=== PATIENT | male | born 1955 | race Caucasian/White ===

== ENCOUNTER 2016-10-16 16:34 | Emergency (ER) | payer OTHER ==
[~2016-10-16] VITALS: Ht 180.3 cm; Wt 81.8 kg
[~2016-10-16 16:34] MED LIST: CHLORASEPTIC 1177 M1 MM; CIPRO 250MG TA250 MG PEG; DILANTIN; DILANTIN 100MG100 MG PO; DILANTIN KAPSEA30 MG PO; GLUCOPHAGE850 MG/TAB PO; HEPARIN 50500 U/5 ML IV; MAGIC MOUTH PO; MAGIC MOUTHWASH1 M2 PO; NORCO 325 MG-51 TAB PO; NORMAL SALINE I10 ML IV; PHENOBARBITAL 330 MG PO; PROQUIN XR500 MG PO; RIOMET500 MG/5 M PEG
[2016-10-16 16:35] VITALS: BP 148/84; TEMP 97.4
[2016-10-16] MEDS ORDERED: DILANTIN 100MG100 MG PO (16:41)
[2016-10-16] MEDS ORDERED: DILANTIN KAPSEA30 MG PO (16:41)
[2016-10-16] MEDS ORDERED: PHENOBARBITAL32.4 MG PO (16:42)
[2016-10-16] MEDS ORDERED: SALAGEN 5MG TAB5 MG PO (16:43)
[2016-10-16] MEDS ORDERED: NORCO 325 MG-51 TAB PO (17:16)
[2016-10-16 17:46] VITALS: PULSE 76
== END 2016-10-16 17:47 | disposition home or self-care (01) ==
LOC: COL.ER 16:34
DX: S30.0XXA Contusion of lower back and pelvis, initial encounter (principal); S20.222A Contusion of left back wall of thorax, initial encounter; S20.221A Contusion of right back wall of thorax, initial encounter; S40.011A Contusion of right shoulder, initial encounter; S40.021A Contusion of right upper arm, initial encounter; S39.012A Strain of muscle, fascia and tendon of lower back, initial encounter; V23.4XXA Motorcycle driver injured in collision with car, pick-up truck or van in traffic accident, initial encounter; Y92.414 Local residential or business street as the place of occurrence of the external cause; G40.909 Epilepsy, unspecified, not intractable, without status epilepticus

== ENCOUNTER → 2016-11-27 | Outpatient (CLI) | payer OTHER ==
[~2016-11-27] MED LIST changes: +PHENOBARBITAL32.4 MG PO; +SALAGEN 5MG TAB5 MG PO
== END ==
LOC: COL.RAD 08:15
DX: T14.90 Injury, unspecified (principal); G89.11 Acute pain due to trauma; M25.561 Pain in right knee; M79.601 Pain in right arm; M25.511 Pain in right shoulder; V89.2XXD Person injured in unspecified motor-vehicle accident, traffic, subsequent encounter
CPT/HCPCS: A9503

== ENCOUNTER → 2016-12-02 | Outpatient (CLI) | payer OTHER | LOC: COL.RAD 14:43 | DX: M47.23 Other spondylosis with radiculopathy, cervicothoracic region (principal); R20.0 Anesthesia of skin ==

== ENCOUNTER → 2017-12-24 | Outpatient (CLI) | payer OTHER | LOC: COL.RAD 16:46 | DX: Z09 Encounter for follow-up examination after completed treatment for conditions other than malignant neoplasm (principal); Z87.39 Personal history of other diseases of the musculoskeletal system and connective tissue; Z98.1 Arthrodesis status; Z96.7 Presence of other bone and tendon implants ==

== ENCOUNTER 2019-04-27 11:20 | Day surgery (SDC) | payer OTHER ==
[~2019-04-27] VITALS: Ht 180.3 cm; Wt 73.1 kg
[2019-04-27] MEDS ORDERED: PRILOSEC 20MG20 MG PO (11:45)
[2019-04-27 11:50] VITALS: BP 132/67; PULSE 58; TEMP 98.7
[2019-04-27 12:14] LABS: ALBUMIN 3.9 gm/dL (3.5-5.0); CALCIUM 9.1 mg/dL (8.4-10.2); CREATININE, serum 0.81 (0.66-1.25); POTASSIUM 4.1 mmol/L (3.4-5.0)
[2019-04-27] MEDS ORDERED: NORCO 325 MG-51 TAB PO (14:35)
[2019-04-27 15:03] VITALS: TEMP 98.5
[2019-04-27 15:05] VITALS: BP 153/72; PULSE 66
--- NOTE | 2019-04-27 15:05 | NUR ---
Patient returns to room 8 per cart from PACU accompanied by Jazlyn PEÑA and is awake and alert. Temp 97.7 and room air sats 98%. Port a catheter noted on the right anterior chest and bandaids x2. Port insertion site soft without drainage or redness. Gauze dressing around the PEG tube insertion site dry. IV fluids continue to infuse and site is free of redness. Spouse in room. Siderails up x2 and call light in reach.
[2019-04-27 15:20] VITALS: BP 127/67; PULSE 63
--- NOTE | 2019-04-27 15:20 | NUR ---
Room air sats 97%. Resting and denies pain or nausea.
[2019-04-27 15:35] VITALS: BP 132/67; PULSE 57
--- NOTE | 2019-04-27 15:35 | NUR ---
Assisted up to the bathroom and voids and returns to room. Gait steay. Denies pain or nausea. Port a catheter insertion site soft and PEG tube guaze dressing dry.
--- NOTE | 2019-04-27 15:45 | NUR ---
IV discontinued and given PEG tube feeding instructions. Patient and spouse both verbalize understanding of these. Provided feeding supplies. Dietican and social work job titles talked with the patient. All questions were answered.
--- NOTE | 2019-04-27 15:55 | NUR ---
Dismissal instructions signed. Patient and spouse again demostrate and verbalize understanding of home cares and follow up as needed.
--- NOTE | 2019-04-27 16:05 | NUR ---
Patient dismissed to home driven by spouse and taken to the patient entrance per wheelchair and assisted into vehicle with instructions in hand by Brunilda PEÑA.
--- NOTE | 2019-04-27 16:34 | NUR ---
ASSOCIATE DIRECTOR OF DEVELOPMENT student responded to [facility] for a peg tube placement. ASSOCIATE DIRECTOR OF DEVELOPMENT student met with the patient and his , Basil. ASSOCIATE DIRECTOR OF DEVELOPMENT student presented the DME choice form and patient and chose [facility]. ASSOCIATE DIRECTOR OF DEVELOPMENT student faxed the order. The patient and his could not pickling drum operator the supplies this day. [facility] reports they can deliver 04/28/19. Patient and his were agreeable. ASSOCIATE DIRECTOR OF DEVELOPMENT student collaborated the above information with the dietitian.
== END 2019-04-27 16:05 | disposition home or self-care (01) ==
LOC: SDCO 11:20
PROVIDERS: Surgery
DX: C10.2 Malignant neoplasm of lateral wall of oropharynx (principal); R13.12 Dysphagia, oropharyngeal phase; Z79.899 Other long term (current) drug therapy; R56.9 Unspecified convulsions; Z90.49 Acquired absence of other specified parts of digestive tract; Z93.0 Tracheostomy status; Z92.3 Personal history of irradiation; G89.29 Other chronic pain; M19.90 Unspecified osteoarthritis, unspecified site; G47.33 Obstructive sleep apnea (adult) (pediatric); Z87.891 Personal history of nicotine dependence
CPT/HCPCS: C1788; J1644; J2250; J2704; J3010; J7120

== ENCOUNTER 2019-05-03 00:30 | Emergency (ER) | payer OTHER ==
[~2019-05-03] VITALS: Ht 180.3 cm; Wt 72.7 kg
[~2019-05-03 00:30] MED LIST changes: +PRILOSEC 20MG20 MG PO
[2019-05-03 00:36] VITALS: TEMP 97.6
[2019-05-03 01:03] LABS: BASO % 0.5 % (0.0-2.0); EOS # 0.5 (0.0-0.7); EOS % 8.9 % (0-4.0); GRAN # 3.7 (1.4-6.5); GRAN % 62.1 % (42.2-75.2); HEMATOCRIT 38.1 % (42.0-52.0); HEMOGLOBIN 12.9 g/dl (13.5-18.0); LYMPH # 0.8 (1.2-3.4); LYMPH % 13.3 % (20.0-51.0); MEAN CELL VOLUME 92 fl (80.0-100.0); MEAN CORPUSCULAR HEMOGLOBIN 31 pg (27.0-31.0); MEAN CORPUSCULAR HGB CONC 34 g/dl (33.0-37.0); MONO # 0.9 (0.1-0.6); PLATELET COUNT 298 K/mm3 (130-400); RED BLOOD COUNT 4.16 M/mm3 (4.20-5.60); REDCELL DISTRIBUTION WIDTH-CV 12.6 % (11.5-14.5)
[2019-05-03 01:04] LABS: INR 0.9 (0.8-3.0); PROTHROMBIN TIME 10.5 SECONDS (9.7-12.8)
[2019-05-03 01:07] LABS: PARTIAL THROMBOPLASTIN TIME 29.4 SECONDS (26.0-37.0)
[2019-05-03 01:09] LABS: ALANINE AMINOTRANSFERASE 35 U/L (21-72); ALBUMIN 4.4 gm/dL (3.5-5.0); ALKALINE PHOSPHATASE 151 U/L (50-136); ANION GAP 10 mmol/L (7-16); AST,SGOT 27 U/L (15-37); BILIRUBIN,TOTAL 0.2 mg/dL (0.0-1.0); BLOOD UREA NITROGEN 19 mg/dL (9-20); CALCIUM 9.3 mg/dL (8.4-10.2); CARBON DIOXIDE 33 mmol/L (22-30); CHLORIDE 98 mmol/L (98-107); CREATININE, serum 0.76 (0.66-1.25); GLUCOSE 66 mg/dL (74-106); LIPASE 235 U/L (23-300); MAGNESIUM 2.1 mg/dL (1.6-2.3); PHOSPHOROUS 3.4 mg/dL (2.5-4.5); POTASSIUM 5.1 mmol/L (3.4-5.0); SODIUM 140 mmol/L (137-145); TOTAL PROTEIN 8.2 gm/dL (6.4-8.2)
[2019-05-03 01:23] LABS: TROPONIN-I < 0.012 ng/mL (0.000-0.035)
[2019-05-03 01:56] LABS: COLLECTION METHOD CLEAN CATCH
[2019-05-03 02:01] LABS: MUCOUS Present /lpf; PH 7 (5-8); SQUAMOUS EPITHELIAL None Seen /hpf; URINE APPEARANCE Clear; URINE BACTERIA None Seen /hpf; URINE BILIRUBIN Negative (NEGATIVE); URINE BLOOD Negative (NEGATIVE); URINE COLOR Yellow; URINE GLUCOSE 1+ (NEGATIVE); URINE KETONE Negative (NEGATIVE); URINE LEUKOCYTE ESTERASE Negative (NEGATIVE); URINE NITRATE Negative (NEGATIVE); URINE PROTEIN(semi-quant) Negative (NEGATIVE); URINE RBC None Seen /hpf; URINE UROBILINOGEN Negative (NEGATIVE); URINE WBC None Seen /hpf
[2019-05-03 04:00] VITALS: BP 148/78
[2019-05-03 04:40] VITALS: PULSE 78
== END 2019-05-03 04:42 | disposition home or self-care (01) ==
LOC: COL.ER 00:30
PROVIDERS: Emergency Medicine
DX: R06.02 Shortness of breath (principal); R10.30 Lower abdominal pain, unspecified; C06.9 Malignant neoplasm of mouth, unspecified
CPT/HCPCS: J3010; J7030; Q9967

== ENCOUNTER 2019-05-19 12:00 | Emergency (ER) | payer OTHER ==
[~2019-05-19] VITALS: Ht 180.3 cm; Wt 72.7 kg
[2019-05-19 12:03] VITALS: BP 148/91; TEMP 98
[2019-05-19 13:53] LABS: BASO % 0.4 % (0.0-2.0); EOS # 0.3 (0.0-0.7); EOS % 3.3 % (0-4.0); GRAN # 6.2 (1.4-6.5); GRAN % 78.6 % (42.2-75.2); HEMATOCRIT 40.1 % (42.0-52.0); HEMOGLOBIN 13.6 g/dl (13.5-18.0); LYMPH # 0.5 (1.2-3.4); LYMPH % 6.3 % (20.0-51.0); MEAN CELL VOLUME 92 fl (80.0-100.0); MEAN CORPUSCULAR HEMOGLOBIN 31 pg (27.0-31.0); MEAN CORPUSCULAR HGB CONC 34 g/dl (33.0-37.0); MEAN PLATELET VOLUME 9.2 fl (7.4-10.4); MONO # 0.9 (0.1-0.6); MONO % 11.1 % (1.7-9.3); PLATELET COUNT 343 K/mm3 (130-400); RED BLOOD COUNT 4.37 M/mm3 (4.20-5.60); REDCELL DISTRIBUTION WIDTH-CV 13.2 % (11.5-14.5)
[2019-05-19 14:03] LABS: ALANINE AMINOTRANSFERASE 43 U/L (21-72); ALBUMIN 4.5 gm/dL (3.5-5.0); ALKALINE PHOSPHATASE 151 U/L (50-136); ANION GAP 8 mmol/L (7-16); AST,SGOT 27 U/L (15-37); BILIRUBIN,TOTAL 0.2 mg/dL (0.0-1.0); BLOOD UREA NITROGEN 22 mg/dL (9-20); CALCIUM 9.3 mg/dL (8.4-10.2); CARBON DIOXIDE 35 mmol/L (22-30); CHLORIDE 93 mmol/L (98-107); GLUCOSE 112 mg/dL (74-106); MAGNESIUM 2.2 mg/dL (1.6-2.3); POTASSIUM 4.8 mmol/L (3.4-5.0); SODIUM 136 mmol/L (137-145); TOTAL PROTEIN 8.4 gm/dL (6.4-8.2)
--- NOTE | 2019-05-19 14:07 | NUR ---
ALBA dowd responded to a social service liaison consult to the ED for the patient due to wanting advanced directives information. ALBA dowd met with patient and patient was interested in completing a DPOA-HC. ALBA dowd and ED staff witnessed. A copy was placed in the chart and the original and copies were provided to the patient. ALBA dowd collaborated the above information with the patient's nurse.
[2019-05-19 14:15] LABS: TROPONIN-I < 0.012 ng/mL (0.000-0.035)
[2019-05-19] MEDS ORDERED: PHENOBARBITAL32.4 MG PO (14:28)
[2019-05-19] MEDS ORDERED: NORCO 325 MG-101 TAB PO (14:30)
[2019-05-19] MEDS ORDERED: DILANTIN KAPSEA30 MG PO (15:35)
[2019-05-19] MEDS ORDERED: SALAGEN 5MG TAB5 MG PO (15:36)
[2019-05-19] MEDS ORDERED: SYNTHROID0.075 MG/T PO (15:36)
[2019-05-19] MEDS ORDERED: FLOMAX 0.40.4 MG/CAP PO (15:36)
[2019-05-19] MEDS ORDERED: LYRICA 50MG CAP50 MG PO (15:36)
[2019-05-19 17:01] VITALS: PULSE 78
== END 2019-05-19 17:01 | disposition home or self-care (01) ==
LOC: COL.ER 12:00
PROVIDERS: Emergency Medicine
DX: C32.9 Malignant neoplasm of larynx, unspecified (principal); R60.0 Localized edema; Z90.89 Acquired absence of other organs
CPT/HCPCS: J1100; J7030

== ENCOUNTER 2019-05-25 19:09 | Inpatient (IN) | payer OTHER ==
[~2019-05-25] VITALS: Ht 180.3 cm; Wt 78.6 kg
[2019-05-25] VITALS (19 sets, daily range): O2SAT 98–100
[~2019-05-25 19:09] MED LIST changes: +FLOMAX 0.40.4 MG/CAP PO; +LYRICA 50MG CAP50 MG PO; +NORCO 325 MG-101 TAB PO; +SYNTHROID0.075 MG/T PO
[2019-05-25 21:46] LABS: ALBUMIN 4.2 gm/dL (3.5-5.0); BILIRUBIN,TOTAL 0.4 mg/dL (0.0-1.0); CALCIUM 8.8 mg/dL (8.4-10.2); CREATININE, serum 0.63 (0.66-1.25); POTASSIUM 5.1 mmol/L (3.4-5.0); TOTAL PROTEIN 7.9 gm/dL (6.4-8.2)
[2019-05-25 22:40] LABS: BASO % 0.4 % (0.0-2.0); EOS # 0.2 (0.0-0.7); EOS % 2.6 % (0-4.0); GRAN # 7.1 (1.4-6.5); GRAN % 79.2 % (42.2-75.2); HEMATOCRIT 39.5 % (42.0-52.0); HEMOGLOBIN 13.4 g/dl (13.5-18.0); LYMPH # 0.5 (1.2-3.4); LYMPH % 5.9 % (20.0-51.0); MEAN CELL VOLUME 93 fl (80.0-100.0); MEAN CORPUSCULAR HEMOGLOBIN 32 pg (27.0-31.0); MEAN CORPUSCULAR HGB CONC 34 g/dl (33.0-37.0); MEAN PLATELET VOLUME 9.4 fl (7.4-10.4); MONO % 11.5 % (1.7-9.3); PLATELET COUNT 254 K/mm3 (130-400); RED BLOOD COUNT 4.25 M/mm3 (4.20-5.60); REDCELL DISTRIBUTION WIDTH-CV 13.5 % (11.5-14.5)
--- NOTE | 2019-05-25 23:10 | NUR ---
PT arrived to the unit via wheelchair accompanied by MARIANA Yip. PT stood and transferred himself to the bed with no issues in mobility. PT is present in the room and is helping answer questions since patient is having a hard time speaking up. Questions and concerns regarding evening medications addressed, oriented to room and unit policies such as visiting hours. Will continue to assess and monitor.
[2019-05-26] VITALS (422 sets, daily range): BP systolic 127–151; BP diastolic 72–91; PULSE 72–88; TEMP 97.1–98.9; O2SAT 80–100
[2019-05-26] MEDS ORDERED: FLUOROURACIL IV (06:17)
--- NOTE | 2019-05-26 06:50 | NUR ---
Dr. Apodaca at bedside.
--- NOTE | 2019-05-26 07:20 | NUR ---
Report given to MARIANA Steinberg.
--- NOTE | 2019-05-26 09:32 | NUR ---
I am advised by nurse Maryan PEÑA, that pt has an ambulatory chemotherapy infusion going at this time with 5FU. After speaking with the oncology office, he is reported to have also recieved Keytruda yesterday as well. I reminded Maryan and also spoke with Heather Cote RN about the need for chemotherapy precautions to be followed closely during the infusion and for 2 days following infusion completion with urine and 5 days with stool. I am also told that pt is going to the OR for a tracheostomy, so did also advised Elizabeth Yin RN, OR rug cleaning supervisor of need for chemotherapy precautions to be followed in the OR as well. All individuals expressed understanding of precautions and need to follow for protection of staff, pt, and environment.
--- NOTE | 2019-05-26 11:06 | NUR ---
Initial visit; Patient and family thanked Party Bus Driver for looking in on him though declined Spiritual Care.
--- NOTE | 2019-05-26 13:30 | NUR ---
To OR via bed acc by OR staff.
--- NOTE | 2019-05-26 16:22 | NUR ---
Petroleum Supply Specialist met with patient's , Basil (ph#[phone]) as patient had tracheostomy this afternoon and was not able to answer questions. Patient lives in [place] with his and son, Manny (ph#[phone]). Patient sees Dr. rUias for primary care and obtains medications from [facility] pharmacy with no difficulties. Patient does not use any DME and is independent with ADLS. Patient has Advance Directives located in EMR. SW to continue to follow to ensure safe discharge.
--- NOTE | 2019-05-26 16:23 | NUR ---
Coughing frequently, small amount of blood from around tracheostomy. Moderate amount of mucous from trach. informs staff with each episode. SPO2 remains 97% and above. Morphine given for pain and to promote relaxation
--- NOTE | 2019-05-26 16:26 | NUR ---
Returned from OR with 6 cuffed Shiley trach secured with sutures and held with trach ties-intact. Gauze with serosang drainage surrounds site. Coughing frequently, placed on cool mist O2 at 35% (8L) SPO2 99-100 suctioning mod amount of blood tinged secretions from external portion of trach.
--- NOTE | 2019-05-26 16:30 | NUR ---
Instructions CHENCHO hickey home acc by chauncey.
--- NOTE | 2019-05-26 18:45 | NUR ---
Update given to Dr Apodaca, RN requests pain medication, discusses pts frequent coughing requiring suctioning and dressing changes/reinforcment. Serosanguinous drainage to trach, sutures intact, no edema. See orders.
--- NOTE | 2019-05-26 20:00 | NUR ---
Patient awake and watching TV at this time. at the bedside. Patient is alert and oriented x4. Responds appropriately to questions by writting them down. Patient rates pain a 6/10 in the neck. Pain meds were provided and did help per patient. Assessment complete. Lungs are clear bilaterally in all arellano. HR and rhythm are regular with normal S1 and S2 heard. Bowel sounds active x4. Patient has a PEG tube. Surrounding tissue is clean, dry, and intact. Senior Software Architect are strong, peripheral pulses palpable. Patient has SCD's on. Patients skin surrounding the trach is reddened. There is serosanguinous drainage on the gauze dressing. Patient is having large amounts of bloody sputum. Have been suctioning around cannula frequently. Will be bringing in evening meds soon to give through PEG tube. No further needs at this time. Will continue to monitor closely. Call light within reach.
--- NOTE | 2019-05-26 21:00 | NUR ---
Patient given medications (oxycodone, tylenol, and robitussin) through PEG tube at this time. Patient also given free water to clear tubing. As soon as medication was to the stomach, patient began vomiting. RT Yfn called in to help with suctioning. Patient proceeded to have nausea for 10mins after. Let patient know that this nurse would try to only give IV pain meds for now until he is able to tolerate the PO meds. Patient confirms understanding and agrees with that plan.
--- NOTE | 2019-05-26 22:30 | NUR ---
Patient is requesting his BID dose of phenobarbital and phenytoin. Called and spoke with Dr. Apodaca and got his home medication and dosages reordered. Dr Apodaca had put in a consult from dietary, but no tube feedings were entered. Confirmed with patient and that patient takes Jevity 1.5cal. Will get ahold of house supervisior, Clif[place], to get some Jevity.
--- NOTE | 2019-05-26 22:50 | NUR ---
Patient is given half of a Jevity 1.5 glory carton followed by his epilepsy medications. After a few minutes patient begins vomiting again. Emesis is mostly consisting of water with the medications. Minimal tube feed present. Remained with patient for 10mins after emesis to ensure airway is kept clear. Provided suctioning as needed. Patient is better now. Will hold off for half an hour and see how he tolerates the rest of the tube feed.
--- NOTE | 2019-05-26 23:40 | NUR ---
Checked in with patient at this time and he has not had anymore emesis. Asked patient if he would like to finish off the rest of the Jevity, he denies want right now. Let him know we would try again later. No further needs. Will continue to monitor. Call light within reach.
[2019-05-27] VITALS (266 sets, daily range): BP systolic 132–158; BP diastolic 60–77; PULSE 68–81; TEMP 97.7–98.6; O2SAT 74–100
--- NOTE | 2019-05-27 01:00 | NUR ---
Patient agrees to finish the rest of his jevity. flushed peg with about 10mls of water, 130ml of jevity given, and flushed again with about 20mls. Patient tolerated well. Remained with patient for 5mins post feeding to ensure no vomitus. Patient does not report any nausea. Will continue to monitor. Call light within reach.
--- NOTE | 2019-05-27 05:10 | NUR ---
Assisted patient with Tube feeding at this time. Instilled half of a carton of Jevity 1.5 (4oz total) with 20ml of free water following. Stayed with patient for 5 mins after feeding to ensure no nausea or vomiting. Patient tolerated well and is now resting.
--- NOTE | 2019-05-27 06:35 | NUR ---
Assisted patient with morning pills. Crushed pills into fine powder and mixed with the other half of the [employer] carton. Patient's PEG tube was slower to drain with the medications in it, but did slowly with some manipulation of the tubing. Patient tolerated well. No signs of nausea and patient does not have sick feeling or urge to be sick. Stayed with patient for 5 mins after feeding. Will continue to monitor. Call light within reach. Will be back to room shortly with oncoming shift.
--- NOTE | 2019-05-27 07:20 | NUR ---
Bedside report given to MARIANA Melo
--- NOTE | 2019-05-27 11:22 | NUR ---
fabric worker foreman met with patient and spouse to set up for trach supplies and tube feedings at home. [facility] has previous orders to supply patient with Jevity 1.5 and has trach supplies. Spouse signed choice form for [facility] and worker gave a referral for trach supplies and faxed orders and clinical information. Worker discussed home health for continued trach teaching at home and patient and spouse feel that this is beneficial. Patient's son also lives with patient/spouse and will be helpful with trach care. Patient will be transferred to the medical floor today and is aware that respiratory will begin trach teaching this date.
[2019-05-27 12:37] LABS: ALBUMIN 3.7 gm/dL (3.5-5.0); BILIRUBIN,TOTAL 0.6 mg/dL (0.0-1.0); CALCIUM 8.4 mg/dL (8.4-10.2); CREATININE, serum 0.59 (0.66-1.25); PHOSPHOROUS 3.6 mg/dL (2.5-4.5)
[2019-05-27 12:44] LABS: PRE ALBUMIN 22.6 mg/dL (17.6-36.0)
--- NOTE | 2019-05-27 13:30 | NUR ---
Patient transferred to Medical room 317 via WC with all belongings and chart sent with. MARIANA Casas present and MAIDA Sosa at bedside. Care transferred at this time.
--- NOTE | 2019-05-27 15:45 | NUR ---
ANTOINE Killian provided Medicare.gov's list of home health agencies. The patient's choice is [facility]. Dinorah from [facility] reports they did receive the referral. ANTOINE awaiting response.
--- NOTE | 2019-05-27 16:41 | NUR ---
1400: PATIENT TRANSFERRED FROM ICU TO ROOM 317. ARRIVED VIA BED ACCOMPANIED BY RN. IN ATTENDANCE. UPON ARRIVAL PATIENT A/O X 4. NON VERBAL /T TRACH. COMMUNICATES VIA WRITING AND HAND GESTURES. TRACH AND OXYYGEN SET UP BY RT. ON 8L O2. LUNG SOUNDS CTA THROUGH OUT. SEE EMAR FOR MEDICATION GIVEN FOR REPORTS OF NECK AND THROAT PAIN. CONTINUOUS CHEMO PUMP IN USE INFUSING THROUGH ISABELLA PICC. CHEMO PRECAUTIONS IN PLACE. LR INFUSING @ 75ML/HR ORDERED. PATIENT AND ORIENTED TO ROOM. ALL QUESTIONS ANSWERED.
--- NOTE | 2019-05-27 20:30 | NUR ---
Initial shift assessment done- will give tube feeding at this time- getting 7 times a day- i can jevity 1.5cal,,, requesting pain meds also- oxycodone liquid given per PEG for pain- Up to bathroom voiding without problems, at bedside tonight- IV fluids of LR at 75cc/hr per purple port- has home chemo infusing per home pump to red port- Has Trach- requesting to be suctioned at this time- suctioned for clear thin secretions- drain gauze changed around trach- has trach mask for o2 at 8L-
[2019-05-28 00:43] VITALS: BP 142/67; PULSE 78; TEMP 98.6
[2019-05-28 05:06] VITALS: BP 137/61; PULSE 72; TEMP 98.4
--- NOTE | 2019-05-28 06:14 | NUR ---
Busy night- getting pain meds every 3-4 hours, Tube feedings every 3-4 hours- requesting to be suctioned every 1-2hours, drain gauze around trach changed 3-4 times for serous drainage- VSS- Up to bathroom with assist-voiding without problems
[2019-05-28 07:26] VITALS: BP 160/57; PULSE 74; TEMP 98.2
--- NOTE | 2019-05-28 08:33 | NUR ---
Patient sitting up in bed watching TV. A&Ox4, Denies pain and discomfort. No reported SOB VSS blow by 7L NC O2. Patient is coughing and small amount of blood tinged sputum out of trach. Suction PRN. PEG tube mid abdomen, CDI. Patient assisted with tube feed. Chemo precuations in place. No further needs expressed from patient. Call light within reach
--- NOTE | 2019-05-28 09:58 | NUR ---
Spoke with Dr Currie's office about when pump will need to be dc'd upon completion of infusion. They report it will be due to be removed at around 1130 and did send orders to dc pump and flush port.
[2019-05-28 13:10] VITALS: BP 159/76; PULSE 97; TEMP 98.5
--- NOTE | 2019-05-28 14:22 | NUR ---
I spoke with Dr Currie's office as pt has 117ml delivered from pump and total volume is 150--meaning at this time he would have 12 more [address] of infusion. Dr Currie gave order to dc pump now. Pt is to be at office on FridayMay 31 at 0800 for stat labs and then attachment of new pump. His current pump was bagged after chemotherapy bag and tubing was removed and given to his to take to office Friday. His PICC line Red clave was flushed with 20 ml of NS and the cap was changed while wearing chemo gown and gloves. Report to Brittanie Blunt RN. Son has been called and pt is ready to discharge soon.
--- NOTE | 2019-05-28 15:36 | NUR ---
Patient transferred by wheelchair by nursing staff to vehicle. PICC in [facility]. Personal belongings with patient and family. Discharge paperwork with family, patient verbalized an understanding of following doctors orders. No further needs expressed from patient.
== END 2019-05-28 15:38 | disposition home health service (06) | DRG 13 ==
LOC: COL.ER 19:09 → ICU 20:19 → MEDICAL 05-27 13:30
PROVIDERS: ADMIT Otolaryngology
PROC: 0B110F4 Bypass Trachea to Cutaneous with Tracheostomy Device, Open Approach (ICD-10-PCS; principal; 2019-05-26 13:00)
DX: C10.9 Malignant neoplasm of oropharynx, unspecified (principal); K21.9 Gastro-esophageal reflux disease without esophagitis; M19.90 Unspecified osteoarthritis, unspecified site; G89.29 Other chronic pain; M54.9 Dorsalgia, unspecified; N40.0 Benign prostatic hyperplasia without lower urinary tract symptoms; Z87.891 Personal history of nicotine dependence
CPT/HCPCS: J2270; J2405; J2704; J3010; J7120

== ENCOUNTER 2019-06-03 02:10 | Inpatient (IN) | payer OTHER ==
[~2019-06-03] VITALS: Ht 180.3 cm; Wt 81.9 kg
[~2019-06-03 02:10] MED LIST changes: +DILANTIN O100 MG/4 M; +FLUOROURACIL IV
[2019-06-03 02:59] LABS: BASO % 0.2 % (0.0-2.0); EOS # 0.1 (0.0-0.7); EOS % 0.5 % (0-4.0); GRAN # 14.6 (1.4-6.5); GRAN % 88.9 % (42.2-75.2); HEMATOCRIT 33.1 % (42.0-52.0); HEMOGLOBIN 11.8 g/dl (13.5-18.0); LYMPH # 0.5 (1.2-3.4); LYMPH % 2.9 % (20.0-51.0); MEAN CELL VOLUME 89 fl (80.0-100.0); MEAN CORPUSCULAR HEMOGLOBIN 32 pg (27.0-31.0); MEAN CORPUSCULAR HGB CONC 36 g/dl (33.0-37.0); MEAN PLATELET VOLUME 9.4 fl (7.4-10.4); MONO # 1.2 (0.1-0.6); PLATELET COUNT 319 K/mm3 (130-400); RED BLOOD COUNT 3.74 M/mm3 (4.20-5.60); REDCELL DISTRIBUTION WIDTH-CV 12.7 % (11.5-14.5)
[2019-06-03 03:14] LABS: ALBUMIN 3.7 gm/dL (3.5-5.0); BILIRUBIN,TOTAL 0.4 mg/dL (0.0-1.0); CALCIUM 8.3 mg/dL (8.4-10.2); CREATININE, serum 0.72 (0.66-1.25); POTASSIUM 4.2 mmol/L (3.4-5.0); TOTAL PROTEIN 7.4 gm/dL (6.4-8.2)
[2019-06-03] MEDS ORDERED: LEVASOLN PEG (04:04)
[2019-06-03 05:37] VITALS: BP 111/66; PULSE 86; TEMP 99.8
--- NOTE | 2019-06-03 05:46 | NUR ---
Pt arrived to unit from ER for trach care and increased secretions. Patient is here today with in room. She answers most questions. He communicates via cell phone. Patient is alert and oriented with VSS. Patient has trach that is new on. Reddned around trach. Needs frequent suctioning. Also has peg tube to upper abdomen. SCDs on. Denies needs at this time. CAll light within reach, will continue to monitor
--- NOTE | 2019-06-03 06:05 | NUR ---
Pt has PICC to RHIANNA, CD&I.
--- NOTE | 2019-06-03 08:20 | NUR ---
Patient in bed resting. Alert and oriented x 3. Patient up to use urinal. Denies pain at this time. Trac present with reddened skin around trac site. Patient having productive cough with yellow sputum present. G tube noted. Denies further needs at this time.
[2019-06-03 08:57] VITALS: BP 122/58; PULSE 73; TEMP 99.6
--- NOTE | 2019-06-03 09:50 | NUR ---
Contacted Respiratory therapy, patient having large amount of sputum present. Would like suctioned.
[2019-06-03 12:55] VITALS: BP 146/72; PULSE 94; TEMP 99.1
--- NOTE | 2019-06-03 15:41 | NUR ---
Matrix Worker met with patient and patient's , Basil (ph#[phone]) to discuss discharge planning. Patient unable to speak due to trach and answered intake questions. Patient lives at home with and son, Manny (ph#[phone]). Patient sees Dr. Cristiano Urias for primary care and obtains medications from [facility]. Patient's , Basil is DPOA-HC and copy located in EMR. Patient receives Home Health Services from [facility] and Basil states she has had some minor concerns with them. Basil reports one of the home health workers was not compliant with her request to not wear shoes in the home. ANTOINE provided Basil with education on expressing those concerns. Basil states at this time, they plan to continue with [facility]. ANTOINE to continue to follow.
[2019-06-03 16:12] VITALS: BP 134/63; PULSE 71; TEMP 99.3
--- NOTE | 2019-06-03 18:35 | NUR ---
Patient has done well throughout the day. Denies pain at this time. Trach care provided. Continues to have large amount of sputum from trach. Suction provided as needed. Fluids continue to infuse per orders. Denies further needs at this time. WIll report off to assembler final.
[2019-06-03 21:00] VITALS: BP 138/81; PULSE 87; TEMP 97.8
[2019-06-03 23:32] VITALS: BP 145/67; PULSE 76; TEMP 98.2
[2019-06-04 04:38] VITALS: BP 153/80; PULSE 95; TEMP 98.5
--- NOTE | 2019-06-04 06:59 | NUR ---
Patient did not rest well throughout the night. Noted to be up coughing frequently. Noted to be able to cough up secretions and use yaunker to suction secretions. No deep suctioning needed this shift. Discussion had with patient about tube feeding contents and how patient thinks it may be a lactose issue that is causing the increased secretions. Patient also told this nurse that his is "making me have 7 feedings a day". Education provided on following orders for frequency and the consequences of over feeding. Day shift will follow up with dietitician and physician regarding these things. Skin around trach site noted to be red and irritated. Requested that day shift ask about something to put on the skin to protect it. Reported to MARIANA García.
[2019-06-04 07:14] LABS: BASO % 0.3 % (0.0-2.0); EOS # 0.1 (0.0-0.7); EOS % 1.1 % (0-4.0); GRAN # 7.9 (1.4-6.5); GRAN % 84.5 % (42.2-75.2); LYMPH # 0.5 (1.2-3.4); LYMPH % 4.8 % (20.0-51.0); MEAN CELL VOLUME 93 fl (80.0-100.0); MEAN CORPUSCULAR HEMOGLOBIN 32 pg (27.0-31.0); MEAN CORPUSCULAR HGB CONC 34 g/dl (33.0-37.0); MEAN PLATELET VOLUME 9.6 fl (7.4-10.4); MONO # 0.8 (0.1-0.6); MONO % 8.9 % (1.7-9.3); PLATELET COUNT 284 K/mm3 (130-400); RED BLOOD COUNT 3.17 M/mm3 (4.20-5.60); REDCELL DISTRIBUTION WIDTH-CV 12.9 % (11.5-14.5)
[2019-06-04 07:20] LABS: ALBUMIN 2.8 gm/dL (3.5-5.0); BILIRUBIN,TOTAL 0.6 mg/dL (0.0-1.0); CREATININE, serum 0.63 (0.66-1.25); POTASSIUM 3.5 mmol/L (3.4-5.0); TOTAL PROTEIN 5.8 gm/dL (6.4-8.2)
[2019-06-04 07:43] LABS: HEMATOCRIT 29.5 % (42.0-52.0)
[2019-06-04 07:58] VITALS: BP 129/58; PULSE 77; TEMP 98.9
--- NOTE | 2019-06-04 08:00 | NUR ---
Patient in bed resting. Alert and oriented x 3. Shift assessment complete. Tracheostomy in place, redness noted around trach site. Gtube clamped. SCDs to BLE. Denies further needs at this time.
--- NOTE | 2019-06-04 09:38 | NUR ---
SW faxed updates to Crystal at [facility].
--- NOTE | 2019-06-04 09:45 | NUR ---
Patient called out to nurses station, states that he is having neck pain, K pad provided this AM but patient states it did not help. Medications given per orders.
[2019-06-04 12:00] VITALS: BP 131/54; PULSE 73; TEMP 98.8
--- NOTE | 2019-06-04 14:52 | NUR ---
The patient's tube feeding formula was changed from Jevity 1.5 to Two Rolando HN (2Cal/ml). SW [facility] and to [facility] . legal services manager will continue to follow.
--- NOTE | 2019-06-04 15:37 | NUR ---
JUDE reports that if the patient discharges over the weekend the SW should contact the senior electronics technician to ensure the patient has a supply of his new formula. Lynette the Dietitian reports they can provide formula, if needed.
[2019-06-04 16:55] VITALS: BP 98/77; PULSE 77; TEMP 99.7
--- NOTE | 2019-06-04 18:42 | NUR ---
Patient has done well throughout the day, complains of neck pain, k pad provided. Medications given per orders, Tolerating Gtube feedings without difficulties, Minimal residual noted before next feeding. Trach suctioning provided as needed. Denies further needs at this time. Will report off to retail shift manager.
[2019-06-04 19:34] VITALS: BP 134/56; PULSE 77; TEMP 98.9
--- NOTE | 2019-06-04 20:19 | NUR ---
Sitting up in bed with family in room. Patient writes out that he is suppose to have chemo on Friday. Explained that we would relay this information to the provider. Denies pain. Patient uses suction to clear thick pale yellow secretions from tracheal tube. Lungs clear, most sounds are in throat area. Peg tube patent. Flushed with 15mL water, return of 30mL with some gastric contents noted. Patient and son watching procedure. Tube feeding performed at this time. Patient participates in tube feeding. Flushed with approx 15mL water when feeding completed.
--- NOTE | 2019-06-04 21:04 | NUR ---
Administered pain medication as prescribed per patient request due to pain in neck.
--- NOTE | 2019-06-04 21:21 | NUR ---
Patient requests deep suctioning down trach due to excess secretions. Using sterile technique, performed suctioning with 8 guatemalan catheter. Patient able to cough out moderate amount of thick light yellow sputum. Patient tolerates with little difficulty. Family leaves for evening. Patient denies further needs at this time.
[2019-06-04 23:44] VITALS: BP 134/55; PULSE 73; TEMP 98.7
--- NOTE | 2019-06-05 00:18 | NUR ---
Lying in bed with eyes open. HOB elevated 75 degrees. Patient explains that he is having pain in head and neck and requests pain medication at this time. Administered pain medication as prescribed. Patient denies further needs.
[2019-06-05 03:43] VITALS: BP 137/58; PULSE 73; TEMP 98.6
--- NOTE | 2019-06-05 03:45 | NUR ---
Sitting up in bed with eyes open. Still having soreness in neck and head. Trach with oxygen at 8L per the trach mask. Patient using suction to trach as needed. Having some bloody yellow mucus through the trach. Patient denies any needs at this time.
[2019-06-05 07:27] VITALS: BP 129/69; PULSE 73; TEMP 98.8
[2019-06-05 07:58] LABS: BASO % 0.4 % (0.0-2.0); EOS # 0.2 (0.0-0.7); EOS % 2.3 % (0-4.0); GRAN # 7.4 (1.4-6.5); GRAN % 86.6 % (42.2-75.2); HEMOGLOBIN 10.1 g/dl (13.5-18.0); LYMPH # 0.4 (1.2-3.4); LYMPH % 4.2 % (20.0-51.0); MEAN CELL VOLUME 93 fl (80.0-100.0); MEAN CORPUSCULAR HEMOGLOBIN 32 pg (27.0-31.0); MEAN CORPUSCULAR HGB CONC 35 g/dl (33.0-37.0); MEAN PLATELET VOLUME 9.6 fl (7.4-10.4); MONO # 0.5 (0.1-0.6); MONO % 6.1 % (1.7-9.3); PLATELET COUNT 286 K/mm3 (130-400); RED BLOOD COUNT 3.15 M/mm3 (4.20-5.60)
[2019-06-05 08:16] LABS: CREATININE, serum 0.64 (0.66-1.25); POTASSIUM 4.1 mmol/L (3.4-5.0)
[2019-06-05 08:22] LABS: HEMATOCRIT 29.2 % (42.0-52.0)
[2019-06-05 11:43] VITALS: BP 143/63; PULSE 80; TEMP 98.4
[2019-06-05 16:09] VITALS: BP 137/61; PULSE 80; TEMP 99
[2019-06-05 20:37] VITALS: BP 124/88; PULSE 71; TEMP 99.4
--- NOTE | 2019-06-05 21:00 | NUR ---
PT RESTING IN BED W/ HOB ELEVATED/ COMMUNICATES BY WRITING OR TEXTING ON PHONE, TRACH HAS SMALL AMT A THICK PALE YELLOW SPTUM ON DRAIN GAUZE. CHANGED AT THIS TIME. HEATED HUMIDIFIED OXYGEN AT 8L PER TRACH MASK. PT USES YAUNKERS TO SUCTION PRN AROUND TRACH. TEMP 99.4 ORAL. ENC VERY FREQ C&DB. RT NOTIFIED OF SPUTUM SAMPLE NEEDED PER ORDER. ASSISTED PT TO BSC. HAD LOOSE LIQ TANNISH STOOL WITH VOID. NOTED STAGE 2 PRESSURE WOUND TO COCCYX. SEE ASSESSMENT. ENC PT TO OFF LOAD WEIGHT FREQ. REFUESED SCD'S AT THIS TIME. AND SON HERE EARLIER.VERY SUPPORTIVE. CALL LIGHT IN REACH.
--- NOTE | 2019-06-05 21:45 | NUR ---
SPUTUM SAMPLE COLLECTED AT THIS TIME VIA TRACH WITH 12FR SUCTION CATHETER. PT TOLERATES THIS WELL WITH MILD DISCOMFORT. 1-2ML NORMAL SALINE USED TO LOOSEN SECRETIONS TO SX. O2 SAT INCREASED 4% WITH AFTER CLEARING TRACH. ENCOUAGED PT TO HAVE SX CATH AT BEDSIDE FOR SUCTION NEEDED; PT DECLINES AND WOULD LIKE TO ONLY USE YANKAUER. SPOKE WITH PT ABOUT HOME CARE AND SUPPLIES AVAILABLE TO HIM. SOUNDS IF PT HAS ALL APPROPIATE SUPPLIES AT HOME. RE-EDUCATED PT ON HME AND HUIDITY USE IN THE HOME ENVIRONMENT.
[2019-06-05 23:51] VITALS: BP 129/61; PULSE 78; TEMP 99.7
--- NOTE | 2019-06-06 01:40 | NUR ---
PT C/O THROAT SORE AFTER COUGHING REAL HARD TO CLEAR THROAT OF SECRETIONS. SEE MAR FOR NORCO GIVEN. SL THICK PALE YELLOW SECRETIONS FROM TRACH NOTED. NOTIFIED RT TRACH NEEDS TO BE DONE. AREA AROUND TRACH SL RED AND IRRITATED. RECHECKED TEMP 99.4 ORALLY. DOWN FROM 99.7. PT NOT GETTING MUCH SLEEP TONIGHT. FATIGUED. HAD X2 MORE LOOSE LIQ BROWN STOOLS. MEPILEX DRSG TO COCCYX INTACT.
--- NOTE | 2019-06-06 02:18 | NUR ---
SLEEPING AT THIS TIME. NO RESP DISTRESS.
[2019-06-06 04:12] VITALS: BP 144/63; PULSE 69; TEMP 98.1
--- NOTE | 2019-06-06 04:20 | NUR ---
PT C/O GERD- BURNING. NOTIFIED DAYDAY VALENTIN. NEW ORDER OBTAINED FOR PROTONIX IV.
--- NOTE | 2019-06-06 04:47 | NUR ---
PT HAD A VERY RESTLESS NIGHT WITH SORE THROAT FROM COUGHING TO CLEAR SECRETIONS FROM TRACH, EXCORIATION OF SURROUNDING AREA OF TRACH. MAY NEED WOUND CONSULT FOR TRACH SITE AND COOCYX WOUND.
[2019-06-06 09:05] VITALS: BP 128/58; PULSE 64; TEMP 98.5
[2019-06-06 11:26] VITALS: PULSE 57; TEMP 98.4
[2019-06-06 17:15] VITALS: BP 128/62; PULSE 78; TEMP 98.4
--- NOTE | 2019-06-06 18:00 | NUR ---
Patient has been having some issues with the skin around the trach. Have been changing the gauze around the trach to help the area dry but it is still constantly wet from secretions and moisture around the the trach. He has been getting norco as often as it is due, every 4 hours. He is having pain around the trach and to the back of his neck. His was here and they are very worried about him getting to his chemo appointment tomorrow. He has been tolerating his tube feedings well. Attempted to get him to do them but he is not will to do it. He holds the tube and the syringe but will not pour the feeding or flush it. No other changes at this time. Call light within reach. Dr Mercado did speak with ENT about the trach sking breakdown and he said to keep it dry and will see the patient in the morning.
--- NOTE | 2019-06-06 20:00 | NUR ---
PT FRUSTRATED WITH EXCORIATION AROUND TRACH. CHANGED TRACH DRSG. RT WILL BE HERE TO DO TRACH CARE. O2 8L HEATED HUMIDIFIED. HOB ELEVATED. SEE MAR FOR PAIN MED GIVEN. RT POSTERIOR NECK MUSCLES ACHE. HERE AND MASSAGED AREA. PT SEEMS ALITTLE FORGETFUL. PT WILL ASK THE SAME QUESTIONS OR STATEMENT MORE THAN ONCE IN A SHORT AMT OF TIME. TOLERATED TUBEFFEDING PER PEG WELL. MEPILEX DRSG TO COCCYX WOUND STTAGE 2. CALL LIGHT IN REACH. PTS C/O USED CALL LIGHT BUT NO ANSWER AND NO ONE AT THE DESK. WROTE NURSES PHONE EXTENTION ON INFORMATION BOARD ON WALL TO USE IF NEEDED. PT REF SCD'S.
--- NOTE | 2019-06-06 20:30 | NUR ---
RT HERE. CLEANING TRACH AND CHANGING DRSG. PLACED GAUZE UNDER TRACH PLAACED MORE GAUZE TO IRRITATED SKIN BELOW TRACH THEN PLACED TEGADERM TO ATTEMPT TO KEP AREA DRY.
[2019-06-06 21:00] VITALS: BP 127/75; PULSE 71; TEMP 98.4
--- NOTE | 2019-06-07 00:08 | NUR ---
PT DOZING UPON ENTERING THE RROM. NO RESP DISTRESS. DRSGS TO TRACH AREA CLEAN AT THIS TIME. GAUZE & TEGADERM INTACT KEEPING SKIN DRY. PT NATE TUBEFEEDING WELL. GAVE NORCO FOR CONTINUED RT POSTERIOR NECK ACHE. PT SUCTIONS TRACH W/ YAUNKERS PRN.
[2019-06-07 00:32] VITALS: BP 138/54; PULSE 68; TEMP 98.7
--- NOTE | 2019-06-07 04:11 | NUR ---
RT HERE TO CHANGE TRACH DRSG AND CLEAN SITE. RT SIDE UNDER TRACH GAURD IS AN OPEN WOUND WITH SMALL AMT OF BLEEDING. TISSUE IS RAW. VERY PAINFUL FOR PT. NECK TIES CHANGED AT THIS TIME. YELLOW SPUTUM OOZING FROM AROUND STOMA AND PT EXPECTORATED LARGE AMT OF PALE YELLOW SPUTUM VIA YAUNKERS. EARLIER RT STAFF REPORTED THEY SUCTIONED TRACH WITH A BLOODY MUCOUS PLUG RETURN. SEE MAR FOR NORCO GIVEN.
[2019-06-07 04:47] VITALS: BP 135/62; PULSE 64; TEMP 98.7
--- NOTE | 2019-06-07 07:24 | NUR ---
Report from Molly PEÑA.
[2019-06-07 08:48] VITALS: BP 141/59; PULSE 73; TEMP 98.9
--- NOTE | 2019-06-07 09:13 | NUR ---
ANTOINE contacted Yesi from [facility]. Yesi reports they visited the patient on 05/29 then on 06/01 for trach care after his last discharge on, 05/28. The patient was readmitted on 06/03. Yesi reports they can visit the patient once a day, if needed. The patient's nurse reports trach care is scheduled two times a day but trach care is done five times a day here at the hosptial. ANTOINE attempted to contact, Gracia the patient's , to discuss with her if she would be agreeable to [facility] visit once a day for trach care, left message. protective services case worker will continue to follow.
--- NOTE | 2019-06-07 09:34 | NUR ---
ANTOINE faxed progress note and nursing notes to Yesi at [facility]. .
--- NOTE | 2019-06-07 09:40 | NUR ---
PICC intact left upper arm. With sterile technique left upper arm PICC dressing change done with insertion site cleansed with ChloraPrep 1, chlorhexidine impregnated disc applied, skin prep, StatLock, and Tegaderm applied. No signs or symptoms of IV complications noted. No concerns voiced. If patient is discharged today primary care nurse is to change. Patient Will Return to Express Unit Next Friday for Cares. Patient and Voiced Understanding of Instructions.
--- NOTE | 2019-06-07 09:54 | NUR ---
PT ASSISTED WITH TUBE FEEDING THIS AM. AM MEDS GIVEN ORDRED. PT TOLERATING WELL. RT IN TO PROVIDED TRACH CARES THIS AM.
--- NOTE | 2019-06-07 10:45 | NUR ---
The patient and his , Basil were interested in changing home health agencies. ANTOINE presented Medicare.gov's list of agencies. They chose [facility]. ANTOINE faxed referral. ANTOINE to contact [facility] to inform them of the patient's choice.
--- NOTE | 2019-06-07 12:30 | NUR ---
PT'S WAS IN ROOM DURING TRACH CARE. SHE HAD QUESTIONS ABOUT SUCTION CATHETER AND CLEANING THE AREA WELL INNER CANNULA. ALL QUESTIONS WERE ANSWERED AND IF A DEMONSTRATION WAS NEEDED IT WAS PROVIDED AT THIS TIME. INSTRUCTED AND PT IF THEY HAD ANY OTHER QUESTIONS OR CONCERNS TO PLEASE LET US KNOW AND WE WOULD FURTHER INSTRUCT.
[2019-06-07 13:01] VITALS: BP 148/64; PULSE 69; TEMP 99
--- NOTE | 2019-06-07 15:16 | NUR ---
David from [facility] reports they can accept the patient for services. David inquired about the patient's IV antibiotic Cefepime that is administered twice a day, which includes a 0100 administration. ANTOINE informed the patient's nurse about possibly administering once a day or orally. food services coordinator will continue to follow.
[2019-06-07 16:16] VITALS: BP 135/61; PULSE 96; TEMP 98.2
[2019-06-07] MEDS ORDERED: OMNICEF 300MG300 MG PO (17:52)
[2019-06-07] MEDS ORDERED: TRANSDERM-0.5 MG/21 TD (17:53)
--- NOTE | 2019-06-07 18:58 | NUR ---
REPORT TO BRENDAN PEÑA.
--- NOTE | 2019-06-08 09:37 | NUR ---
The patient discharged, 06/07 with [facility] after 1700. ANTOINE faxed orders to David at [facility]. There are no additional needs at this time.
== END 2019-06-07 19:00 | disposition home or self-care (01) | DRG 206 ==
LOC: COL.ER 02:10 → SURG 03:39
PROVIDERS: Emergency Medicine; Physician Assistant; ADMIT Student in an Organized Health Care Education/Training Program
DX: J95.03 Malfunction of tracheostomy stoma (principal); E46 Unspecified protein-calorie malnutrition; Y83.8 Other surgical procedures as the cause of abnormal reaction of the patient, or of later complication, without mention of misadventure at the time of the procedure; C10.9 Malignant neoplasm of oropharynx, unspecified; G40.909 Epilepsy, unspecified, not intractable, without status epilepticus; Z90.49 Acquired absence of other specified parts of digestive tract; Z93.1 Gastrostomy status; Z87.01 Personal history of pneumonia (recurrent); Z92.21 Personal history of antineoplastic chemotherapy; Z79.891 Long term (current) use of opiate analgesic; Z87.891 Personal history of nicotine dependence
CPT/HCPCS: OP; 99231-AI; 99232-AI; 99239; A4216; C9113; G0378; J0692; J1650; J2060; J7030

== ENCOUNTER 2019-06-15 10:30 | Outpatient (RCR) | payer OTHER ==
[2019-05-25 10:16] VITALS: BP 152/63; PULSE 82; TEMP 97.9
--- NOTE | 2019-06-01 09:20 | NUR ---
Here for cares. with sterile technique left upper arm PICC dressing change done with insertion site cleansed with chloraprep x 1, chlorhexidine impregnate disk applied, skin prep, stat lock, and tegaderm applied. no signs or symptoms of IV complications noted. no concerns voiced. to return next week for cares. voiced understanding of instructions.
[2019-06-01 09:46] VITALS: BP 152/66; PULSE 96; TEMP 98.9
[~2019-06-15] VITALS: Ht 180.3 cm; Wt 75.4 kg
[~2019-06-15 10:30] MED LIST changes: +LEVASOLN PEG; +NORCO 325 MG-101 TAB PEG; -NORCO 325 MG-101 TAB PO; +OMNICEF 300MG300 MG PO; +PHENOBARBITAL32.4 MG PEG; +PRILOSEC 20MG20 MG PEG; -PRILOSEC 20MG20 MG PO; +SYNTHROID0.075 MG/T PEG; -SYNTHROID0.075 MG/T PO; +TRANSDERM-0.5 MG/21 TD
== END 2019-06-15 10:32 | disposition home or self-care (01) ==
LOC: EUO 10:30
DX: Z45.2 Encounter for adjustment and management of vascular access device (principal); C01 Malignant neoplasm of base of tongue
CPT/HCPCS: C1751; C1892

== ENCOUNTER → 2019-07-22 | Outpatient (CLI) | payer OTHER ==
[~2019-07-22] MED LIST changes: -NORCO 325 MG-101 TAB PEG; +NORCOELIX PO
== END ==
LOC: COL.RAD 12:54
DX: C01 Malignant neoplasm of base of tongue (principal); Z95.9 Presence of cardiac and vascular implant and graft, unspecified
CPT/HCPCS: Q9967

== ENCOUNTER 2019-09-06 13:00 | Outpatient (RCR) | payer OTHER ==
--- NOTE | 2019-06-15 10:45 | NUR ---
Here for cares. with sterile technique left upper arm PICC dressing change done with insertion site cleansed with chloraprep x 1, chlorhexidine impregnated disk applied, skin prep, stat lock, and tegaderm applied. no signs or symptoms of IV complications noted. no concerns voiced. patient to return next week for cares Friday at 0900 due to cont chemotherapy. unable to change one cap due to chemotherapy being infused. arrangements made for cap change at oncology office. voiced understanding of instructions.
[2019-06-15 11:00] VITALS: BP 117/47; PULSE 61; TEMP 98.4
--- NOTE | 2019-06-15 11:31 | NUR ---
Pt had continuous chemo infusion into purple port of double lumen picc today. I did not interrupt this infusion to change cap of purple port. I did change cap of red port, good blood return was noted, and red port was flushed with 3 saline flushes. I called cancer center and spoke with Surekha PEÑA who stated they could change cap of purple port on Friday when that chemo infusion was discontinued. Pt's sent home with 2 caps for this purpose. Pt's verbalized understanding of this plan for cap change in cancer clinic on friday.
--- NOTE | 2019-06-21 08:50 | NUR ---
here for cares. With sterile technique left upper arm PICC dressing change done with insertion site cleansed with ChloraPrep 1, chlorhexidine impregnated disc applied, skin prep, StatLock, and Tegaderm applied. No signs or symptoms of IV complications noted. No concerns voiced. Patient to return next week for cares. Patient voiced understanding of instructions.
[2019-06-21 09:27] VITALS: BP 118/64; PULSE 69; TEMP 98.6
[2019-06-28 09:13] VITALS: BP 151/63; PULSE 71; TEMP 98.4
[2019-07-05 15:30] VITALS: BP 113/89; PULSE 61; TEMP 98
[2019-07-12 09:53] VITALS: BP 135/58; PULSE 59; TEMP 98
--- NOTE | 2019-07-12 10:10 | NUR ---
here for cares. With sterile technique left upper arm PICC dressing change done with insertion site cleansed with ChloraPrep 1 chlorhexidine impregnated disc applied, skin prep, StatLock, and Tegaderm applied. No signs or symptoms of IV complications noted. No concerns voiced. Arm wrapped with Ayo to protect catheter. Patient to return next week for cares. Patient voiced understanding of instructions.
[2019-07-19 11:25] VITALS: BP 127/63; PULSE 79; TEMP 98.6
--- NOTE | 2019-07-19 11:45 | NUR ---
Here for cares. With sterile technique left upper arm PICC dressing change done with insertion site cleansed with ChloraPrep 1, chlorhexidine impregnated disc applied, StatLock, skin prep, and Tegaderm applied. Primary care nurse informed me that unable to obtain blood return from PICC line. Flushed both ports flushed with 20 mL normal saline without difficulty with no blood return noted. Chest x-ray done. Catheter tip location noted in the lower SVC/CVA junction. Chest x-ray report faxed to oncology Center. The plan is to obtain order for calf flow and instill cath flow into PICC next visit.
[2019-07-26 14:00] VITALS: BP 135/60; PULSE 83; TEMP 98.1
--- NOTE | 2019-07-26 14:00 | NUR ---
here for cares. Express unit nurse has perform dressing change. Left upper arm PICC intact. Unable to obtain blood return. Primary care nurse to instill cath flow.
--- NOTE | 2019-07-26 14:40 | NUR ---
blood return to purple port, but not to red port. Cath flow given as ordred through red port, waited 30 min, no blood aspirated, will wait 90min. concerned about humidify air for and trach, but thought they could wait for aspiration time. Pt suctions trach self that he brings in. 1515 port was flushed and blood aspirated well in both ports by Jazlyn PEÑA. Pt will return Friday am before chemo to get dressing change and cap change
--- NOTE | 2019-08-02 10:45 | NUR ---
Here for cares. PICC intact left upper arm with sterile dressing change done with insertion site cleansed with chloraprep x 1, chlorhexidine impregnated disk applied, skin prep, stat lock, and tegaderm applied. no signs or symptoms of IV complications noted. no concerns voiced. to return next week for cares. voiced understanding of instructions.
[2019-08-02 10:50] VITALS: BP 102/58; PULSE 72; TEMP 98.5
--- NOTE | 2019-08-09 10:30 | NUR ---
Here for cares. with sterile technique left upper arm PICC dressing change done with insertion site cleansed with chloraprep x 1, chlorhexidine impregnated disk applied, skin prep, stat lock, and tegaderm applied. no signs or symptoms of IV complications noted. no concerns voiced. re-wrapped with joanne to protect catheter. to return next week for cares. voiced understanding of instructions.
[2019-08-09 10:56] VITALS: BP 142/74; PULSE 86; TEMP 98
[2019-08-16 11:03] VITALS: BP 141/81; PULSE 90; TEMP 97.9
[2019-08-23 11:12] VITALS: BP 123/70; PULSE 90; TEMP 97.9
[2019-08-30 11:30] VITALS: BP 119/74; PULSE 82; TEMP 97.6
[~2019-09-06] VITALS: Ht 180.3 cm; Wt 77.5 kg
[2019-09-06 14:22] VITALS: BP 134/74; PULSE 94; TEMP 97.6
[2019-09-10] MEDS ORDERED: DILANTIN KAPSEA30 MG PO (12:44)
--- NOTE | 2019-09-13 08:54 | NUR ---
Pt will not cmoe for scheduled apt today.Pt is inpt.
== END 2019-09-13 08:55 | disposition home or self-care (01) ==
LOC: EUO 13:00
DX: Z45.2 Encounter for adjustment and management of vascular access device (principal); Z92.21 Personal history of antineoplastic chemotherapy
CPT/HCPCS: J2997

== ENCOUNTER 2019-10-14 12:49 | Outpatient (CLI) | payer MEDICARE, OTHER ==
[~2019-10-14 12:49] MED LIST changes: +GLUCOPHAGE1000 MG PO; +LEVOXYL0.1 MG PO
--- NOTE | 2019-10-14 13:15 | NUR ---
Here for PICC evaluation. Left upper arm PICC intact. with sterile technique left upper arm PICC dressing change done with insertion site cleansed with chloraprep x 1, chlorhexidine impregnated disk applied, skin prep, stat lock, and tegaderm applied. no signs or symptoms of IV complications noted. no other concerns voiced. caps changed and lab drawn by AMRIT PEÑA. both ports flushed with normal saline with good blood return noted. to return to home health for cares. voiced understanding of instructions.
[2019-10-14 13:27] VITALS: BP 120/76; PULSE 63; TEMP 98.5
--- NOTE | 2019-10-14 13:33 | NUR ---
blood return obtained from both ports of PICC,lab obtained,caps changed.PANCHITO Miranda here to do dressing change.Pt discharged via wheelchair with .
[2019-10-14 14:00] LABS: MEAN CELL VOLUME 103 fl (80.0-100.0); MEAN CORPUSCULAR HEMOGLOBIN 35 pg (27.0-31.0); MEAN CORPUSCULAR HGB CONC 34 g/dl (33.0-37.0); MEAN PLATELET VOLUME 10.5 fl (7.4-10.4); PLATELET COUNT 196 K/mm3 (130-400); RED BLOOD COUNT 3.12 M/mm3 (4.20-5.60); REDCELL DISTRIBUTION WIDTH-CV 20.1 % (11.5-14.5)
[2019-10-14 14:08] LABS: ALBUMIN 3.9 gm/dL (3.5-5.0); BILIRUBIN,TOTAL 0.2 mg/dL (0.0-1.0); CALCIUM 8.8 mg/dL (8.4-10.2); CREATININE, serum 0.79 (0.66-1.25); MAGNESIUM 1.8 mg/dL (1.6-2.3); POTASSIUM 5.3 mmol/L (3.4-5.0); TOTAL PROTEIN 7.9 gm/dL (6.4-8.2)
[2019-10-14 14:13] LABS: BAND 7 % (0-10); EOSINOPHIL 5 % (0-4); LYMPHOCYTE 7 % (20.0-51.0); NEUTROPHILS 77 % (42.0-75.2)
[2019-10-14 14:16] LABS: PLATELET ESTIMATE NORMAL (NORMAL)
[2019-10-14 14:17] LABS: ANISOCYTOSIS 1+
[2019-10-14 14:22] LABS: HEMATOCRIT 32.1 % (42.0-52.0)
== END 2019-10-14 16:00 ==
LOC: EUO 12:49
PROVIDERS: Internal Medicine Medical Oncology
DX: C01 Malignant neoplasm of base of tongue (principal); C10.2 Malignant neoplasm of lateral wall of oropharynx; C77.0 Secondary and unspecified malignant neoplasm of lymph nodes of head, face and neck

== ENCOUNTER → 2019-11-26 | Outpatient (CLI) | payer MEDICARE, OTHER | LOC: COL.RAD 14:38 | DX: C01 Malignant neoplasm of base of tongue (principal); Z98.1 Arthrodesis status; Z95.9 Presence of cardiac and vascular implant and graft, unspecified; Z90.49 Acquired absence of other specified parts of digestive tract; R91.8 Other nonspecific abnormal finding of lung field | CPT/HCPCS: Q9967 ==

== ENCOUNTER 2019-12-02 13:00 | Outpatient (RCR) | payer MEDICARE, OTHER ==
[2019-12-02] VITALS (11 sets, daily range): BP systolic 122–160; BP diastolic 80–93; PULSE 74–94; TEMP 97.7–98.7
--- NOTE | 2019-12-02 14:00 | NUR ---
Here for blood transfusion. with sterile technique left upper arm PICC dressing change done with insertion site cleansed with chloraprep x 1, chlorhexidine impregnated disk applied, skin prep, stat lock, and tegaderm applied. no signs or symptoms of IV complications noted. no concerns voiced. to continue with cares by home health agency.
== END 2019-12-02 18:20 | disposition home or self-care (01) ==
LOC: EUO 13:00
DX: C01 Malignant neoplasm of base of tongue (principal); C10.2 Malignant neoplasm of lateral wall of oropharynx; C77.0 Secondary and unspecified malignant neoplasm of lymph nodes of head, face and neck
CPT/HCPCS: J7050; P9040

== ENCOUNTER → 2020-01-12 | Outpatient (CLI) | payer MEDICARE, OTHER | LOC: COL.RAD 14:18 | DX: C01 Malignant neoplasm of base of tongue (principal); J32.9 Chronic sinusitis, unspecified; Z95.9 Presence of cardiac and vascular implant and graft, unspecified; Z98.890 Other specified postprocedural states | CPT/HCPCS: Q9967 ==

== ENCOUNTER 2020-04-20 15:09 | Outpatient (CLI) | payer MEDICARE, OTHER ==
--- NOTE | 2020-04-20 15:15 | NUR ---
Pt arrived via wheelchair for PICC evaluation.Per Home health nurse they were having difficulty flushing PICC.PICC line flushed by both Trinity Agarwal and Trinity Hobson.Blood return obtained.Labs obtained.Caps changed.Multiple flushes in both lumens.This nurse spoke with PANCHITO Miranda.No further action needed.[facility]Pt assisted to car where was waiting.
--- NOTE | 2020-04-20 15:36 | NUR ---
Spoke with Mike at [facility].Lab core slip sent with pt.No signature on slip.Per lab they cannot accept this as an order.This nurse called Trinity Irby at office and requested lab order (CBC,CMP,LDH) Order received for CBC and other labs crossed out.Can only obtaine CBC as ordered.
[2020-04-20 15:55] LABS: MEAN CELL VOLUME 114 fl (80.0-100.0); MEAN CORPUSCULAR HGB CONC 33 g/dl (33.0-37.0); MEAN PLATELET VOLUME 10.9 fl (7.4-10.4); PLATELET COUNT 323 K/mm3 (130-400); RED BLOOD COUNT 2.58 M/mm3 (4.20-5.60); REDCELL DISTRIBUTION WIDTH-CV 13.2 % (11.5-14.5)
[2020-04-20 15:57] LABS: HEMATOCRIT 29.4 % (42.0-52.0); HEMOGLOBIN 9.6 g/dl (13.5-18.0); MEAN CORPUSCULAR HEMOGLOBIN 37 pg (27.0-31.0)
[2020-04-20 16:12] VITALS: BP 133/73; PULSE 115; TEMP 98.6
[2020-04-20 16:51] LABS: BAND 2 % (0-10); EOSINOPHIL 3 % (0-4); LYMPHOCYTE 5 % (20.0-51.0); NEUTROPHILS 86 % (42.0-75.2)
[2020-04-20 16:53] LABS: HYPOCHROMIA 1+; STOMATOCYTE 1+; TOXIC GRANULATION PRESENT
== END 2020-04-20 16:20 | disposition home or self-care (01) ==
LOC: EUO 15:09
PROVIDERS: Internal Medicine Medical Oncology
DX: C10.2 Malignant neoplasm of lateral wall of oropharynx (principal); C77.0 Secondary and unspecified malignant neoplasm of lymph nodes of head, face and neck; C01 Malignant neoplasm of base of tongue

== ENCOUNTER 2020-05-05 12:48 | Outpatient (CLI) | payer MEDICARE, OTHER ==
[2019-05-26 15:56] VITALS: TEMP 96
--- NOTE | 2020-05-05 13:30 | NUR ---
Here for a PICC evaluation. PICC intact left upper arm with dressing dated 05/02/20. Yara PEÑA flushed catheter and able to obtain a blood return after a position change. Reported "hard to flush." Chest x ray done and reviewed. PICC tip location in lower SVC. RN will instil cath yocasta. Patient's informed of plan.
--- NOTE | 2020-05-05 15:03 | NUR ---
GOOD BLOOD RETURN FROM BOTH PORTS, AND BOTH PORTS FLUSHED EASILY AFTER CATH MARTHA.
[2020-05-05 16:34] VITALS: BP 133/94; PULSE 116; TEMP 98.9
[2020-05-06] MEDS ORDERED: LEVOXYL0.1 MG PO (17:20)
== END 2020-05-05 16:41 | disposition home or self-care (01) ==
LOC: EUO 12:48
DX: C61 Malignant neoplasm of prostate (principal); C10.2 Malignant neoplasm of lateral wall of oropharynx; C77.0 Secondary and unspecified malignant neoplasm of lymph nodes of head, face and neck
CPT/HCPCS: J2997

== ENCOUNTER 2020-05-06 11:02 | Inpatient (IN) | payer MEDICARE, OTHER ==
[~2020-05-06] VITALS: Ht 170.2 cm; Wt 85.3 kg
[2020-05-06] VITALS (166 sets, daily range): BP systolic 134; BP diastolic 58; PULSE 103; O2SAT 59–100
[2020-05-06 11:48] LABS: BASO # 0.1 (0.0-0.2); BASO % 0.3 % (0.0-2.0); EOS # 0.4 (0.0-0.7); EOS % 1.9 % (0-4.0); GRAN # 17.2 (1.4-6.5); GRAN % 86.2 % (42.2-75.2); HEMOGLOBIN 10.2 g/dl (13.5-18.0); LYMPH # 0.9 (1.2-3.4); LYMPH % 4.5 % (20.0-51.0); MEAN CELL VOLUME 114 fl (80.0-100.0); MEAN CORPUSCULAR HEMOGLOBIN 37 pg (27.0-31.0); MEAN CORPUSCULAR HGB CONC 33 g/dl (33.0-37.0); MEAN PLATELET VOLUME 11.5 fl (7.4-10.4); MONO # 1.2 (0.1-0.6); MONO % 6.2 % (1.7-9.3); PLATELET COUNT 389 K/mm3 (130-400); RED BLOOD COUNT 2.73 M/mm3 (4.20-5.60); REDCELL DISTRIBUTION WIDTH-CV 13.8 % (11.5-14.5)
[2020-05-06 11:49] LABS: INR 1.1 (0.8-3.0); PROTHROMBIN TIME 12.2 SECONDS (9.7-12.8)
[2020-05-06 11:50] LABS: HEMATOCRIT 31.2 % (42.0-52.0)
[2020-05-06 12:00] LABS: ALANINE AMINOTRANSFERASE 51 U/L (4-49); ALBUMIN 4.1 gm/dL (3.5-5.0); ALKALINE PHOSPHATASE 158 U/L (50-136); ANION GAP 19 mmol/L (7-16); AST,SGOT 55 U/L (15-37); BILIRUBIN,TOTAL 0.4 mg/dL (0.0-1.0); C-REACTIVE PROTEIN 8.1 mg/dL (0.0-0.9); CALCIUM 9.2 mg/dL (8.4-10.2); CARBON DIOXIDE 20 mmol/L (22-30); CHLORIDE 101 mmol/L (98-107); CREATININE, serum 3.05 (0.66-1.25); POTASSIUM 4.6 mmol/L (3.4-5.0); SODIUM 139 mmol/L (137-145); TOTAL PROTEIN 7.6 gm/dL (6.4-8.2)
[2020-05-06 12:20] LABS: BLOOD UREA NITROGEN 128 mg/dL (9-20); GLUCOSE 403 mg/dL (74-106); TROPONIN-I < 0.012 ng/mL (0.000-0.035)
[2020-05-06 14:36] LABS: COLLECTION METHOD CLEAN CATCH
[2020-05-06 14:59] LABS: PH 5 (5-8); SQUAMOUS EPITHELIAL 0-2 /hpf; URINE APPEARANCE Hazy; URINE BACTERIA None Seen /hpf; URINE BILIRUBIN Negative (NEGATIVE); URINE BLOOD Negative (NEGATIVE); URINE COLOR Yellow; URINE GLUCOSE 1+ (NEGATIVE); URINE KETONE Negative (NEGATIVE); URINE LEUKOCYTE ESTERASE Trace (NEGATIVE); URINE NITRATE Negative (NEGATIVE); URINE PROTEIN(semi-quant) Negative (NEGATIVE); URINE RBC None Seen /hpf; URINE UROBILINOGEN Negative (NEGATIVE)
[2020-05-06] MEDS ORDERED: LEVOXYL0.1 MG PO (17:20)
--- NOTE | 2020-05-06 18:53 | NUR ---
Pt received from OR at 1825 per bed. Pt has trach in place and being bagged. RT at bedside and placed pt on vent. Pt has left upper arm PICC in place, no blood return noted. IV fluids and epidural infusing. Cox to DD and peg tube in place but is currently clamped. Dr Perez was called and notified of arrival and asked [facility] for further vent orders at this time, will continue to follow.
--- NOTE | 2020-05-06 19:00 | NUR ---
Received report from MARIANA Flanagan.
--- NOTE | 2020-05-06 19:30 | NUR ---
This RN notified by RT Carmina, that due to patient's pre-existing uncuffed 6.0 trach tube, patient could not be adequately mechanically ventilated without exchanging the trach tube to one with a cuff. Dr. Perez notified, who stated trach cuff would need to be exchanged, but to contact ENT to exchange the tube. Carmina TALAVERA, then contacted ENT specialist, Dr. Apodaca, who ordered that patient not be ventilated, and instead be placed on trach collar. Carmina TALAVERA and Yfn TALAVERA, at the patient's bedside at this time. Will continue to monitor closely.
--- NOTE | 2020-05-06 22:10 | NUR ---
Per Dr. Samuels's request, contacted anesthesia regarding patient's pain control. Patient is currently receiving epidural at 8mL/hr. Patient was not ventilated and therefore, was not sedated. Patient is alert and oriented and grimacing in pain. When asked if in severe pain, patient nods his head. OUTREACH ANALYST, Jennifer Camejo, stated epidural could be increased to 12mL/hr, and that additional pain medication could be ordered if needed by Dr. Samuels.
[2020-05-06 22:33] LABS: ARTERIAL BLD GAS O2 SATURATION 98.7 % (92-100); ARTERIAL BLD GAS TCO2 CT 18.5; ARTERIAL BLOOD GAS BASE EXCESS -6.9 (-2-2); ARTERIAL BLOOD GAS HCO3 17.5 meq/L (22-26); ARTERIAL BLOOD GAS PCO2 30.9 mmHg (35-45); ARTERIAL BLOOD GAS PO2 119.7 mmHg (80-100); ARTERIAL BLOOD GAS pH 7.37 (7.35-7.45)
[2020-05-07] VITALS (399 sets, daily range): BP systolic 100–161; BP diastolic 56–88; PULSE 95–110; TEMP 98.5–100.1; O2SAT 60–100
--- NOTE | 2020-05-07 00:37 | NUR ---
Updated Dr. Samuels on patient's condition. Patient's oxygen saturation is 100% on 40% FiO2 and 10L via trach collar, so settings are reduced to 33% and 8L. ABG obtained by RT Yfn, appropriate to these settings. To DC vent, sedation, and restraint orders. Notified Dr. Samuels that ordered cathflow was not administered. Patient's left upper arm PICC line is easily flushing and exhibits positional blood return, therefore, this RN felt cathflow was not needed at this time. Several sets of blood cultures had been previously ordered, with one set obtained by this RN. According to Dr. Samuels, no need to draw further cultures at this time. Also notified Dr. Samuels of anesthesia order to increase epidural to 12mL/hr with breakthrough orders to be determined by Dr. Samuels herself. Received orders for morphine 2mg IV every 3 hours PRN for breakthrough pain. Will continue to monitor.
--- NOTE | 2020-05-07 03:35 | NUR ---
Notified Dr. Samuels of patient's softening blood pressures since administration of PRN morphine. Received orders to initiate NS at 100mLs/hr. Also notified of BG of 151 at 0330 from 343 at approximately 2300. Received orders for hypoglycemic protocol and to change accuchecks from q 1 hour to q 4 hours. Will continue to monitor.
[2020-05-07 05:58] LABS: BASO % 0.3 % (0.0-2.0); EOS # 0.1 (0.0-0.7); EOS % 0.6 % (0-4.0); GRAN # 11.9 (1.4-6.5); GRAN % 88.3 % (42.2-75.2); LYMPH # 0.6 (1.2-3.4); LYMPH % 4.3 % (20.0-51.0); MEAN CELL VOLUME 114 fl (80.0-100.0); MEAN CORPUSCULAR HGB CONC 33 g/dl (33.0-37.0); MEAN PLATELET VOLUME 11.4 fl (7.4-10.4); MONO # 0.8 (0.1-0.6); MONO % 5.9 % (1.7-9.3); PLATELET COUNT 292 K/mm3 (130-400); RED BLOOD COUNT 2.22 M/mm3 (4.20-5.60); REDCELL DISTRIBUTION WIDTH-CV 13.9 % (11.5-14.5)
[2020-05-07 06:02] LABS: HEMATOCRIT 25.2 % (42.0-52.0); HEMOGLOBIN 8.2 g/dl (13.5-18.0); MEAN CORPUSCULAR HEMOGLOBIN 37 pg (27.0-31.0)
[2020-05-07 06:13] LABS: BILIRUBIN,TOTAL 0.4 mg/dL (0.0-1.0); CALCIUM 7.7 mg/dL (8.4-10.2); CREATININE, serum 2.88 (0.66-1.25); MAGNESIUM 2.7 mg/dL (1.6-2.3); PHOSPHOROUS 4.7 mg/dL (2.5-4.5); POTASSIUM 4.8 mmol/L (3.4-5.0); TOTAL PROTEIN 5.9 gm/dL (6.4-8.2)
--- NOTE | 2020-05-07 07:00 | NUR ---
REPORT RECEIVED FROM SREE PEÑA. PT ON TC OT 33%. PT HAS NS RUNNING AND EPIDURAL TO SPINE.
--- NOTE | 2020-05-07 07:45 | NUR ---
Report given to MARIANA Avina.
--- NOTE | 2020-05-07 14:45 | NUR ---
MAY HOLD MUCOMYST FOR TODAY PER INESSA DE LA ROSA
--- NOTE | 2020-05-07 17:00 | NUR ---
PT'S EPIDURAL EMPTY. ANESTHESIA CALLED AND CAME AND REPLACED.
--- NOTE | 2020-05-07 21:30 | NUR ---
Assisted with catheter care and repsoitioning in bed. Patient grimacing and "squirming" all over the bed and guarding with minimal positional changes. PRN morphine administered for breakthrough pain.
--- NOTE | 2020-05-07 22:05 | NUR ---
While performing a skin assessment and checking patient's epidural site this nurse noticed that a small amount of clear to light yellow drainage had leaked out from around epidural dressing. Anesthesia notified and reported that is common and usually due to weeping from edema around the site. Stated that the area could be reinforced with further dressings if needed. Will continue to monitor.
[2020-05-08] VITALS (192 sets, daily range): BP systolic 103–141; BP diastolic 57–71; PULSE 15–111; TEMP 98.2–99.5; O2SAT 75–100
[2020-05-08 05:17] LABS: BASO % 0.3 % (0.0-2.0); EOS # 0.4 (0.0-0.7); EOS % 3.9 % (0-4.0); GRAN # 7.7 (1.4-6.5); GRAN % 82.6 % (42.2-75.2); LYMPH # 0.6 (1.2-3.4); LYMPH % 6.1 % (20.0-51.0); MEAN CELL VOLUME 115 fl (80.0-100.0); MEAN CORPUSCULAR HGB CONC 32 g/dl (33.0-37.0); MEAN PLATELET VOLUME 11.3 fl (7.4-10.4); MONO # 0.6 (0.1-0.6); MONO % 6.7 % (1.7-9.3); PLATELET COUNT 244 K/mm3 (130-400); RED BLOOD COUNT 1.97 M/mm3 (4.20-5.60); REDCELL DISTRIBUTION WIDTH-CV 13.8 % (11.5-14.5)
[2020-05-08 05:21] LABS: HEMATOCRIT 22.7 % (42.0-52.0); HEMOGLOBIN 7.3 g/dl (13.5-18.0); MEAN CORPUSCULAR HEMOGLOBIN 37 pg (27.0-31.0)
[2020-05-08 05:28] LABS: ALBUMIN 2.6 gm/dL (3.5-5.0); BILIRUBIN,TOTAL 0.3 mg/dL (0.0-1.0); CALCIUM 7.4 mg/dL (8.4-10.2); CREATININE, serum 1.86 (0.66-1.25); MAGNESIUM 2.2 mg/dL (1.6-2.3); PHOSPHOROUS 3.6 mg/dL (2.5-4.5); POTASSIUM 4.5 mmol/L (3.4-5.0); TOTAL PROTEIN 5.3 gm/dL (6.4-8.2)
[2020-05-08 05:34] LABS: PRE ALBUMIN 15.9 mg/dL (17.6-36.0)
--- NOTE | 2020-05-08 07:30 | NUR ---
REPORT RECEIVED FROM MARIANA ANGELO
--- NOTE | 2020-05-08 08:45 | NUR ---
Admitted with left upper arm PICC. PICC intact left upper arm with sterile dressing change done with insertion site cleansed with chloraprep x 1, chlorhexidine impregnated disk applied, skin prep, stat lock, and tegderm applied. caps changed. both ports flushed with 10ml normal saline with good blood return noted. no signs or symptoms of IV complications noted. no concerns voiced. re-wrapped with joanne to protect catheter.
--- NOTE | 2020-05-08 12:47 | NUR ---
patient taken up to room 343. josey nunes aware of arrival. felicity davis helps settles patient. update given to via phone.
--- NOTE | 2020-05-08 13:00 | NUR ---
Patient arrived to floor from ICU via bed. Patient is sleepy but rouses with some effort. While awake patient responds to some questions and grimices, answers yes when asked if he is having pain, administered PRN pain medication per order. IVF and antibiotic running per order. Epidural in place. Midline incision has some bloody drainage that is dried, otherwise well approximated and no indications of infection. Tube feeding at 35 ml per hour. Cox in place. Call light within reach, bed alarm on.
--- NOTE | 2020-05-08 23:04 | NUR ---
Mr. Mau Salas paged. Patient requests additional analgesic. Per Mr. Salas, may administer one [place]
[2020-05-09 04:00] VITALS: BP 150/55; PULSE 102; TEMP 98.2
[2020-05-09 06:06] LABS: CALCIUM 8.6 mg/dL (8.4-10.2); CREATININE, serum 1.63 (0.66-1.25); PHOSPHOROUS 4.3 mg/dL (2.5-4.5); POTASSIUM 5.1 mmol/L (3.4-5.0)
[2020-05-09 07:11] VITALS: BP 143/83; PULSE 104; TEMP 98.2
[2020-05-09 11:03] VITALS: BP 148/80; PULSE 107; TEMP 98
--- NOTE | 2020-05-09 11:32 | NUR ---
The patient has a oropharyngeal cancer s/p trach and PEG. SW contacted the patient's , Basil (ph#[phone]), to discuss discharge plan. The patient lives in [place] with Basil and their son, Manny (ph#[phone]). Basil reports that the patient needs assistance with ADLs and has a walker and oxygen from [facility]. She states that she helps the patient bathe and his trach care. She states that he is not receiving any home health services. The patient's PCP is Dr. Cristiano Urias and he receives his medications from [facility]. Basil reports no difficulties obtaining his meds. The patient's DPOA-HC is in EMR and it designates Basil and his son, Manny. PT/OT are recommending post-acute rehab upon discharge. ANTOINE discussed this with Basil. Basil reports that she would like for the patient to come home and for her to take care of him, but would be agreeable to post-acute rehab. Basil was agreeable for ANTOINE to send referrals to [facility], [facility], and [facility]. ANTOINE consulted Jenny at [facility]. ANTOINE contacted and faxed a referral to the other two facilities. Awaiting screens.
--- NOTE | 2020-05-09 13:08 | NUR ---
Desi, at [facility], reports that they would not be able to accept the patient, due to medical complexity.
--- NOTE | 2020-05-09 14:36 | NUR ---
Patient resting in bed, appears calm and comfortable since epidural adjusted this morning. Patient still grimices when awake, but is resting more. Humidified oxygen at 8L via trach cuff. New bottle of tube feeding hung upon recipt from dietary, new tubing and fresh water hung with it, nutrition supplement administered. Midline well approximated, power intact.
[2020-05-09 16:19] VITALS: BP 154/65; PULSE 110; TEMP 97.2
--- NOTE | 2020-05-09 18:31 | NUR ---
Patient resting in bed at this time, sleeping, but rouses easily. While awake patient grimices and is restless, but is able to follow simple instructions. Epidural in place, was refilled by anesthesia, patient has PECA button. PEG tube to kangaroo pump at 54 ml per hour, free water flush at 125 ml per 4 hours per nutrition recommendation. Residual has never been above 15 ml. Bed alarm on.
[2020-05-09 19:22] VITALS: BP 157/84; PULSE 109; TEMP 98.3
--- NOTE | 2020-05-09 21:14 | NUR ---
Bedside shift report received. pt lying in bed. squirming a lot. epidural flowing and probe placed in hand. no speech. able to follow instructions to turn for assessment. some facial grimancing. trace with thick yellow mucus, suction at bedside. trach humidifier present. stevenson intact and draining. PEG tube to epigastric regiuon noted with TF @ 54mls/hr. 19 intact power to abd. meds given to gravity in PEG without issues. held for a few mins for dilantin. lungs clear posteriorly. occasional cough noted. remains NPO. will cont to monitor
--- NOTE | 2020-05-09 21:28 | NUR ---
RT called for deep suction as pt with increased secretions. epidural insertion site dressing present. moderate saturation to under dressing.
--- NOTE | 2020-05-09 23:53 | NUR ---
PT ROUNDED ON. appears visibly in distress. coughed up moderate thick yellow secrections onto gauze. cleaned up. no secretion overload at this time. pt nodded yes when asked if he was squrming due to pain. pt unable to pinpoint where pain is. anesthesia called to assess epidural insertion site. they will be up shortly.
[2020-05-10] VITALS (7 sets, daily range): BP systolic 106–155; BP diastolic 45–83; PULSE 94–107; TEMP 98.3–98.9
--- NOTE | 2020-05-10 00:28 | NUR ---
ANESTHESIA CAME TO ASSESS EPIDURAL SITE AND FOUND IT TO BE DISLODGED. DR Tamar KISER CALLED IN REGARDS TO REINSERTING EPIDURAL AND HE SAID YES. UPON DRESSING REMOVAL, 2 SMALL BLEEDING SITES NOTED TO MIS UPPER BACK AND BANDAID APPLIED. AREA SURROUNDING EPI INCISION SITE APPEARS ALTERED. OPTIFOAM APPLIED FOR PROTECTION AND DR KISER CALLED AGAIN. ORDER RECEIVED FOR STAGE 1 OPHTHALMIC TECH PUMP. MACHINE II CUTTER IN ROOM AND WILL ORDER. PT CONTINUES TO GRIMANCE
--- NOTE | 2020-05-10 00:34 | NUR ---
Anesthesist left with epidural canister
--- NOTE | 2020-05-10 02:03 | NUR ---
Pt more relaxed with occasional grimancing on ORTHOTIC FITTER. push button within reach. TF bag and bottle changed. bed alarm on. pt repositioned but moves self around in bed. hell proteftors put on but pt removed
--- NOTE | 2020-05-10 04:24 | NUR ---
PT HAD ABDOMINAL SURGERY AND HAD AN EPIDURAL IN PLACE. ON 05/09 RN FOUND THAT THE EPIDURAL HAD COME OUT. ANETHESIA SAID THAT HIS EPIDURAL SITE IS IN BAD SHAPE. THEREFORE A NEW EPIDURAL WAS NOT PUT IN. PT WAS PLACED ON A MULLING MACHINE OPERATOR PUMP WITH AN ETCO2. HOWEVER THE PATIENT HAS A TRACH AND WE DO NOT HAVE THE CORRECT SUPPLIES TO MANAGE A TRACH AND MONITOR CO2. RN PLACED NASAL CANNUAL WITH ETCO2 BUBBLE IN FRONT OF THE TRACH. HOWEVER IT OFTEN BECOMES OCCLUDED WITH PATIENTS SECRETIONS AND READS INCORRECTLY PT IS ALSO ON HEATED AEROSOL TO THIN SECRETIONS.
[2020-05-10 06:28] LABS: BASO % 0.3 % (0.0-2.0); EOS # 0.5 (0.0-0.7); EOS % 6.2 % (0-4.0); GRAN # 5.7 (1.4-6.5); GRAN % 77.7 % (42.2-75.2); LYMPH # 0.6 (1.2-3.4); LYMPH % 8.5 % (20.0-51.0); MEAN CELL VOLUME 116 fl (80.0-100.0); MEAN CORPUSCULAR HGB CONC 31 g/dl (33.0-37.0); MEAN PLATELET VOLUME 10.7 fl (7.4-10.4); MONO # 0.5 (0.1-0.6); MONO % 6.7 % (1.7-9.3); PLATELET COUNT 251 K/mm3 (130-400); RED BLOOD COUNT 2.01 M/mm3 (4.20-5.60)
[2020-05-10 06:36] LABS: CALCIUM 8.2 mg/dL (8.4-10.2); CREATININE, serum 1.34 (0.66-1.25); POTASSIUM 4.3 mmol/L (3.4-5.0)
[2020-05-10 07:09] LABS: HEMATOCRIT 23.4 % (42.0-52.0); HEMOGLOBIN 7.3 g/dl (13.5-18.0); MEAN CORPUSCULAR HEMOGLOBIN 36 pg (27.0-31.0)
--- NOTE | 2020-05-10 07:35 | NUR ---
end of shift note: pt's pain moderately controlled with DATA ENTRY OPERATOR pump. slept for <1 hour several times and requested to sit up on side of bed x3 this shift. Co2 monitor placed underneath trach for accurate RR reading. pt with frequent secretions thus canula changed x2 this shift. CO2 reading inaccurate due to trach humidifier with oxygen thus pt routinely checked nasally. ranged from 16 to 25 max value. RR 12 to 19 from both monitor and visual count. stevenson intact and draining. PEG TF continuous with flush. pt sleeping during hand off. report given to dayshift nurse. PICC site intact. no BM this shift.
--- NOTE | 2020-05-10 07:40 | NUR ---
Sitting up in bed with eyes open. Patient does not talk when asked questions. Does raise hands and follows directions. Has trach with oxygen at 9L/TTP. Right upper lobe coarse, left upper lobe clear, lower lones diminished bilaterally. Peg tube insertion site without redness/swelling/drainage. Peg tube continuous feeding infusing with out difficulty. Mid abd incision with power intact, no redness/swelling/discharge. Cox to dependent drainage draining clear yellow urine. Buttocks reddened. SCD's on. Morphine CAMERA ENGINEER accessible for patient to use. Patient shakes head when asked if he needed anything further.
--- NOTE | 2020-05-10 11:54 | NUR ---
prayed for patient while standing outside his door.
--- NOTE | 2020-05-10 16:25 | NUR ---
ANTOINE faxed updates to Usman at [facility].
[2020-05-10 17:30] LABS: HEMATOCRIT 23.6 % (42.0-52.0); HEMOGLOBIN 7.4 g/dl (13.5-18.0)
--- NOTE | 2020-05-10 17:35 | NUR ---
Lying in bed with eyes closed. Respirations even and unlabored. Oxygen at 9L/TTP. No signs or symptoms of discomfort noted at this time. PROGRAM CONTROL ANALYST button accessible to the patient.
--- NOTE | 2020-05-10 21:00 | NUR ---
PT RESTING IN BED WITH HOB ELEVATED PER ORDER. NPO. SEE SHIFT ASSESSMENT FOR FURTHER INFO.
--- NOTE | 2020-05-10 23:58 | NUR ---
PT ANXIOUS. HOB ELEVATED. NONVERBAL. FRESH ICE/WATER FOR MOUTH SWABS. TRACH WITH O2 PER HEATED HUMIDIFIED O2 33% AT 9L. TRACH WITH OCCASIOANL LIGHT CREAMY THIN SECRETIONS POST RT TX. PT PUSHING BUTTON FOR RADIOLOGY PRACTITIONER ASSISTANT MS. UNABLE TO PROVIDE PAIN LEVEL- LIFT ONE HAND. PEG TUBE SITE WITH LIGHT SEROUS DRAINAGE SMALL AMT. AREA CLEANED PLACED [id number] GAUZE. CALL LIGHT SECURED TO BLANKET ON PTS ABD AND RADIOLOGY PRACTITIONER ASSISTANT BUTTON SECURED TO GOWN WITH SAFETY PIN. PT KEPT LOSING THEM. SEE SHIFT ASSESSMENT-COMPLETED.
--- NOTE | 2020-05-11 02:21 | NUR ---
PT RESTING AT THIS TIME. NO RESP DISTRESS. ALL FLUIDS INFUSING ORDERED W. DIFFICULTY. F/C DRAINING WELL.
[2020-05-11 03:00] VITALS: BP 148/77; PULSE 101; TEMP 98.9
--- NOTE | 2020-05-11 04:30 | NUR ---
ASSISTED PT TO SITTING ON SIDE OF BED. PT VERY WEAK. USING HEEL GOUGER NEEDED. BACK SWEATY DRSG'S LOOSENED. CHANGED MEPILEX ON LOWER MID BACK- APPROX 2.5CM CIRCULAR REDDISH ABRASION LIKE WOUND. NO DRG. NEW BANDAID TO OLD EPIDURAL SITE. PT ABLE TO WASH FACE WITH WET CLOTH. ASSISTED PT WITH SET UP TO BRUSH HIS OWN TEETH. USE YAUNKER TO SPIT. PUT LOTION ON HIS BACK. NOTED OLD SPINAL SURG & HARDWARE PROTRUDING UNDER SKIN OF SCAR TO CERVICAL AREA. ASSISTED PT BACK TO LAYING DOWN. BED ALARM SET. CALL LIGHT IN PLACE. HEEL GOUGER BUTTON PINNED TO CHEST.
[2020-05-11 06:04] LABS: BASO % 0.5 % (0.0-2.0); EOS # 0.5 (0.0-0.7); EOS % 7.7 % (0-4.0); GRAN # 4.3 (1.4-6.5); GRAN % 74.7 % (42.2-75.2); LYMPH # 0.6 (1.2-3.4); LYMPH % 9.5 % (20.0-51.0); MEAN CELL VOLUME 116 fl (80.0-100.0); MEAN CORPUSCULAR HGB CONC 31 g/dl (33.0-37.0); MEAN PLATELET VOLUME 10.5 fl (7.4-10.4); MONO # 0.4 (0.1-0.6); MONO % 7.1 % (1.7-9.3); PLATELET COUNT 275 K/mm3 (130-400)
[2020-05-11 06:12] LABS: CALCIUM 8.7 mg/dL (8.4-10.2); CREATININE, serum 1.38 (0.66-1.25); POTASSIUM 4.7 mmol/L (3.4-5.0)
[2020-05-11 06:24] LABS: HEMATOCRIT 24.4 % (42.0-52.0); HEMOGLOBIN 7.5 g/dl (13.5-18.0); MEAN CORPUSCULAR HEMOGLOBIN 36 pg (27.0-31.0)
--- NOTE | 2020-05-11 07:19 | NUR ---
no secretions via trach this am, sp02 98% via TC. NO DISTRESS. 8LPM AT 33% FIO2 VIA trach collar.
[2020-05-11 08:24] VITALS: BP 117/57; PULSE 93; TEMP 98.5
--- NOTE | 2020-05-11 08:30 | NUR ---
PATIENT TUBE FEED PLACED ON HOLD PRIOR TO AM MEDICATION ADMINISTRATION. PATIENT SHAKES HIS HEAD NO WHEN ASKED IF HE WAS IN PAIN.
--- NOTE | 2020-05-11 09:00 | NUR ---
PATIENT CALLED OUT. PATIENT SUCTIONED AT THIS TIME. MAINFRAME SYSTEMS PROGRAMMER BUTTON PRESSED BY NURSE PER PATIENT REQUEST.
--- NOTE | 2020-05-11 10:05 | NUR ---
Usman, at [facility], reports that they are unable to accept the patient due to his medical complexities.
--- NOTE | 2020-05-11 11:20 | NUR ---
PATIENT HOLDING HIS ABDOMEN IN PAIN. FACIAL GRIMACING NOTED. PATIENT SHOOK HEAD YES WHEN ASKED IF HE WANTED THE TYPING OFFICE WORKER BUTTON PUSHED. PATIENT REPOSITIONED IN BED. THICK MUCOUS AROUND TRACH SITE NOTED. PATIENT SUCTIONED PER REQUEST. PATIENT TOLERATED WELL. AREA AROUND TRACH CLEANED. PATIENT DENIED ANY OTHER NEEDS AT THIS TIME.
--- NOTE | 2020-05-11 11:58 | NUR ---
ANTOINE staffed with the hospitalist. The hospitalist states the patient will probably be here for a couple more days. A big concern is pain control and they will try and get his meds down to PO. ANTOINE contacted and updated Jenny at [facility]. Jenny reports that she will send out this information to her team again and let ANTOINE know.
[2020-05-11 12:55] VITALS: BP 145/72; PULSE 98; TEMP 98.8
--- NOTE | 2020-05-11 15:46 | NUR ---
ANTOINE contacted and updated the patient's , Basil. Basil asked for an update from the hospitalist/PA. ANTOINE informed the patient's PA. ANTOINE received a phone call from Gunjan at [facility]. Gunjan reports that the patient has home health services through them.
[2020-05-11 16:34] VITALS: BP 140/65; PULSE 95; TEMP 98.2
--- NOTE | 2020-05-11 16:37 | NUR ---
Jenny, at [facility], reports that they would not be able to accept the patient at this time, due to his increased oxygen needs. She states that they can reconsider him when his oxygen flow is lower. SW faxed a referral to [facility]. Awaiting screen.
--- NOTE | 2020-05-11 19:26 | NUR ---
BEDSIDE REPORT GIVEN TO MARIANA SOTOMAYOR. PATIENTS TRACH SUCTIONED NEEDED DURING SHIFT. EMERGENCY REGISTRAR CHANGED PRIOR TO SHIFT CHANGE. NEW TUBE FEEDING HUNG. PATIENT RESTING IN BED. CALL LIGHT AND EMERGENCY REGISTRAR BUTTONS IN REACH. PATIENT DENIES ANY OTHER NEEDS AT THIS TIME.
[2020-05-11 19:46] VITALS: BP 147/73; PULSE 89; TEMP 98
--- NOTE | 2020-05-11 20:30 | NUR ---
Pt. sitting up in bed at this time. Pt. is A&OX3, assessment complete. PICC to lt. upper arm patent, IV fluids infusing per orders. PEG tube to rt. upper abd. Continuous tube feeding running per orders at this time. Midline abd. incision well approximated, power intact. Trach suction provided at this time per pt. request. Able to remove yellow thick secretions. Pt. tolerated well. Pt. pushed AUTOMATIC FABRIC CUTTER button at this time for pain. Pt. denies further needs. Call light within reach.
[2020-05-11 23:31] VITALS: BP 122/67; PULSE 93; TEMP 98.9
[2020-05-12 03:57] VITALS: BP 137/80; PULSE 102; TEMP 98.3
[2020-05-12 07:25] VITALS: BP 112/58; PULSE 91; TEMP 98.5
--- NOTE | 2020-05-12 07:31 | NUR ---
Sitting up in bed watching TV. Alert and oriented x4. Minimal pain at this time, has EDGE BANDING MACHINE OFFBEARER if needs to use. Oxygen at 7L/TTP. Denies shortness of air, occasional cough. Lung sounds CTA in all arellano. Mid abd incision with power all intact, no redness/discharge/swelling noted. Peg tube with continuous feeding at 54mL/hr. Cox to dependent drainage draining clear yellow urine. Skin abrasions on back with bandaids and Mepilex CDI. Patient denies needs or concerns.
--- NOTE | 2020-05-12 08:39 | NUR ---
PATIENT IS ON 33% FIO2 FOR HUMIDIFICATION ONLY, WHICH EQUIVALENT TO 3-4 LPM NASAL NC.
[2020-05-12 09:27] LABS: BASO % 0.7 % (0.0-2.0); EOS # 0.4 (0.0-0.7); EOS % 7.4 % (0-4.0); GRAN # 4.3 (1.4-6.5); GRAN % 74.3 % (42.2-75.2); LYMPH # 0.6 (1.2-3.4); LYMPH % 9.4 % (20.0-51.0); MEAN CELL VOLUME 115 fl (80.0-100.0); MEAN CORPUSCULAR HGB CONC 31 g/dl (33.0-37.0); MEAN PLATELET VOLUME 10.1 fl (7.4-10.4); MONO # 0.5 (0.1-0.6); MONO % 7.7 % (1.7-9.3); PLATELET COUNT 252 K/mm3 (130-400); RED BLOOD COUNT 2.08 M/mm3 (4.20-5.60); REDCELL DISTRIBUTION WIDTH-CV 13.1 % (11.5-14.5)
[2020-05-12 09:28] LABS: HEMOGLOBIN 7.5 g/dl (13.5-18.0); MEAN CORPUSCULAR HEMOGLOBIN 36 pg (27.0-31.0)
[2020-05-12 09:32] LABS: CALCIUM 8.8 mg/dL (8.4-10.2); CREATININE, serum 1.36 (0.66-1.25); POTASSIUM 4.4 mmol/L (3.4-5.0)
--- NOTE | 2020-05-12 09:55 | NUR ---
Morphine MEDICAL CHARGE ENTRY SPECIALIST discontinued as prescribed. Patient instructed to let staff know if he is having pain as we have pain medication we can administer in his peg tube. Patient shakes head in agreeance. KIRILL Tenorio, performs bed bath and cath care. Tip of penis noted to be a little red and irriated. Patient denies pain. Dr. Brumfield updated and in to see patient.
--- NOTE | 2020-05-12 10:44 | NUR ---
Sitting up in bed with eyes open. Patient requests to have adapter piece placed back on trach so that he can talk and he does not want to take it off. Reapplied piece. Attempt to contact the patient per his request, message left for her to call back. Discussed with the patient process for removing stevenson and dc'd stevenson at this time as ordered. Removed 8ml from balloon, pulled catheter, all intact. Patient tolerates without difficulty. Applied creams to tip of penis as prescribed. IV fluids dc'd as ordered. Patient denies additional needs at this time.
--- NOTE | 2020-05-12 11:25 | NUR ---
ANTOINE updated the hospitalist about [facility]. The hospitalist reports that the patient does not require the 8 liters of oxygen, the oxygen is what humidifys and hydrates the patient's trach. The patient is being taken off fluids today and switched to oral meds. ANTOINE updated Day at [facility]. Day reports that she will update her team. ANTOINE contacted and updated Aries at [facility]. Aries reports that he will continue to follow the patient over the weekend, but that he would be a good fit for SNF or SB.
[2020-05-12 11:47] VITALS: BP 118/73; PULSE 96; TEMP 97.3
--- NOTE | 2020-05-12 14:00 | NUR ---
ANTOINE consulted [facility] Director, Thi. Thi reports that they cannot accept admissions at this time, but can re-evaluate the patient on Friday. ANTOINE contacted and updated the patient's , Basil.
--- NOTE | 2020-05-12 15:00 | NUR ---
Patient requests to sit up in chair. Patient assisted around bed with assist of two and use of walker to recliner. Patient gait slow and steady. Tube feeding supplies changed and new tubing and 2cal feeding intiated at 54ml/hr as previous. Patient denies additional needs or concerns at this time.
[2020-05-12 16:55] VITALS: BP 143/73; PULSE 98; TEMP 97.5
--- NOTE | 2020-05-12 17:04 | NUR ---
Patient sitting up in bed watching TV. Denies pain. RT in room to clean trach per patient request. Patient denies additional needs at this time.
--- NOTE | 2020-05-12 19:05 | NUR ---
MAIDA Bui, went to patient room and patient was up at side of bed with walker trying to walk around bed. Patient was educated that he needs to use call light and ask for help when he needs out of bed. Patient assisted to BSC. Voids and has BM. Assisted from BSC to chair. Patient then decides he wants to go to bed. Assisted into comfortable position in bed. SCDs applied. Patient again instructed on use of call light and bed alarm turned on. Patient denies additional needs.
[2020-05-12 19:21] VITALS: BP 134/73; PULSE 99; TEMP 97.7
--- NOTE | 2020-05-12 19:33 | NUR ---
RECEIVED CHANGE OF SHIFT REPORT FROM DAY SHIFT NURSE.
[2020-05-12 23:56] VITALS: BP 144/71; PULSE 65; TEMP 97.6
[2020-05-13 04:13] VITALS: BP 131/73; PULSE 91; TEMP 98.3
[2020-05-13 06:31] LABS: BASO % 0.5 % (0.0-2.0); EOS # 0.5 (0.0-0.7); GRAN # 4.5 (1.4-6.5); GRAN % 72.7 % (42.2-75.2); LYMPH # 0.7 (1.2-3.4); LYMPH % 10.4 % (20.0-51.0); MEAN CELL VOLUME 115 fl (80.0-100.0); MEAN CORPUSCULAR HGB CONC 32 g/dl (33.0-37.0); MEAN PLATELET VOLUME 10.1 fl (7.4-10.4); MONO # 0.5 (0.1-0.6); MONO % 7.8 % (1.7-9.3); PLATELET COUNT 263 K/mm3 (130-400); RED BLOOD COUNT 2.06 M/mm3 (4.20-5.60)
[2020-05-13 06:40] LABS: HEMATOCRIT 23.7 % (42.0-52.0); HEMOGLOBIN 7.5 g/dl (13.5-18.0); MEAN CORPUSCULAR HEMOGLOBIN 36 pg (27.0-31.0)
[2020-05-13 06:46] LABS: ALBUMIN 2.9 gm/dL (3.5-5.0); BILIRUBIN,TOTAL 0.3 mg/dL (0.0-1.0); CALCIUM 8.8 mg/dL (8.4-10.2); CREATININE, serum 1.35 (0.66-1.25); POTASSIUM 4.3 mmol/L (3.4-5.0); TOTAL PROTEIN 6.5 gm/dL (6.4-8.2)
--- NOTE | 2020-05-13 07:51 | NUR ---
CHANGE OF SHIFT REPORT GIVE TN TO DAY SHIFT NURSEMACIE.
[2020-05-13 07:52] VITALS: BP 140/103; BP 190/154; PULSE 95; TEMP 98
[2020-05-13 11:26] VITALS: BP 142/94; PULSE 96; TEMP 98
[2020-05-13 15:38] VITALS: BP 130/73; PULSE 93; TEMP 97.6
[2020-05-13 19:06] VITALS: BP 131/68; PULSE 94; TEMP 98
--- NOTE | 2020-05-13 19:18 | NUR ---
PATIENT DENIED PAIN THROUGHOUT MY SHIFT. SEE SHIFT ASSESSMENT. TUBE FEEDS AND MEDICATIONS GIVEN PER ORDERS. BEDSIDE REPORT GIVEN TO MARIANA GU.
--- NOTE | 2020-05-13 19:23 | NUR ---
RECEIVED CHANGE OF SHIFT REPORT FROM DAY SHIFT NURSE.
[2020-05-14 00:07] VITALS: BP 135/87; PULSE 97; TEMP 98
--- NOTE | 2020-05-14 04:21 | NUR ---
PATIENT REPORTED FEELING COLD, GIVEN WARM BLANKET
[2020-05-14 04:36] VITALS: BP 149/75; PULSE 99; TEMP 97.3
[2020-05-14 07:06] VITALS: BP 151/58; PULSE 91; TEMP 97.4
--- NOTE | 2020-05-14 07:18 | NUR ---
CHANGE OF SHIFT REPORT GIVEN TO DAY SHIFT NURSEMACIE.
[2020-05-14 08:15] LABS: MEAN CELL VOLUME 114 fl (80.0-100.0); MEAN CORPUSCULAR HGB CONC 31 g/dl (33.0-37.0); MEAN PLATELET VOLUME 10.8 fl (7.4-10.4); PLATELET COUNT 289 K/mm3 (130-400); RED BLOOD COUNT 2.05 M/mm3 (4.20-5.60); REDCELL DISTRIBUTION WIDTH-CV 12.9 % (11.5-14.5)
[2020-05-14 08:25] LABS: CALCIUM 8.9 mg/dL (8.4-10.2); CREATININE, serum 1.37 (0.66-1.25); POTASSIUM 3.8 mmol/L (3.4-5.0)
[2020-05-14 08:33] LABS: HEMATOCRIT 23.4 % (42.0-52.0); HEMOGLOBIN 7.3 g/dl (13.5-18.0); MEAN CORPUSCULAR HEMOGLOBIN 36 pg (27.0-31.0)
[2020-05-14 11:43] VITALS: BP 138/86; PULSE 92; TEMP 98.1
[2020-05-14 16:45] VITALS: BP 152/75; PULSE 94; TEMP 97.8
--- NOTE | 2020-05-14 19:06 | NUR ---
RECEIVED CHANGE OF SHIFT REPORT FROM DAY SHIFT NURSE.
[2020-05-14 19:32] VITALS: BP 153/68; PULSE 95; TEMP 97.6
--- NOTE | 2020-05-14 19:45 | NUR ---
PATIENT UP WITH GAIT BELT FOR BSC TRANSFER FOR OUT OF BED ACTIVITY PRN, VOID/PASSES LOOSE BM PER BSC. OBSERVED GAIT SLIGHTLY UNSTEADY, MIN TO MOD ASST FROM STAFF WITH TRANSFERS. DENIES CHEST PAIN, OBSERVED COUGHING WITH PATIENT PERFORMING INDEPENDENT ORAL CARE (SWISHING/SPIT ICE WATER) PER PATIENT REQUEST. PATIENT DENIES PROBLEMS WITH ICE WATER AND PREFERS TO CONTINUE USING ICE WATER FOR INDEPENDENT ORAL CARE. PATIENT YAUNKER SUCTIONS SELF PRN AND STAFF PARTIAL ASSIST WITH YAUNKER SUCTION OF EXPECTORATED TRACH SECRETIONS. DENIES NEED FOR DEEP RT SUCTIONING AT THIS TIME.
[2020-05-15 00:56] VITALS: BP 145/68; PULSE 89; TEMP 98.5
[2020-05-15 03:32] VITALS: BP 154/88; PULSE 97; TEMP 97.5
--- NOTE | 2020-05-15 06:52 | NUR ---
patient has few secretions, suggest DC Mucomist. stephen schneider.
[2020-05-15 07:13] LABS: ALBUMIN 3.1 gm/dL (3.5-5.0); BILIRUBIN,TOTAL 0.3 mg/dL (0.0-1.0); CALCIUM 8.9 mg/dL (8.4-10.2); CREATININE, serum 1.22 (0.66-1.25); POTASSIUM 3.9 mmol/L (3.4-5.0); TOTAL PROTEIN 6.7 gm/dL (6.4-8.2)
--- NOTE | 2020-05-15 07:15 | NUR ---
CHANGE OF SHIFT REPORT GIVEN TO DAY SHIFT NURSEPARAMJIT.
[2020-05-15 07:20] LABS: PRE ALBUMIN 20.2 mg/dL (17.6-36.0)
[2020-05-15 08:00] VITALS: BP 150/73; PULSE 87; TEMP 97.8
[2020-05-15] MEDS ORDERED: SENEXON-S 50-81 EACH PO (08:09)
[2020-05-15] MEDS ORDERED: LEVEMIR100 U/ML SQ (08:10)
[2020-05-15] MEDS ORDERED: IPRATROPIUM BROM3 M1 IH (08:12)
[2020-05-15] MEDS ORDERED: ALBUTEROL1.25 MG/3 IH (08:12)
[2020-05-15] MEDS ORDERED: NOVLOG SQ (08:17)
--- NOTE | 2020-05-15 08:26 | NUR ---
Lying in bed watching TV. Alert and oriented x4. Denies pain. Mid abd incision with power intact, no redness/swelling/discharge. Peg tube with continuous feeding at 54mL/hr, site without redness/swelling/discharge. Patient has bandaids and mepilex to back where epidural and tape was and when tape was remvoed it peeled back some of patient's skin. Patient has swelling in hands, says this is due to chemo. Patient says that he is hoping to go to [facility] [place] swing bed today. Explain that we will need to see what the provider says and that [facility] [place] has open bed. Denies additional needs.
--- NOTE | 2020-05-15 08:28 | NUR ---
PATIENT WITH TRACH IN PLACE, ON ROOM SPO2 IS 93%. CONTINUES TO BE ON HEATED HUMIDITY AT 33% OXYGEN. NATE LOZANO
[2020-05-15] MEDS ORDERED: MUCOMYST 20200 MG/M1 IH (08:49)
[2020-05-15] MEDS ORDERED: AUGMENTIN 400100 ML PEG (08:50)
--- NOTE | 2020-05-15 11:47 | NUR ---
During rounds senior account clerk stood outside patients room and prayed for them.
[2020-05-15 11:54] VITALS: BP 148/68; PULSE 86; TEMP 97.3
--- NOTE | 2020-05-15 14:23 | NUR ---
Report called to MARIANA Recio, at [place].
[2020-05-15 14:37] VITALS: BP 148/68; PULSE 86; TEMP 97.3
--- NOTE | 2020-05-15 14:39 | NUR ---
Scraper Operator collaborated with Jenny at [facility] who advised they can accept patient today. Accepting Physician is Elli Reyes (ph#[phone]) and ANTOINE provided contact information to Hospitalist. ANTOINE provided report # ([phone]) to RN, Vera. ANTOINE collaborated with patient's , Basil who is in agreement with discharge to [facility], however wants her to return home as soon as he can. Basil will sweet pickled fruit maker patient at 1430 and will bring a tank of oxygen for patient transport. Basil advised she has also packed a bag with patient's trach supplies. ANTOINE faxed discharge orders to Jenny at [facility]. ANTOINE met with patient to provide update on discharge today. ANTOINE contacted rogelio Chris [facility] to notify him of patient discharge. No additional needs at this time.
--- NOTE | 2020-05-15 15:20 | NUR ---
Patient here to hop picker patient. Patient assisted out to POV with all personal belongings, supplies, and kangaroo pump.
== END 2020-05-15 15:20 | disposition swing bed (61) | DRG 853 ==
LOC: COL.ER 11:02 → ICU 14:35 → SURG 05-08 12:48
PROVIDERS: Emergency Medicine; Physician Assistant; Student in an Organized Health Care Education/Training Program; Surgery; ADMIT Hospitalist
PROC: 0D9L0ZZ Drainage of Transverse Colon, Open Approach (ICD-10-PCS; principal; 2020-05-06 15:45)
DX: A41.9 Sepsis, unspecified organism (principal); J69.0 Pneumonitis due to inhalation of food and vomit; J18.9 Pneumonia, unspecified organism; K55.9 Vascular disorder of intestine, unspecified; N17.9 Acute kidney failure, unspecified; E87.2 Acidosis; E87.1 Hypo-osmolality and hyponatremia; G40.909 Epilepsy, unspecified, not intractable, without status epilepticus; R65.20 Severe sepsis without septic shock; Z20.828 Contact with and (suspected) exposure to other viral communicable diseases; K21.9 Gastro-esophageal reflux disease without esophagitis; E03.9 Hypothyroidism, unspecified; N20.0 Calculus of kidney; C10.9 Malignant neoplasm of oropharynx, unspecified; E11.65 Type 2 diabetes mellitus with hyperglycemia; D53.9 Nutritional anemia, unspecified; Z90.49 Acquired absence of other specified parts of digestive tract; Z79.84 Long term (current) use of oral hypoglycemic drugs; Z93.0 Tracheostomy status; Z87.891 Personal history of nicotine dependence; Z93.1 Gastrostomy status
CPT/HCPCS: 99223-AI; 99231-AI; 99232-AI; 99233-AI; 99239; C9113; J1815; J2270; J2370; J2405; J2543; J2704; J3010; J3370; J7030; J7040; J7050

== ENCOUNTER 2020-06-04 09:09 | Emergency (ER) | payer MEDICARE, OTHER ==
[~2020-06-04] VITALS: Ht 170.2 cm; Wt 81.8 kg
[~2020-06-04 09:09] MED LIST changes: +ALBUTEROL1.25 MG/3 IH; +AUGMENTIN 400100 ML PEG; +IPRATROPIUM BROM3 M1 IH; +LEVEMIR100 U/ML SQ; +MUCOMYST 20200 MG/M1 IH; +NOVLOG SQ; +SENEXON-S 50-81 EACH PO
[2020-06-04 09:18] VITALS: TEMP 98.5
[2020-06-04 10:18] LABS: BASO # 0.1 (0.0-0.2); BASO % 0.6 % (0.0-2.0); EOS # 0.4 (0.0-0.7); EOS % 3.4 % (0-4.0); GRAN # 9.5 (1.4-6.5); GRAN % 80.3 % (42.2-75.2); LYMPH # 0.7 (1.2-3.4); MEAN CELL VOLUME 107 fl (80.0-100.0); MEAN CORPUSCULAR HGB CONC 33 g/dl (33.0-37.0); MEAN PLATELET VOLUME 10.2 fl (7.4-10.4); MONO # 1.1 (0.1-0.6); MONO % 8.9 % (1.7-9.3); PLATELET COUNT 311 K/mm3 (130-400); RED BLOOD COUNT 2.79 M/mm3 (4.20-5.60); REDCELL DISTRIBUTION WIDTH-CV 12.9 % (11.5-14.5)
[2020-06-04 10:32] LABS: BILIRUBIN,TOTAL 0.3 mg/dL (0.0-1.0); CALCIUM 9.3 mg/dL (8.4-10.2); CREATININE, serum 1.21 (0.66-1.25); HEMATOCRIT 29.8 % (42.0-52.0); HEMOGLOBIN 9.7 g/dl (13.5-18.0); MEAN CORPUSCULAR HEMOGLOBIN 35 pg (27.0-31.0); POTASSIUM 4.6 mmol/L (3.4-5.0); TOTAL PROTEIN 7.4 gm/dL (6.4-8.2)
[2020-06-04] MEDS ORDERED: PREDNISONE10 MG PO (12:18)
[2020-06-04 12:33] VITALS: BP 143/98; PULSE 108
[2020-06-06] MEDS ORDERED: MONODOX100 PO (16:34)
== END 2020-06-04 12:35 | disposition home or self-care (01) ==
LOC: COL.ER 09:09
PROVIDERS: Family Medicine
DX: J95.03 Malfunction of tracheostomy stoma (principal); Z85.21 Personal history of malignant neoplasm of larynx; Z85.818 Personal history of malignant neoplasm of other sites of lip, oral cavity, and pharynx; Z90.49 Acquired absence of other specified parts of digestive tract; Z87.891 Personal history of nicotine dependence; Z79.4 Long term (current) use of insulin
CPT/HCPCS: J1100; Q9967

== ENCOUNTER 2020-06-16 14:05 | Outpatient (RCR) | payer MEDICARE, OTHER ==
[~2020-06-16] VITALS: Ht 170.2 cm; Wt 83.6 kg
[~2020-06-16 14:05] MED LIST changes: +BACTRIM DS 8001 TAB PO; +MONODOX100 PO; +PREDNISONE10 MG PO
[2020-06-16 15:30] LABS: MEAN CELL VOLUME 106 fl (80.0-100.0); MEAN CORPUSCULAR HGB CONC 33 g/dl (33.0-37.0); MEAN PLATELET VOLUME 9.3 fl (7.4-10.4); PLATELET COUNT 280 K/mm3 (130-400); RED BLOOD COUNT 2.81 M/mm3 (4.20-5.60); REDCELL DISTRIBUTION WIDTH-CV 13.1 % (11.5-14.5)
[2020-06-16 15:41] LABS: ALBUMIN 3.8 gm/dL (3.5-5.0); BILIRUBIN,TOTAL 0.2 mg/dL (0.0-1.0); CALCIUM 8.8 mg/dL (8.4-10.2); CREATININE, serum 1.48 (0.66-1.25); POTASSIUM 5.4 mmol/L (3.4-5.0); TOTAL PROTEIN 7.1 gm/dL (6.4-8.2)
[2020-06-16 15:52] LABS: HEMATOCRIT 29.9 % (42.0-52.0); HEMOGLOBIN 9.8 g/dl (13.5-18.0); MEAN CORPUSCULAR HEMOGLOBIN 35 pg (27.0-31.0)
[2020-06-16 16:33] LABS: EOSINOPHIL 10 % (0-4); LYMPHOCYTE 10 % (20.0-51.0); NEUTROPHILS 70 % (42.0-75.2)
[2020-06-16 16:35] LABS: HYPOCHROMIA 1+; PLATELET ESTIMATE NORMAL (NORMAL)
[2020-06-16 20:51] VITALS: BP 96/63; PULSE 75; TEMP 98.3
== END 2020-06-16 20:55 | disposition home or self-care (01) ==
LOC: EUO 14:05
PROVIDERS: Internal Medicine Medical Oncology
DX: C01 Malignant neoplasm of base of tongue (principal); C10.2 Malignant neoplasm of lateral wall of oropharynx; C77.0 Secondary and unspecified malignant neoplasm of lymph nodes of head, face and neck
CPT/HCPCS: J2997

== ENCOUNTER 2020-06-19 14:03 | Emergency (ER) | payer MEDICARE, OTHER ==
[~2020-06-19] VITALS: Ht 180.3 cm; Wt 83.6 kg
[2020-06-19 14:14] VITALS: TEMP 98.8
[2020-06-19 15:32] LABS: BASO % 0.5 % (0.0-2.0); EOS # 0.4 (0.0-0.7); GRAN # 4.5 (1.4-6.5); GRAN % 73.6 % (42.2-75.2); LYMPH # 0.6 (1.2-3.4); LYMPH % 9.7 % (20.0-51.0); MEAN CELL VOLUME 104 fl (80.0-100.0); MEAN CORPUSCULAR HGB CONC 33 g/dl (33.0-37.0); MEAN PLATELET VOLUME 9.5 fl (7.4-10.4); MONO # 0.6 (0.1-0.6); MONO % 8.9 % (1.7-9.3); PLATELET COUNT 243 K/mm3 (130-400); RED BLOOD COUNT 2.76 M/mm3 (4.20-5.60); REDCELL DISTRIBUTION WIDTH-CV 12.8 % (11.5-14.5)
[2020-06-19 15:38] LABS: HEMATOCRIT 28.8 % (42.0-52.0); HEMOGLOBIN 9.5 g/dl (13.5-18.0); MEAN CORPUSCULAR HEMOGLOBIN 34 pg (27.0-31.0)
[2020-06-19 15:41] LABS: PROTHROMBIN TIME 11.2 SECONDS (9.7-12.8)
[2020-06-19 15:43] LABS: PARTIAL THROMBOPLASTIN TIME 26.8 SECONDS (26.0-37.0)
[2020-06-19 15:46] LABS: ALBUMIN 3.7 gm/dL (3.5-5.0); BILIRUBIN,TOTAL 0.2 mg/dL (0.0-1.0); C-REACTIVE PROTEIN 4.8 mg/dL (0.0-0.9); CALCIUM 9.1 mg/dL (8.4-10.2); CREATININE, serum 1.38 (0.66-1.25); POTASSIUM 5.3 mmol/L (3.4-5.0); TOTAL PROTEIN 7.1 gm/dL (6.4-8.2)
[2020-06-19] MEDS ORDERED: CIPRO 500M500 MG/5 M PO (17:25)
[2020-06-19 18:11] VITALS: BP 129/69; PULSE 87
== END 2020-06-19 18:13 | disposition home or self-care (01) ==
LOC: COL.ER 14:03
PROVIDERS: Emergency Medicine
DX: R04.2 Hemoptysis (principal); I10 Essential (primary) hypertension; K21.9 Gastro-esophageal reflux disease without esophagitis; Z85.818 Personal history of malignant neoplasm of other sites of lip, oral cavity, and pharynx; Z79.4 Long term (current) use of insulin; Z79.52 Long term (current) use of systemic steroids
CPT/HCPCS: J7030

== ENCOUNTER 2020-06-22 12:16 | Observation (INO) | payer MEDICARE, OTHER ==
[2020-06-22] VITALS (10 sets, daily range): BP systolic 100–161; BP diastolic 55–85; PULSE 71–98; TEMP 97.8–99.1
[~2020-06-22] VITALS: Ht 180.3 cm; Wt 83.1 kg
[~2020-06-22 12:16] MED LIST changes: +CIPRO 500M500 MG/5 M PO
--- NOTE | 2020-06-22 18:00 | NUR ---
Patient arrived to floor around 171. He is alert. He is having thick, bloody secretions and can not clear them very well. Attempted to suction his trach but could not get much out due how thick it is. RT came to see patient and is going to get him on a humidifier to help with secretions. Denies nausea. Stated having pain to neck, Morphine given. No other changes at this time. We placed an air mattress to bed. Patient is resting comfortably at this time. No other changes at this time. Call light within reach.
[2020-06-22 19:25] LABS: BASO % 0.5 % (0.0-2.0); EOS # 0.1 (0.0-0.7); EOS % 1.1 % (0-4.0); GRAN # 5.7 (1.4-6.5); GRAN % 88.4 % (42.2-75.2); LYMPH # 0.4 (1.2-3.4); LYMPH % 5.8 % (20.0-51.0); MEAN CELL VOLUME 104 fl (80.0-100.0); MEAN CORPUSCULAR HGB CONC 33 g/dl (33.0-37.0); MEAN PLATELET VOLUME 9.7 fl (7.4-10.4); MONO # 0.2 (0.1-0.6); MONO % 3.7 % (1.7-9.3); PLATELET COUNT 250 K/mm3 (130-400); REDCELL DISTRIBUTION WIDTH-CV 12.7 % (11.5-14.5)
[2020-06-22 19:28] LABS: HEMOGLOBIN 9.3 g/dl (13.5-18.0); MEAN CORPUSCULAR HEMOGLOBIN 34 pg (27.0-31.0)
--- NOTE | 2020-06-22 19:45 | NUR ---
Pain medication given. Peg tube flushes well with no issues. No residual. Patient seems to be resting comfortably at this time. No other changes at this time. caustic cresylate shift superintendent RN will be resuming care at this time.
--- NOTE | 2020-06-22 20:42 | NUR ---
Resting in bed. Assessment complete. Lungs clear. Heart sounds normal. bowels active x4. Pusles present throughout. No edema noted. PICC to left upper flushed with blood return. Patient has trach in place with reddish drainage present. RT to assess. PEG in place-no drainage. No residual at time of medication adminstration. Reports pain has decreased in intensity. /10. Denies other needs at this time. Call light in reach. Attempted to contact patient for admission assessment, medication review, and to discuss patient PEG tube feedings/schedule. No answer. Left voicemail requesting to call back. Will complete admission information upon return phone call.
--- NOTE | 2020-06-22 21:45 | NUR ---
Patient coughing with bright red blood coming from around and inside trach. Respiratory contacted suctioning done. Contacted Dr. Apodaca for orders. Dr. Apodaca will come see patient.
--- NOTE | 2020-06-22 22:46 | NUR ---
Patient taken to ED for evaluation with Dr. Apodaca. Patient going to OR. Consent signed. Left voicemail to update .
--- NOTE | 2020-06-22 22:47 | NUR ---
PEG tube feedings are 4.5 cans of two glory-HN over 13 to 14 hours from 1900 to 0930 [facility] Informed Dr. Apodaca no orders for future feedings. To be addressed.
[2020-06-23] VITALS (9 sets, daily range): BP systolic 107–141; BP diastolic 52–82; PULSE 70–90; TEMP 97.3–98.5
--- NOTE | 2020-06-23 00:35 | NUR ---
Returned from OR. Trach site has reddish drainage present.
--- NOTE | 2020-06-23 01:06 | NUR ---
Given PRN morphine for 7/10 neck pain. Denies other needs. Call light in reach.
--- NOTE | 2020-06-23 01:51 | NUR ---
Patient reported continued pain and nausea. Given PRN zofran and norco. Clarified with Dr. Apodaca another dose of zofran okay-recently given in OR at 2330. Okay to give to patient. Trach site continues to bleed. Gauze changed twice. Dr. Apodaca aware. Patient airway no compromised at this time. Will closely monitor.
--- NOTE | 2020-06-23 06:23 | NUR ---
Patient was returned to OR last evening for increased bloody drainage from inside and around trach. Patient had moderate drainage throughout night after surgery. [place] and morphine given for pain. x1 dose of zofran required. Resting in bed this AM.
--- NOTE | 2020-06-23 07:12 | NUR ---
Report given to MARIANA Kohler
--- NOTE | 2020-06-23 10:30 | NUR ---
Initial visit; Patient thanked Heel Attacher for looking in on him and offering God's blessings.
--- NOTE | 2020-06-23 11:54 | NUR ---
ANTOINE attended clinical rounds. Palliative Care Nurse, Hanny, was also present. The hospitalist discussed the patient's code status. The patient wants to be a full code and states that he wants to continue fighting and treatment. The patient's oncologist, Dr. Fajardo, plans to come up to the hospital to visit with the patient and discuss his prognosis. Hanny contacted the patient's son, Manny (ph#[phone]) and him and the patient's and considering coming up here to be present for the meeting with Dr. Fajardo. The patient lives in [place] with his , Basil (ph#[phone]), and son, Manny. His PCP is Dr. Cristiano Urias and his DPOA-HC is in EMR and it designates Basil and Manny. He receives home health services from [facility] for his trach care. ANTOINE contacted and updated David at [facility]. David reports that they are good to resume services for the patient upon discharge. ANTOINE to fax updates to [facility] and will continue to follow.
--- NOTE | 2020-06-23 14:19 | NUR ---
I met with ipt this morning and talked about goals of care. He writes that he is still fighting and not ready to stop. He has spoken with Dr Fajardo today and is currently declining radiation therapy although may reconsider if bleeding should occur again. 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 Earlier attempts by other care providers have not been recieved well when hospice care has been discussed. Currently pt is not bleeding much with pink tinged sputum expelled through trach. They do have [facility] services in the home and his is his primary caregiver. I am told that Dr Apodaca plans to discharge him back home today. His is coming at 2pm I am told to review trach care. Pt remains a full code and is not open to hospice at this time.
--- NOTE | 2020-06-23 14:40 | NUR ---
spoke driss Magaña in cardiouplmonary and informed her patient was being discharged so if she needed to se him, she declined and stated she didn't think he would need to be seen
--- NOTE | 2020-06-23 15:55 | NUR ---
Patient has discharge orders. rounded this afternoon & he called patient and plan of care reviewed. Supplies gathered per for patient to take home since he has a new trach size & cuffed-obtained from the OR ([facility]). is already well educated on trach cares per and he discussed with her the change on the phone. had rounded earlier in the shift and Patient has no interest in radiation at this time. Patient has follow up appt set up for next week. Home med list with last dose taken reviewed with , discharge instructions discussed, it was rushed because patient was anxious to leave. He was wheeled out with all belongings & supplies Patient has had productive cough, using tissues to collect cputum and throw in trash. He has been Npo. Communication difficult at time, he is using paper & pen to assist with communication. He refuses tube feeding set up by Tami, reports he will start at 10pm. ( was made aware) Patient has voided using urinal, weak on his feet. Picc to Janet-flushes well he had Lr infusing per orders. Hanny Forte was also involved in cares today. Hospialist was consulted and assisted with med changes.
--- NOTE | 2020-06-23 16:10 | NUR ---
Dr. Fajardo came and visited the patient. The patient is still wanting to pursue aggressive treatment. Dr. Apodaca notified SW that the patient is going to need a smaller trach cuff and he wrote a script for this. The patient receives his trach supplies from [facility]. ANTOINE contacted and faxed the script to [facility]. Sánchez, at [facility], reports that they do not have any of the smaller trach cuffs the patient needs in stock, but that they can order them and them get to the patient when in. ANTOINE updated the patient's RN. The patient's RN provided him with one trach cuff of his size to return home with. ANTOINE contacted and updated the patient's , Basil. Basil is agreement with the plan to continue aggressive treatment and for the patient to return back home with her and [facility]. Basil reports that she will be fine with the two trach cuffs and that she just needs the second one, for when she cleans his other one. The patient discharged back home with him family today, 06/23, with home health services for penitentiary through [facility]. ANTOINE notified and faxed d/c orders to Juan at [facility]. No additional needs at this time.
== END 2020-06-23 16:00 | disposition home health service (06) ==
LOC: SDCO 12:16 → SURG 16:02
PROVIDERS: ADMIT Otolaryngology
DX: R04.2 Hemoptysis (principal); K21.9 Gastro-esophageal reflux disease without esophagitis; C14.0 Malignant neoplasm of pharynx, unspecified; G47.33 Obstructive sleep apnea (adult) (pediatric); G89.29 Other chronic pain; M19.90 Unspecified osteoarthritis, unspecified site; E11.9 Type 2 diabetes mellitus without complications; E03.9 Hypothyroidism, unspecified; D64.9 Anemia, unspecified; Z87.891 Personal history of nicotine dependence
CPT/HCPCS: 99222; A7521; G0378; J2270; J2405; J2704; J3010; J7120

== ENCOUNTER 2020-07-03 18:35 | Inpatient (IN) | payer MEDICARE, OTHER ==
[~2020-07-03] VITALS: Ht 180.3 cm; Wt 84.1 kg
[~2020-07-03 18:35] MED LIST changes: +DILANTIN 100MG100 MG PEG; -DILANTIN O100 MG/4 M
[2020-07-03 20:00] LABS: BASO % 0.4 % (0.0-2.0); EOS # 0.1 (0.0-0.7); EOS % 0.9 % (0-4.0); GRAN # 5.5 (1.4-6.5); HEMOGLOBIN 10.6 g/dl (13.5-18.0); LYMPH # 0.7 (1.2-3.4); LYMPH % 10.3 % (20.0-51.0); MEAN CELL VOLUME 103 fl (80.0-100.0); MEAN CORPUSCULAR HEMOGLOBIN 34 pg (27.0-31.0); MEAN CORPUSCULAR HGB CONC 33 g/dl (33.0-37.0); MEAN PLATELET VOLUME 9.3 fl (7.4-10.4); MONO # 0.4 (0.1-0.6); MONO % 6.1 % (1.7-9.3); PLATELET COUNT 314 K/mm3 (130-400); RED BLOOD COUNT 3.09 M/mm3 (4.20-5.60); REDCELL DISTRIBUTION WIDTH-CV 12.9 % (11.5-14.5)
[2020-07-03 20:04] LABS: HEMATOCRIT 31.7 % (42.0-52.0)
[2020-07-03 20:11] LABS: ALANINE AMINOTRANSFERASE 51 U/L (4-49); ALBUMIN 4.2 gm/dL (3.5-5.0); ALKALINE PHOSPHATASE 123 U/L (50-136); ANION GAP 15 mmol/L (7-16); AST,SGOT 33 U/L (15-37); BILIRUBIN,TOTAL 0.3 mg/dL (0.0-1.0); BLOOD UREA NITROGEN 51 mg/dL (9-20); CALCIUM 9.3 mg/dL (8.4-10.2); CARBON DIOXIDE 24 mmol/L (22-30); CHLORIDE 100 mmol/L (98-107); CREATININE, serum 1.39 (0.66-1.25); GLUCOSE 170 mg/dL (74-106); LIPASE 118 U/L (23-300); SODIUM 138 mmol/L (137-145); TOTAL PROTEIN 7.9 gm/dL (6.4-8.2)
[2020-07-03 20:35] LABS: TROPONIN-I < 0.012 ng/mL (0.000-0.035)
[2020-07-03 20:44] LABS: INR 1.2 (0.8-3.0); PROTHROMBIN TIME 13.2 SECONDS (9.7-12.8)
[2020-07-03 21:26] LABS: COLLECTION METHOD CLEAN CATCH
[2020-07-03 21:36] LABS: PH 5 (5-8); SQUAMOUS EPITHELIAL 0-2 /hpf; URINE APPEARANCE Clear; URINE BACTERIA None Seen /hpf; URINE BILIRUBIN Negative (NEGATIVE); URINE BLOOD Negative (NEGATIVE); URINE COLOR Yellow; URINE GLUCOSE 1+ (NEGATIVE); URINE KETONE Negative (NEGATIVE); URINE LEUKOCYTE ESTERASE Negative (NEGATIVE); URINE NITRATE Negative (NEGATIVE); URINE PROTEIN(semi-quant) 1+ (NEGATIVE); URINE RBC 0-2 /hpf; URINE UROBILINOGEN Negative (NEGATIVE)
--- NOTE | 2020-07-04 03:33 | NUR ---
Vancomycin Initial Dosing Pharmacy Note Ordering provider: Alessia Barth Indication/duration: Sepsis/Ileus Relevant comorbidities: DM, hx CA w/ trach & peg tube LABS: WBC = 6.7, SCr = 1.39 Recommendation: Will draw troughs and follow levels. Loading dose: 1.75 grams Maintenance dose: 1 gram every 12 hours Trough goal: 15-20 ug/mL
[2020-07-04 07:13] LABS: BASO % 0.6 % (0.0-2.0); EOS # 0.2 (0.0-0.7); EOS % 4.2 % (0-4.0); GRAN # 3.5 (1.4-6.5); GRAN % 73.3 % (42.2-75.2); LYMPH # 0.7 (1.2-3.4); LYMPH % 14.4 % (20.0-51.0); MEAN CELL VOLUME 104 fl (80.0-100.0); MEAN CORPUSCULAR HGB CONC 33 g/dl (33.0-37.0); MEAN PLATELET VOLUME 9.4 fl (7.4-10.4); MONO # 0.4 (0.1-0.6); MONO % 7.3 % (1.7-9.3); PLATELET COUNT 237 K/mm3 (130-400); RED BLOOD COUNT 2.82 M/mm3 (4.20-5.60)
[2020-07-04 07:18] LABS: HEMATOCRIT 29.2 % (42.0-52.0); HEMOGLOBIN 9.7 g/dl (13.5-18.0); MEAN CORPUSCULAR HEMOGLOBIN 34 pg (27.0-31.0)
[2020-07-04 07:22] LABS: ALBUMIN 3.5 gm/dL (3.5-5.0); BILIRUBIN,TOTAL 0.2 mg/dL (0.0-1.0); CALCIUM 8.3 mg/dL (8.4-10.2); CREATININE, serum 1.16 (0.66-1.25); MAGNESIUM 2.1 mg/dL (1.6-2.3); POTASSIUM 3.6 mmol/L (3.4-5.0); TOTAL PROTEIN 6.7 gm/dL (6.4-8.2)
[2020-07-04 16:14] VITALS: BP 113/58; PULSE 71; TEMP 98.7
[2020-07-04 17:02] VITALS: BP 119/70; PULSE 80; TEMP 98.6
--- NOTE | 2020-07-04 19:35 | NUR ---
Patient has done well since up from ER. Alert and able to answer yes or no questions. Suctioned trach x2, patient having thick yellow sputum. Mouth swabs provided to patient. Denies further needs at this time. Reported off to security shift supervisor.
[2020-07-04 19:57] VITALS: BP 111/61; PULSE 85; TEMP 97.8
--- NOTE | 2020-07-04 20:50 | NUR ---
Resting in bed. Assessment complete. Lungs diminished throughout. Heart sounds normal. Bowels active x4. Pulses present throughout. Bilateral lower extremity edema +1. PICC to left upper without complications. Patient has trach in place. Respiratory therapy provided trach care at this time. Peg tube- no residual at this time. Given colace. Patient reports not eating since last Friday. Will follow up with this. Denies pain. Denies needs at this time. Call light in reach.
--- NOTE | 2020-07-05 00:17 | NUR ---
Requested suctioning and trach care. Respiratory in room for trach care
[2020-07-05 00:26] VITALS: BP 124/67; PULSE 87; TEMP 98.7
--- NOTE | 2020-07-05 02:10 | NUR ---
Up to restroom and returned to bed. Suctioned. Denies other needs. Call light in reach.
[2020-07-05 03:25] VITALS: BP 130/65; PULSE 79; TEMP 97.6
--- NOTE | 2020-07-05 06:03 | NUR ---
Patient had x2 bowel movements during night. Required suctioning several times throughout night with thick yellow secretions. Otherwise uneventful night. Resting in bed this AM. Call light in reach.
--- NOTE | 2020-07-05 07:14 | NUR ---
Report given to MARIANA Barney
[2020-07-05 07:18] VITALS: BP 105/78; PULSE 80; TEMP 98.4
[2020-07-05 08:32] LABS: MEAN CELL VOLUME 107 fl (80.0-100.0); MEAN CORPUSCULAR HGB CONC 32 g/dl (33.0-37.0); MEAN PLATELET VOLUME 9.2 fl (7.4-10.4); PLATELET COUNT 168 K/mm3 (130-400); REDCELL DISTRIBUTION WIDTH-CV 13.2 % (11.5-14.5)
[2020-07-05 08:34] LABS: HEMATOCRIT 26.7 % (42.0-52.0); HEMOGLOBIN 8.5 g/dl (13.5-18.0); MEAN CORPUSCULAR HEMOGLOBIN 34 pg (27.0-31.0)
[2020-07-05 08:45] LABS: ALBUMIN 3.2 gm/dL (3.5-5.0); BILIRUBIN,TOTAL 0.2 mg/dL (0.0-1.0); CALCIUM 8.3 mg/dL (8.4-10.2); CREATININE, serum 1.32 (0.66-1.25); POTASSIUM 3.2 mmol/L (3.4-5.0); TOTAL PROTEIN 6.4 gm/dL (6.4-8.2)
--- NOTE | 2020-07-05 11:00 | NUR ---
Patient alert and oriented, answers questions appropriately. See assessment. Abdomen soft, non tender, non distended. Bowel sounds active x4 quads. +Flatus. +Bowel movement. No c/o at this time.
[2020-07-05 11:48] VITALS: BP 111/55; PULSE 90; TEMP 98.3
--- NOTE | 2020-07-05 12:33 | NUR ---
Chaplain ochoa for patient while standing outside the door.
[2020-07-05 16:00] VITALS: BP 126/67; PULSE 98; TEMP 98.5
[2020-07-05 20:03] VITALS: BP 129/59; PULSE 82; TEMP 98.3
--- NOTE | 2020-07-05 20:28 | NUR ---
Resting in bed. Assessment complete. Bases bilaterally diminished otherwise clear. Heart sounds normal. Bowels active x4. Pulses present throughout. BLE edema +1. PICC left upper infusing without complications. Denies pain. Denies needs at this time. Respiratory therapist in room for trach care. Call light in reach.
[2020-07-06] VITALS (7 sets, daily range): BP systolic 116–149; BP diastolic 58–70; PULSE 76–91; TEMP 98.2–99.6
--- NOTE | 2020-07-06 05:12 | NUR ---
Patient required suctioning throughout night. Up to restroom this AM. Denies other needs. Tolerated peg tube feedings. Call light in reach.
--- NOTE | 2020-07-06 05:28 | NUR ---
Patient reports ABD pain after returning from restroom. Did have BM. Refused norco. Requesting IV morphine. Provided to patient at this time. Will monitor.
[2020-07-06 06:41] LABS: BASO % 0.5 % (0.0-2.0); EOS # 0.3 (0.0-0.7); EOS % 7.7 % (0-4.0); GRAN # 2.7 (1.4-6.5); GRAN % 72.2 % (42.2-75.2); LYMPH # 0.4 (1.2-3.4); LYMPH % 11.1 % (20.0-51.0); MEAN CELL VOLUME 106 fl (80.0-100.0); MEAN CORPUSCULAR HGB CONC 34 g/dl (33.0-37.0); MEAN PLATELET VOLUME 9.5 fl (7.4-10.4); MONO # 0.3 (0.1-0.6); MONO % 8.2 % (1.7-9.3); PLATELET COUNT 173 K/mm3 (130-400); RED BLOOD COUNT 2.28 M/mm3 (4.20-5.60); REDCELL DISTRIBUTION WIDTH-CV 13.1 % (11.5-14.5)
--- NOTE | 2020-07-06 06:42 | NUR ---
Report given to MARIANA García
[2020-07-06 06:50] LABS: ALANINE AMINOTRANSFERASE 33 U/L (4-49); ALKALINE PHOSPHATASE 102 U/L (50-136); ANION GAP 9 mmol/L (7-16); AST,SGOT 25 U/L (15-37); BILIRUBIN,TOTAL < 0.1 mg/dL (0.0-1.0); BLOOD UREA NITROGEN 19 mg/dL (9-20); CALCIUM 8.4 mg/dL (8.4-10.2); CARBON DIOXIDE 25 mmol/L (22-30); CHLORIDE 106 mmol/L (98-107); GLUCOSE 152 mg/dL (74-106); SODIUM 140 mmol/L (137-145); TOTAL PROTEIN 6.1 gm/dL (6.4-8.2)
[2020-07-06 06:51] LABS: HEMOGLOBIN 8.1 g/dl (13.5-18.0); MEAN CORPUSCULAR HEMOGLOBIN 36 pg (27.0-31.0)
[2020-07-06 06:52] LABS: HEMATOCRIT 24.2 % (42.0-52.0)
[2020-07-06 06:55] LABS: POTASSIUM 2.9 mmol/L (3.4-5.0)
[2020-07-06 07:13] LABS: MAGNESIUM 1.9 mg/dL (1.6-2.3); PHOSPHOROUS 4.7 mg/dL (2.5-4.5)
--- NOTE | 2020-07-06 08:00 | NUR ---
Patient in bed resting. Alert and oriented x 3. Assessment complete. Denies pain at this time. Suctioned patient at this time. Trach with yellow sputum present. Peg tube with tube feeding infusing. Potassium protocol started this AM. Picc line to ISABELLA without complications. Denies further needs at this time
--- NOTE | 2020-07-06 08:23 | NUR ---
(Late Entry) On 07/05/20, Frontend Engineer met with patient to discuss discharge planning. Patient lives in [place] with his and sees Dr. Urias for primary care. Patient has services from [facility] and plans to return home with his upon discharge. SW contacted patient's , Basil (ph#[phone]) and left a message. Patient has Advance Directives in the EMR which designate Basil and his son, Manny. ANTOINE contacted Gunjan at [facility] and faxed updates. Gunjan states they can continue services for patient upon discharge.
--- NOTE | 2020-07-06 15:03 | NUR ---
Technical Account Manager contacted patient's , Basil to review discharge plan. Basil plans to have patient return home with her support and Gretchen LOCKWOOD. Basil was hoping to speak with Hospitalist about patient. ANTOINE contacted AMILCAR Recio to request she call Basil. ANTOINE will continue to follow.
[2020-07-06 17:53] LABS: HEMATOCRIT 24.2 % (42.0-52.0); HEMOGLOBIN 7.9 g/dl (13.5-18.0)
--- NOTE | 2020-07-06 19:03 | NUR ---
Patient doing well throughout the day. Tube feeding currently at 45ml/hr via kangaroo pump. Patient tolerating without difficulties, residual at 5ml. SCDs to BLE. Patient up to recliner this afternoon, encouraged patien to increase activity. Potassium infusing via pump to ISABELLA picc line. Patient suctioned approximately every hour. Denies needs at this time. Reported off to wire roller.
--- NOTE | 2020-07-06 19:15 | NUR ---
DURING BEDSIDE SHIFT REPORT NOTED SMALL LOOSE BROWN STOOL WITH SCANT AMT OF BLOOD. WILL HOLD TONIGHTS COLACE AND MONITOR FOR FURTHER BLEEDING.
--- NOTE | 2020-07-06 19:30 | NUR ---
PT RESTING WITH HOB ELEVATED. MOD AMT THICK/THIN SPUTUM NOTED FROM TRACH. REQUIRES FREQ SUCTIONING. POTASSIUM CONTINUES INFUSING PER PROTOCOL. PT DENIES PAIN. PEG TUBE SITE WITHOUT IRRITATION. DRAIN DRSG TO PEG SITE CLEAN. PT HAS DEPRESSED AFFECT. DIFFICULTY WITH COMMUNICATION D/T TRACH. WRITES NOTES OCCASIONALLY BUT GETS FRUSTRATED. CALL LIGHT IN REACH.
--- NOTE | 2020-07-06 22:55 | NUR ---
PT C/O LT NECK PAIN- MOUTHED "CANCER". SEE MAR FOR NORCO GIVEN.
--- NOTE | 2020-07-06 22:56 | NUR ---
ASSISTED TO BR. ALITTLE UNSTEADY. VOIDED AND HAD TINY LOOSE BM. HELD 2100 COLACE EARLIER. STAGE 2 WOUND TO LT INNER BUTTOCKS- SM AMT BLOODY DRG. APPEARS LIKE RUPTURED BLISTER. CLEANED WELL. APPLIED REPLICARE. PT ABLE TO COUGH UP SPUTUM EXCEPT VERY SMALL AMT. AIRWAY IS CLEAR.
--- NOTE | 2020-07-07 | NUR ---
PT REQUEST FREQUENT TRACH SUCTIONING. ENC PT TO TRY TO CLEAR SPUTUM W/ COUGH. AIRWAY CLEAR. NO RESP DISTRESS. ABLE TO CLEAR PER SELF-STILL HAVING MODERATE AMT OF SPUTUM.
--- NOTE | 2020-07-07 00:30 | NUR ---
CHANGED OUT SCOPOLAMINE PATCH TO LT POSTERIOR LEFT EAR. LAST ONE FELL OFF.
--- NOTE | 2020-07-07 02:00 | NUR ---
PT AWAKE. COUGHING. NOTED SOME LIGHT PINK SPUTUM. SUCTION JUST AT ENTRANCE OF TRACH TO REMOVE EXCESS SPUTUM.
--- NOTE | 2020-07-07 02:08 | NUR ---
NOTIFIED RT PT HAD LIGHT PINK SPUTUM.
[2020-07-07 03:28] VITALS: BP 141/66; PULSE 83; TEMP 98.7
[2020-07-07 06:24] LABS: BASO % 0.2 % (0.0-2.0); EOS # 0.2 (0.0-0.7); EOS % 5.2 % (0-4.0); GRAN # 3.1 (1.4-6.5); GRAN % 74.7 % (42.2-75.2); LYMPH # 0.5 (1.2-3.4); LYMPH % 10.7 % (20.0-51.0); MEAN CELL VOLUME 105 fl (80.0-100.0); MEAN CORPUSCULAR HGB CONC 33 g/dl (33.0-37.0); MEAN PLATELET VOLUME 9.7 fl (7.4-10.4); MONO # 0.4 (0.1-0.6); PLATELET COUNT 173 K/mm3 (130-400); RED BLOOD COUNT 2.34 M/mm3 (4.20-5.60); REDCELL DISTRIBUTION WIDTH-CV 13.2 % (11.5-14.5)
[2020-07-07 06:34] LABS: HEMATOCRIT 24.5 % (42.0-52.0); MEAN CORPUSCULAR HEMOGLOBIN 34 pg (27.0-31.0)
[2020-07-07 06:37] LABS: CALCIUM 8.5 mg/dL (8.4-10.2); CREATININE, serum 0.93 (0.66-1.25)
[2020-07-07 07:07] VITALS: BP 134/60; PULSE 84; TEMP 98.9
--- NOTE | 2020-07-07 08:00 | NUR ---
Patient in bed resting. Alert and oriented. PEG tube with continuous feed infusing at 55ml/hrs. PICC line to ISABELLA without complications. Trach requiring frequent suctioning with thick sputum. SCDs to BLE. Denies needs at this time.
[2020-07-07 12:00] VITALS: BP 143/60; PULSE 82; TEMP 99.4
--- NOTE | 2020-07-07 13:17 | NUR ---
Notified Rosalia FITZGERALD, patient having pink tinged sputum and T of 99.4. No new orders at this time.
--- NOTE | 2020-07-07 15:40 | NUR ---
Discharge education provided to patient. Educated on when to call providers and follow up appointments. Educated on medication changes. Contacted patients spouse, mayela, with regards to discharge. All questions answered. Denies additional needs at this time. Patient out with surgical staff. Patient suctioned as needed today, continues having copious amount of sputum. Patient had BM prior to discharge. No further needs.
--- NOTE | 2020-07-07 15:41 | NUR ---
Patient to discharge home today with Home Health services. ANTOINE contacted Gunjan at [facility] and faxed discharge orders. No additonal needs at this time.
== END 2020-07-07 15:40 | disposition home health service (06) | DRG 389 ==
LOC: COL.ER 18:35 → SURG 07-04 14:15
PROVIDERS: Emergency Medicine; Physician Assistant; Surgery; ADMIT Student in an Organized Health Care Education/Training Program
PROC: 02HV33Z Insertion of Infusion Device into Superior Vena Cava, Percutaneous Approach (ICD-10-PCS; principal; 2020-07-04)
DX: K56.7 Ileus, unspecified (principal); N17.9 Acute kidney failure, unspecified; R65.10 Systemic inflammatory response syndrome (SIRS) of non-infectious origin without acute organ dysfunction; J98.11 Atelectasis; G40.909 Epilepsy, unspecified, not intractable, without status epilepticus; K21.9 Gastro-esophageal reflux disease without esophagitis; K59.00 Constipation, unspecified; E03.9 Hypothyroidism, unspecified; N20.0 Calculus of kidney; C10.9 Malignant neoplasm of oropharynx, unspecified; D53.9 Nutritional anemia, unspecified; I12.9 Hypertensive chronic kidney disease with stage 1 through stage 4 chronic kidney disease, or unspecified chronic kidney disease; N18.9 Chronic kidney disease, unspecified; E11.22 Type 2 diabetes mellitus with diabetic chronic kidney disease; E87.6 Hypokalemia; Z93.1 Gastrostomy status; Z93.0 Tracheostomy status; Z90.49 Acquired absence of other specified parts of digestive tract; Z79.84 Long term (current) use of oral hypoglycemic drugs; Z87.891 Personal history of nicotine dependence
CPT/HCPCS: 99222-AI; 99232-AI; 99239; C1751; C1892; C9113; J1815; J2270; J2405; J2543; J2560; J3370; J3480; J7030; J7050; Q2009

== ENCOUNTER 2020-08-12 09:20 | Inpatient (IN) | payer MEDICARE, OTHER ==
[~2020-08-12] VITALS: Ht 180.3 cm; Wt 81.8 kg
[2020-08-12 11:07] LABS: MEAN CELL VOLUME 106 fl (80.0-100.0); MEAN CORPUSCULAR HGB CONC 32 g/dl (33.0-37.0); PLATELET COUNT 189 K/mm3 (130-400); RED BLOOD COUNT 2.49 M/mm3 (4.20-5.60); REDCELL DISTRIBUTION WIDTH-CV 15.9 % (11.5-14.5)
[2020-08-12 11:11] LABS: HEMATOCRIT 26.4 % (42.0-52.0); HEMOGLOBIN 8.4 g/dl (13.5-18.0); MEAN CORPUSCULAR HEMOGLOBIN 34 pg (27.0-31.0)
[2020-08-12 11:22] LABS: ALBUMIN 3.7 gm/dL (3.5-5.0); BILIRUBIN,TOTAL 0.4 mg/dL (0.0-1.0); CALCIUM 9.2 mg/dL (8.4-10.2); CREATININE, serum 1.43 (0.66-1.25); POTASSIUM 4.6 mmol/L (3.4-5.0); TOTAL PROTEIN 7.5 gm/dL (6.4-8.2)
[2020-08-12 11:46] LABS: BAND 14 % (0-10); BASOPHIL 1 % (0-2); EOSINOPHIL 7 % (0-4); LYMPHOCYTE 16 % (20.0-51.0); NEUTROPHILS 39 % (42.0-75.2)
[2020-08-12 11:48] LABS: ANISOCYTOSIS 1+; HYPOCHROMIA 1+; PLATELET ESTIMATE NORMAL (NORMAL)
[2020-08-12 13:01] LABS: C-REACTIVE PROTEIN 38.6 mg/dL (0.0-0.9)
[2020-08-12 13:02] LABS: CLOSTRIDIUM DIFF A/B NEG; CLOSTRIDIUM DIFF A/B INTERP No C.diff present
[2020-08-12 13:34] LABS: COLLECTION METHOD CLEAN CATCH
[2020-08-12 14:16] LABS: MUCOUS Present /lpf; PH 6 (5-8); SQUAMOUS EPITHELIAL None Seen /hpf; URINE APPEARANCE Hazy; URINE BACTERIA None Seen /hpf; URINE BILIRUBIN Negative (NEGATIVE); URINE BLOOD Negative (NEGATIVE); URINE COLOR Yellow; URINE GLUCOSE 2+ (NEGATIVE); URINE KETONE Negative (NEGATIVE); URINE LEUKOCYTE ESTERASE Negative (NEGATIVE); URINE NITRATE Negative (NEGATIVE); URINE PROTEIN(semi-quant) 1+ (NEGATIVE); URINE RBC 0-2 /hpf; URINE UROBILINOGEN Negative (NEGATIVE)
[2020-08-12 15:20] VITALS: BP 122/67; PULSE 116; TEMP 99.6
[2020-08-12 15:22] VITALS: BP 122/67; PULSE 116; TEMP 99.6
[2020-08-12 15:40] VITALS: BP 122/67; PULSE 116; TEMP 99.6
--- NOTE | 2020-08-12 17:18 | NUR ---
PT HAS HAD INCONTINENT BM IN PULL UP. CHANGED PT AND PLACED MEPILEX ON DIME SIZE HEALING PRESSURE WOUND ON RIGH BUTTOCK.
--- NOTE | 2020-08-12 20:51 | NUR ---
Meggan RN notifed patient pulse 126 on telemetry. Will notify Emi FITZGERALD
[2020-08-12 20:54] VITALS: BP 135/73; PULSE 118; TEMP 99.3
--- NOTE | 2020-08-12 21:14 | NUR ---
Patient 130-134 on telemetry. Meggan RN notified.
--- NOTE | 2020-08-12 22:00 | NUR ---
Patient incontinent of several loose stools. Patient stands to get cleaned up and changed. Patient frequently requesting for his trach to be suctioned. Suctioning trach when patient sounds wet but encouraging him to cough up the secretions.
[2020-08-12 23:26] VITALS: BP 129/59; PULSE 109; TEMP 98.7
--- NOTE | 2020-08-12 23:53 | NUR ---
PRN pain medication administered per request.
[2020-08-13] VITALS (7 sets, daily range): BP systolic 81–143; BP diastolic 48–75; PULSE 97–110; TEMP 97.8–98.6
--- NOTE | 2020-08-13 00:01 | NUR ---
CALL FROM [facility] REPORTING POSITIVE AEROBIC BLOOD CULTURES FOR GRAM NEGATIVE RODS. PATIENT ADMITTED THIS HOSPITAL RM 342. NURIA TO SURGICAL CHARGE NOTIFIED OF RESULTS.
--- NOTE | 2020-08-13 00:06 | NUR ---
REPORTED BLOOD CULTURE RESULTS TO RIGOBERTO FITZGERALD. GM NEGATIVE RODS IN AEROBIC BOTTLE, PER KIKO PEÑA IN THE EMERGENCY DEPT. NO NEW ORDERS.
--- NOTE | 2020-08-13 02:00 | NUR ---
Patient requesting to be suctioned frequently. Patient frustrated when this nurse explains we cannot continue to suction so frequently. Patient requests to speak to his doctor. AMILCAR Middlteon, in to see patient.
--- NOTE | 2020-08-13 03:01 | NUR ---
RT in for a breathing treatment. RT cleaned out patient's trach. Patient now sleeping with unlabored breathing.
--- NOTE | 2020-08-13 04:01 | NUR ---
Patient requested an air blow up matress. METER REPAIRER HELPER put one on his bed.
[2020-08-13 06:36] LABS: MEAN CELL VOLUME 104 fl (80.0-100.0); MEAN CORPUSCULAR HGB CONC 32 g/dl (33.0-37.0); MEAN PLATELET VOLUME 11.8 fl (7.4-10.4); PLATELET COUNT 198 K/mm3 (130-400); RED BLOOD COUNT 2.16 M/mm3 (4.20-5.60); REDCELL DISTRIBUTION WIDTH-CV 15.9 % (11.5-14.5)
[2020-08-13 06:50] LABS: ALBUMIN 3.1 gm/dL (3.5-5.0); BILIRUBIN,TOTAL 0.3 mg/dL (0.0-1.0); CALCIUM 8.4 mg/dL (8.4-10.2); CREATININE, serum 1.28 (0.66-1.25); MAGNESIUM 2.3 mg/dL (1.6-2.3); PHOSPHOROUS 4.1 mg/dL (2.5-4.5); TOTAL PROTEIN 6.4 gm/dL (6.4-8.2)
[2020-08-13 06:52] LABS: HEMATOCRIT 22.5 % (42.0-52.0); HEMOGLOBIN 7.2 g/dl (13.5-18.0); MEAN CORPUSCULAR HEMOGLOBIN 33 pg (27.0-31.0)
--- NOTE | 2020-08-13 07:55 | NUR ---
Patient sitting up in bed, coughing up sputum into the basin. Did not need nursing assistance. Alert, did not want to use speaking device. PICC ISABELLA, CDI, fluids infusing. VSS O2 sats WNL. Peg tube CDI. Air mattress on bed. Nurse instructed patient that cannot suction trach all the time, told that it can create more mucus and irritate the esophagus. Patient just stared at the nurse. Call light within reach
[2020-08-13 08:40] LABS: ANISOCYTOSIS 2+; BAND 8 % (0-10); EOSINOPHIL 6 % (0-4); LYMPHOCYTE 18 % (20.0-51.0); METAMYELOCYTE 14 % (0-0); MYELOCYTE 2 % (0-0); NEUTROPHILS 40 % (42.0-75.2); PLATELET ESTIMATE NORMAL (NORMAL)
--- NOTE | 2020-08-13 17:23 | NUR ---
Patient not comfort station attendant light as much today. Called throughout the shift wanting to be suctioned. Nursing staff discussing with the patient that nursing staff and RT cannot suction the trach everytime requested. Patient frustrated and verbalized an understanding as well. Patient had several episodes of loose stools, patient changed as needed. Patient reported pain in neck and pain medication given when requested. Alert. VSS. IV CDI, fluids infusing. Call light within reach. Door left open. Will continue to monitor
--- NOTE | 2020-08-14 01:17 | NUR ---
1999- ASSESSMENT COMPLETE. PT RATING PAIN 10/10 TO SCROTUM/ RECTUM. HAS BEEN HAVING MANY LOOSE STOOLS. SLIGHTLY RED, BARRIER CREAM PUT ON. PT GIVEN NORCO AT 0 PER PEG TUBE ALONG W PM MEDS. PT AT BEDSIDE. PT CONTINUES TO C/O PAIN, RIGOBERTO NOTIFED AND ORDER PLACED FOR DILUDID .025MG IV FOR BREAKTHROUGH. PT WAS GIVEN THAT AND CONT TO C/O PAIN AND STATES ITS NOT WORKING. PT INFORMED NEED TO GIVE IT TIME IT HAD ONLY BEEN 30 MIN. PT IS HARD TO UNDERSTAND HE HAS A TRACH BUT DOES A HAVE VOICE DEVICE THAT HE CAN USE. FEEDING STARTED PER ORDER AT 11PM TONIGHT. PEG SITE C/D/I. MEDS TO CRUSHED AND GIVEN PER GRAVITY. UP TO AMBULATE IN HALLS TONIGHT.
[2020-08-14 03:36] VITALS: BP 125/66; PULSE 100; TEMP 97.9
--- NOTE | 2020-08-14 06:15 | NUR ---
PT WAS UP MOST OF THE NIGHT. WAS MORE COMFORTABLE AFTER A FEW DOSES OF IV BREAKTHROUGH MED. TYPE AND SCREENED LAST NIGHT. OFTEN WILL CALL TO BE SUCTIONED. ENC TO COUGH AND GET PHLEM OUT. TOLERATING 2CAL FEEDING AT 15ML/HR AND 60ML FREE WATER Q 4. AM MEDS GIVEN. NEEDS MET.
[2020-08-14 06:23] LABS: MEAN CELL VOLUME 104 fl (80.0-100.0); MEAN CORPUSCULAR HGB CONC 32 g/dl (33.0-37.0); MEAN PLATELET VOLUME 11.4 fl (7.4-10.4); PLATELET COUNT 247 K/mm3 (130-400); RED BLOOD COUNT 2.09 M/mm3 (4.20-5.60); REDCELL DISTRIBUTION WIDTH-CV 15.7 % (11.5-14.5)
[2020-08-14 06:34] LABS: ALBUMIN 2.8 gm/dL (3.5-5.0); BILIRUBIN,TOTAL 0.2 mg/dL (0.0-1.0); CALCIUM 8.3 mg/dL (8.4-10.2); CREATININE, serum 1.47 (0.66-1.25); MAGNESIUM 2.2 mg/dL (1.6-2.3); PHOSPHOROUS 4.9 mg/dL (2.5-4.5); POTASSIUM 4.4 mmol/L (3.4-5.0); TOTAL PROTEIN 5.9 gm/dL (6.4-8.2)
[2020-08-14 06:36] LABS: HEMATOCRIT 21.7 % (42.0-52.0); MEAN CORPUSCULAR HEMOGLOBIN 33 pg (27.0-31.0)
[2020-08-14 06:41] LABS: PRE ALBUMIN 12.7 mg/dL (17.6-36.0)
[2020-08-14 07:13] VITALS: BP 128/67; PULSE 98; TEMP 99.2
--- NOTE | 2020-08-14 08:00 | NUR ---
PATIENT IS A&O BUT NOT ABLE TO TALK DUE TO TRACH PLACEMENT. CHANGED TRACH GAUZE, NOTED MOD AMOUNTS OF THICK, LIGHT-YELLOW COLORED PHLEGM. PATIENT GETTING SCHEDULED RT TREATMENTS AND PRN SUCTION. NPO. AM BS WAS 160. PEG TUBE INPLACE AND FLUSHED EASILY, NOTED ONLY 3CC OF RESIDULE. APPLIED NEW GAUZE TO PED TUBE SITE. TUBE FEEDING OFF PER ORDERS. PLAN TO INCREASE TUBE FEEDING RATE AND RESTART AT 11AM. NO C/O N/V. CRUSHED MEDS AND GIVE IN PED, PATIENT TOELRATED WELL. ABD IS SLIGHTLY DISTENDED, AND WITH HYPO BOWL SOUNDS. LEFT UPPER ARM PICC TO INT. VSS WITH TELE INPLACE. HEAD TO TOE ASSESSMENT COMPLETE. NOTED MEPALIX TO COCCYX. 1 ASSIST TO BATHROOM. GAIT STEADY. PT/OT CONSULTED. NO OTHER NEEDS AT THIS TIME. CALL LIGHT IN REACH.
[2020-08-14 10:18] LABS: BAND 18 % (0-10); EOSINOPHIL 1 % (0-4); LYMPHOCYTE 41 % (20.0-51.0); NEUTROPHILS 30 % (42.0-75.2)
--- NOTE | 2020-08-14 10:19 | NUR ---
Initial visit; Patient thanked Time Checker for coming in and helping. Time Checker wished him God's blessings.
[2020-08-14 10:20] LABS: TEAR DROP CELLS 1+
[2020-08-14 11:48] VITALS: BP 128/72; PULSE 102; TEMP 98.5
--- NOTE | 2020-08-14 15:30 | NUR ---
Shot Polisher And Inspector contacted patient's , Basil (ph#[phone]) to discuss discharge planning. Patient lives at home with his , Basil and has a trach and PEG tube. Patient's primary care physician is Dr. Urias and his preferred pharmacy [facility]. Basil advised patient has been experiencing weakness at home and utilizes a walker for ambulation. Basil states she has to provide patient with some assistance when he is feeling weak. Basil advised that patient receives assistance from [facility] and that they come in weekly to give patient a shower. Patient has Advance Directives in EMR which designate his , Basil and his son, Manny as DPOA-HC. Plan is for patient to return home upon discharge with continued Home Health services. ANTOINE contacted Gunjan at [facility] and faxed updates.
[2020-08-14 16:06] VITALS: BP 127/72; PULSE 96; TEMP 99.3
[2020-08-14 20:20] VITALS: BP 103/59; PULSE 92; TEMP 98.9
--- NOTE | 2020-08-14 21:36 | NUR ---
1999- PT SETTING UP IN BED. ASSESSMENT AND VITALS COMPLETE. PT RATES PAIN 9/10 TO JAW/NECK. NORCO GAVE FOR PAIN, WHEN REASSESS PAIN CONT TO BE 8/10. IV MED GIVEN. SUCTIONED PER PT REQ. ENC TO COUGH UP PHLEM WELL. NOT HERE TODAY DIDNT FEEL WELL. PT NEEDS MET.
[2020-08-15 00:39] VITALS: BP 134/69; PULSE 99; TEMP 98.5
--- NOTE | 2020-08-15 05:39 | NUR ---
PT RESTED WITHOUT INCIDENT TONIGHT. TUBE FEEDING 2 NURIA CONTINOUS. AM LABS DRAWN PER PICC. AM MEDS GIVEN PER PEG TUBE THIS AM. PT RESTING WITH EYES CLOSED, RESP EVEN AND UNLABORED.
[2020-08-15 06:09] VITALS: BP 131/62; PULSE 89; TEMP 98.2
[2020-08-15 07:36] LABS: CALCIUM 8.3 mg/dL (8.4-10.2); CREATININE, serum 1.39 (0.66-1.25); POTASSIUM 3.5 mmol/L (3.4-5.0)
[2020-08-15 07:36] LABS: MEAN CELL VOLUME 104 fl (80.0-100.0); MEAN CORPUSCULAR HGB CONC 32 g/dl (33.0-37.0); PLATELET COUNT 329 K/mm3 (130-400); RED BLOOD COUNT 2.07 M/mm3 (4.20-5.60); REDCELL DISTRIBUTION WIDTH-CV 15.6 % (11.5-14.5)
[2020-08-15 07:38] LABS: HEMATOCRIT 21.6 % (42.0-52.0); MEAN CORPUSCULAR HEMOGLOBIN 34 pg (27.0-31.0)
[2020-08-15 08:00] LABS: ANISOCYTOSIS 1+; BASOPHIL 1 % (0-2); EOSINOPHIL 2 % (0-4); HYPOCHROMIA 2+; LYMPHOCYTE 20 % (20.0-51.0); METAMYELOCYTE 2 % (0-0); MYELOCYTE 9 % (0-0); NEUTROPHILS 53 % (42.0-75.2); NUCLEATED RED BLOOD CELL 1 (0-6); PLATELET ESTIMATE NORMAL (NORMAL)
--- NOTE | 2020-08-15 08:00 | NUR ---
PATIENT IS A&O, NO COMPLAINTS OF PAIN AT THIS TIME. VSS, WITH TELE IN PLACE. PATIENT UP TO THE RESTROOM, WAS ABLE TO HAVE SOFT FORMED BM. PRESSURE SORE ASSESSED AND REDRESSED WITH MEPELIX. ABDOMEN IS STILL SLIGHTLY DISTENDED, SOFT WITH HYPOACTIVIE BOWEL SOUNDS. PATIENT HAS NO COMPLAINTS OF N/V AT THIS TIME. PEG FLUSHED AND FEEDING PAUSED, MEDS ADMINISTERED. TRACH SUCTIONED, GAUZED REPLACED. TRACH DISCHARGE IS THICK AND YELLOW IN COLOR WITH MODERATE AMOUNT. RT CALLED FOR TREATMENT, NURSING PROVIDED SUCTIONING AT BEDSIDE. LUNG SOUNDS ARE COURSE IN ALL LUNG CHARLES. PATIENT IS AT 97% ON RA. HEAD TO TOE ASSESSMENT WAS COMPLETE. UP IN BED TO COMFORT, BED AT LOWEST POSITION WITH ALARM ON AND CALL LIGHT WITHIN REACH.
[2020-08-15 08:56] VITALS: BP 131/79; PULSE 90; TEMP 97.7
--- NOTE | 2020-08-15 11:15 | NUR ---
PATIENT COMPLAINS OF NECK PAIN. GAVE PRN DILAUDID. RESTING IN CHAIR WITH CALL LIGHT IN REACH.
[2020-08-15 12:00] VITALS: BP 106/63; PULSE 94
[2020-08-15 16:00] VITALS: BP 156/63; PULSE 110; TEMP 98
[2020-08-15 19:28] VITALS: BP 122/56; PULSE 99; TEMP 99.2
--- NOTE | 2020-08-15 20:00 | NUR ---
Resting in bed. Assessment complete and charted. Reports 5/10 neck pain. Provided with PRN dilaudid. Trach secretions thick and yellow. suctioned as needed. PEG tube feeding in place. Tolerating well. Denies other needs at this time. Call light in reach.
[2020-08-16] VITALS (7 sets, daily range): BP systolic 116–140; BP diastolic 57–67; PULSE 85–97; TEMP 97.3–98.7
--- NOTE | 2020-08-16 02:35 | NUR ---
Resting in bed. Call light in reach.
--- NOTE | 2020-08-16 06:34 | NUR ---
Patient required dilaudid for pain control during night and PRN suctioning. Otherwise uneventful night. Resting in bed this AM. Call light in reach.
--- NOTE | 2020-08-16 07:10 | NUR ---
Report given to Vera Saenz RN
[2020-08-16 07:42] LABS: MEAN CELL VOLUME 105 fl (80.0-100.0); MEAN CORPUSCULAR HGB CONC 32 g/dl (33.0-37.0); PLATELET COUNT 418 K/mm3 (130-400); RED BLOOD COUNT 2.07 M/mm3 (4.20-5.60); REDCELL DISTRIBUTION WIDTH-CV 15.8 % (11.5-14.5)
[2020-08-16 07:54] LABS: HEMATOCRIT 21.7 % (42.0-52.0); MEAN CORPUSCULAR HEMOGLOBIN 34 pg (27.0-31.0)
[2020-08-16 08:06] LABS: CALCIUM 8.2 mg/dL (8.4-10.2); CREATININE, serum 1.29 (0.66-1.25); POTASSIUM 4.2 mmol/L (3.4-5.0)
--- NOTE | 2020-08-16 08:33 | NUR ---
Sitting up in bed with eyes open. Patient has trach so unable to speak, mouths and nods answers. Alert and oriented x4. Denies pain in neck or stomach at this time, provides a thumbs up and says it is doing good. PEG tube feeding not in place at this time, turned off from [id number]. Spoke with Devi, pharmacist, to clarify if Dilantin ER capsules can be opened to be given in peg tube. Devi says that we can open the capsules and continue to administer the medication this way. Check residual on peg tube, 2mL return of delgado drainage. Flush peg with 30mL water. Administer medications as prescribed. Flush with 100mL water. Patient denies needs at this time.
--- NOTE | 2020-08-16 11:27 | NUR ---
Patient sitting up in bed watching TV. When asked if having pain patient declines but wants trach suctioned. Suction provided at this time. Patient says he felt better. Tube feeding started at this time at 70mL/hr. Patient denies additional needs at this time.
--- NOTE | 2020-08-16 16:50 | NUR ---
Patient assisted into bathroom with standby x1 and use of walker. Gait slow and steady. Patient voids and has small loose BM. Assist in pericare. Patient returns to bed. Patient coughing up phlegm from trach and requests to be suctioned. Patient suctioned at this time. Denies additional needs.
--- NOTE | 2020-08-16 18:15 | NUR ---
Patient having indigestion and would like some medication. Explain that they gave him Protonix this morning and he has Zofran ordered for nausea. Patient shakes head to Zofran. Ask patient what he takes at home for indigestions and he mouths "medication" and smiles. Does not know name of medication taken at home. Speak with NICOLASA Broderick, and she places orders for Mylicon drops. Will administer as prescribed.
--- NOTE | 2020-08-16 18:25 | NUR ---
Contacted pharmacy to have Mylicon drops brought to floor. Michael says that he will verify order, see if the med is on hand, then have it brought to floor when it is available. Patient updated. Will unhook as scheduled from peg tube feeding.
--- NOTE | 2020-08-16 19:30 | NUR ---
RECEIVED CHANGE OF SHIFT REPORT FROM DAY SHIFT NURSE.
--- NOTE | 2020-08-16 20:00 | NUR ---
REQUIRES FREQUENT TRACH SUCTIONING. PEG CLAMPED AT THIS TIME. PICC LINE IN PLACE. REQUESTING MYLICON DROPS WHEN AVAILABLE FOR COMPLAINT OF INDIGESTION. DENIES PAIN OR SHORTNESS OF BREATH AT THIS TIME.
[2020-08-17 03:53] VITALS: BP 118/59; PULSE 87; TEMP 99.2
[2020-08-17 06:46] LABS: MEAN CELL VOLUME 106 fl (80.0-100.0); MEAN CORPUSCULAR HGB CONC 32 g/dl (33.0-37.0); MEAN PLATELET VOLUME 10.6 fl (7.4-10.4); PLATELET COUNT 486 K/mm3 (130-400); RED BLOOD COUNT 2.17 M/mm3 (4.20-5.60); REDCELL DISTRIBUTION WIDTH-CV 15.7 % (11.5-14.5)
[2020-08-17 06:47] LABS: HEMATOCRIT 22.9 % (42.0-52.0); HEMOGLOBIN 7.3 g/dl (13.5-18.0); MEAN CORPUSCULAR HEMOGLOBIN 34 pg (27.0-31.0)
[2020-08-17 06:58] LABS: CALCIUM 8.2 mg/dL (8.4-10.2); CREATININE, serum 1.12 (0.66-1.25); POTASSIUM 4.3 mmol/L (3.4-5.0)
--- NOTE | 2020-08-17 07:39 | NUR ---
CHANGE OF SHIFT REPORT GIVEN TO DAY SHIFT NURSE, GONZALEZ RN AND STUDENT.
--- NOTE | 2020-08-17 08:00 | NUR ---
PATIENT IS A&O BUT UNABLE TO SPEAK WITH TRACH. NOTED MOD AMOUNTS OF THICK, LIGHT YELLOW SECRETIONS, SUCTION PROVIDED. NOTED COARSE LUNG SOUNDS WITH CRACKLES IN BASES. PATIENT GETTING IV ABX INTO LEFT UPPER ARM PICC. PATTERN VAULT CLERK REPORTED PATIENT HAD A LOOSE STOOL THIS AM BUT IS CONTINENT AND WAS ABLE TO MAKE IT TO THE BATHROOM. PATIENT IS 1 ASSIST WITH WALKER. PT/OT CONSULTED. ABD IS ROUND, SOFT AND WITH HYPO BOWL SOUNDS. PEG TUBE PATENT WITH TUBE FEEDING INFUSING AT 70CC, LESS THAN 5CC RESIDUALS NOTED. PATIENT TOLERATING WELL. NO C/O N/V. BLOOD CULTURES WERE POSITIVE FOR A GUT BACTERIA, ENTEROBACTER CLOACAE. NOTED STAGE 1 COCCYX ULCER, SCABBED AND HEALING AND CURRENTLY HOWIE. NO C/O PAIN. VSS WITH TELE INPLACE. HEAD TO TOE ASSESSMENT COMPLETE. STUDENT NURSE WORKING WITH PATIENT TODAY, SEE NOTES. NO OTHER NEEDS AT THIS TIME. CALL LIGHT IN REACH.
--- NOTE | 2020-08-17 08:45 | NUR ---
HOSPITALIST TEAM ROUNDING. SEE ORDERS.
[2020-08-17] MEDS ORDERED: LEVASOLN PEG (08:47)
[2020-08-17] MEDS ORDERED: FLAGYL500 MG PEG (08:48)
[2020-08-17 09:11] VITALS: BP 133/58; PULSE 88; TEMP 98.7
--- NOTE | 2020-08-17 11:15 | NUR ---
AIVS AT BEDSIDE TO DO LEFT PICC LINE STERILE EXCHANGE.
--- NOTE | 2020-08-17 11:25 | NUR ---
AIVS PUT CLINICAL MOLECULAR GENETICIST LIGHT AND REPORTED SHE HAD A "STUCK PICC", CALLED FOR CXR.
--- NOTE | 2020-08-17 12:00 | NUR ---
TUBE FEEDING ON HOLD FOR PROCEDURE AND OR TODAY. PATIENT TO GO TO RADIOLOGY TO HAVE PICC REMOVED AND TO THE OR LATER TODAY TO HAVE HIS RIGHT IMPLANTED PORT REMOVED.
--- NOTE | 2020-08-17 13:00 | NUR ---
PATIENT GOING DOWN TO RADIOLOGY TO HAVE PICC LINE REMOVED.
[2020-08-17 13:44] VITALS: BP 120/61; PULSE 87; TEMP 98.8
--- NOTE | 2020-08-17 13:50 | NUR ---
PATIENT BACK IN ROOM FROM RADIOLOGY, UNABLE TO REMOVE PICC. PATIENT'S LEFT ARM WRAPPED IN WARM PACK PER AIVS. WILL ATTEMPTS TO REMOVE PICC TOMORROW.
--- NOTE | 2020-08-17 14:45 | NUR ---
PATIENT GOING DOWN TO OR TO HAVE RIGHT PORT REMOVED.
--- NOTE | 2020-08-17 15:38 | NUR ---
Patient was initially set to discharge today, however will not discharge due to difficulty removing PICC. ANTOINE updated Gunjan at [facility].
[2020-08-17 16:41] VITALS: BP 118/65; PULSE 92; TEMP 98.7
[2020-08-17 19:40] VITALS: BP 126/57; PULSE 86; TEMP 98.6
--- NOTE | 2020-08-17 19:52 | NUR ---
PT IN BED ASKING TO BE SUCTIONED. DAY SHIFT NURSE SUCTIONS PT. TUBE FEEDING INFUSING AT 70ML/HR. CALL LIGHT IN REACH.
[2020-08-17 23:14] VITALS: BP 129/65; PULSE 95; TEMP 98.8
[2020-08-18] VITALS (7 sets, daily range): BP systolic 125–148; BP diastolic 64–71; PULSE 88–97; TEMP 98.2–99.2
--- NOTE | 2020-08-18 07:46 | NUR ---
Patient resting in bed in semi-fowlers position. Patient complains of pain and need for suction. Suctioned patient as needed and cleared table of ice chip cups and emptied basin with used tissue. Call light, tissue and basin within reach.
--- NOTE | 2020-08-18 07:49 | NUR ---
PT SUCTIONED FREQUENTLY DURING THE NIGHT PER HIS REQUEST. MINIMAL AMOUNT SUCTIONED. MEDICATED X1 FOR PAIN. NO LOOSE BM'S THIS SHIFT. HOT PACKS APPLIED TO LEFT UPPER ARM AT SITE OF PICC. TAKES ICE CHIPS . ALL MEDS CRUSHED AND PUT THRU PEG. NEW BAG OF CONTINUOUS FEEDING AND NEW BAG OF FLUSH SET UP THRU KANGAROO PUMP AT 70ML/HR AND FLUSH AT 125ML/HR. NEW TUBING ADDED AT THIS TIME. BSS AT 24OO 216 AND RECEIVED 2 UNITS NOVOLOG, AND BSS AT O600 200 AND WILL NOT RECEIVE INSULIN. PROTONIX NOT GIVEN MED WAS ORDERED IV AND NO IV SITE AVAILABLE. DAY SHIFT NURSE AWARE. CALL LIGHT IN REACH. KLEENEX AND MANCERA BOUCHER WITHIN REACH FOR PT. REPORT GIVEN TO DAY SHIFT NURSE.
--- NOTE | 2020-08-18 10:30 | NUR ---
Contacted Dr. Goldsmith with regard to PICC removal plan. He recommended to attempt PICC removal at the bedside to due to patient's condition. Suspects venous spasm. Explained the plan to the patient. PICC intact left upper arm Dressing removed and site cleansed with chloraprep x 1, catheter was at 10cm marking, patient as flat as possible, catheter removed till at 20 cm with some resistance. skin prep, stat lock, chlorhexidine impregnated disk applied, and tegaderm applied. instructed primary care to apply warm moist packs and will attempt removal again as directed by Dr. Fournier. Contacted Dr. Goldsmith and he recommended to apply heat and attempt later today. If not successfule to apply heat over the weekend and attempt removal on Friday. Contacted Dr. Ford and explained plan. He will contact Dr. Goldsmith for recommendations if unable to remove PICC.
--- NOTE | 2020-08-18 11:30 | NUR ---
Patient has been calling for help every 20mins or so. He is constantly asking to be suctioned. He is producing thick green mucus. His norco dose was not enough, Dr Barth increased the dose and that seems to be working better. Tube feeding infusing between medications. Patient denies nausea. He has a student who is help caring for him. NO other changes at at this time. Call light within reach.
--- NOTE | 2020-08-18 15:31 | NUR ---
Explosive Operator contacted Gunjan at [facility] and advised that patient will not discharge today, possibly tomorrow.
--- NOTE | 2020-08-18 18:30 | NUR ---
Patients has been at bedside. She has a lot of questions, answered them as best I could. She spoke with Dr Barth as well. Patients PICC line was finally discontinued this afternoon. Patient and his is hoping he'll discharge tomorrow. Tube feeding infusing as ordered. No other changes at this time. Call light within reach.
--- NOTE | 2020-08-18 22:43 | NUR ---
Awake, alert, oriented x 3, able to communicate needs, answers yes/no questions appropriately, Tube feeding per G tube w/o difficulty, telemetry in use, VS stable, HOB elevated, offloading pressure areas with pillows, call marshall w/i reach.
[2020-08-19 00:04] VITALS: BP 124/67; PULSE 81; TEMP 98.6
[2020-08-19 04:12] VITALS: BP 119/70; PULSE 84; TEMP 97.9
[2020-08-19 07:12] VITALS: BP 106/54; PULSE 78; TEMP 97.9
[2020-08-19 08:21] LABS: MEAN CELL VOLUME 102 fl (80.0-100.0); MEAN CORPUSCULAR HGB CONC 33 g/dl (33.0-37.0); MEAN PLATELET VOLUME 10.1 fl (7.4-10.4); PLATELET COUNT 527 K/mm3 (130-400); RED BLOOD COUNT 2.32 M/mm3 (4.20-5.60); REDCELL DISTRIBUTION WIDTH-CV 15.9 % (11.5-14.5)
[2020-08-19 08:23] LABS: HEMATOCRIT 23.7 % (42.0-52.0); HEMOGLOBIN 7.9 g/dl (13.5-18.0); MEAN CORPUSCULAR HEMOGLOBIN 34 pg (27.0-31.0)
[2020-08-19 08:31] LABS: CALCIUM 8.1 mg/dL (8.4-10.2); CREATININE, serum 0.99 (0.66-1.25); POTASSIUM 4.6 mmol/L (3.4-5.0)
[2020-08-19 09:25] LABS: BAND 6 % (0-10); EOSINOPHIL 1 % (0-4); LYMPHOCYTE 11 % (20.0-51.0); NEUTROPHILS 71 % (42.0-75.2); PLATELET ESTIMATE INCREASED (NORMAL)
--- NOTE | 2020-08-19 11:44 | NUR ---
Patient is discharging home today 08/19 with [facility]. ANTOINE faxed discharge orders and communicated with home health providers to coordinate care. ANTOINE called Basil (P# [phone]) and left a message for return call. There are no new needs at this time.
--- NOTE | 2020-08-19 11:50 | NUR ---
Patient is discharging home. Discharge instructions discussed with his and patient. Copies of discharge instructions went over with . Patients packed up all the belongings and sent with patient. She understands she needs to call Friday to confirm or make a follow up appointment. She stated she has all the supplies at home to car for the trach. Patient walked out via wheel chair by this nurse.
--- NOTE | 2020-08-21 11:47 | NUR ---
ANTOINE vyasifed that patient did not start home health services at [facility]. Spoke with kiki, Patient initially was home health skilled due to picc but line was pulled and client declined PT services. [facility] was still reviewing for skill services. Currently is taking care of patient.
== END 2020-08-19 11:50 | disposition home health service (06) | DRG 314 ==
LOC: COL.ER 09:20 → SURG 13:45
PROVIDERS: Nurse Practitioner; Physician Assistant; Student in an Organized Health Care Education/Training Program; Surgery; ADMIT Family Medicine
PROC: 02HV33Z Insertion of Infusion Device into Superior Vena Cava, Percutaneous Approach (ICD-10-PCS; 2020-08-17)
PROC: 02PY33Z Removal of Infusion Device from Great Vessel, Percutaneous Approach (ICD-10-PCS; principal; 2020-08-17 15:05)
DX: T82.524A Displacement of infusion catheter, initial encounter (principal); A41.89 Other specified sepsis; D61.810 Antineoplastic chemotherapy induced pancytopenia; T80.211A Bloodstream infection due to central venous catheter, initial encounter; N17.9 Acute kidney failure, unspecified; E87.2 Acidosis; Y83.8 Other surgical procedures as the cause of abnormal reaction of the patient, or of later complication, without mention of misadventure at the time of the procedure; K21.9 Gastro-esophageal reflux disease without esophagitis; E03.9 Hypothyroidism, unspecified; D53.9 Nutritional anemia, unspecified; D72.819 Decreased white blood cell count, unspecified; E11.9 Type 2 diabetes mellitus without complications; T45.1X5A Adverse effect of antineoplastic and immunosuppressive drugs, initial encounter; G40.909 Epilepsy, unspecified, not intractable, without status epilepticus; Z90.49 Acquired absence of other specified parts of digestive tract; Z90.89 Acquired absence of other organs; Z93.0 Tracheostomy status; Z87.891 Personal history of nicotine dependence
CPT/HCPCS: 99223-AI; 99231-AI; 99232-AI; 99233-AI; 99239; C1751; C1769; C9113; J1170; J1815; J1956; J7030; Q9967

== ENCOUNTER → 2020-09-08 | Outpatient (CLI) | payer MEDICARE, OTHER ==
[~2020-09-08] MED LIST changes: +FLAGYL500 MG PEG; +HYCET SOLN PO
== END ==
LOC: COL.RAD 10:44
DX: R59.0 Localized enlarged lymph nodes (principal); C71.9 Malignant neoplasm of brain, unspecified; C01 Malignant neoplasm of base of tongue
CPT/HCPCS: Q9967

== ENCOUNTER 2020-09-13 16:05 | Observation (INO) | payer MEDICARE, OTHER ==
[~2020-09-13] VITALS: Ht 172.7 cm; Wt 88.6 kg
[~2020-09-13 16:05] MED LIST changes: -HYCET SOLN PO
[2020-09-13 17:15] LABS: BASO % 0.3 % (0.0-2.0); EOS # 0.5 (0.0-0.7); EOS % 3.5 % (0-4.0); GRAN # 12.7 (1.4-6.5); GRAN % 83.8 % (42.2-75.2); HEMOGLOBIN 11.4 g/dl (13.5-18.0); LYMPH # 0.8 (1.2-3.4); MEAN CELL VOLUME 108 fl (80.0-100.0); MEAN CORPUSCULAR HEMOGLOBIN 35 pg (27.0-31.0); MEAN CORPUSCULAR HGB CONC 32 g/dl (33.0-37.0); MEAN PLATELET VOLUME 10.2 fl (7.4-10.4); MONO # 1.1 (0.1-0.6); MONO % 7.1 % (1.7-9.3); PLATELET COUNT 382 K/mm3 (130-400); REDCELL DISTRIBUTION WIDTH-CV 15.9 % (11.5-14.5)
[2020-09-13 17:17] LABS: HEMATOCRIT 35.7 % (42.0-52.0)
[2020-09-13 17:52] LABS: ALANINE AMINOTRANSFERASE 24 U/L (4-49); ALBUMIN 4.3 gm/dL (3.5-5.0); ALKALINE PHOSPHATASE 158 U/L (50-136); ANION GAP 14 mmol/L (7-16); AST,SGOT 25 U/L (15-37); BILIRUBIN,TOTAL < 0.1 mg/dL (0.0-1.0); BLOOD UREA NITROGEN 49 mg/dL (9-20); C-REACTIVE PROTEIN 3.6 mg/dL (0.0-0.9); CALCIUM 9.6 mg/dL (8.4-10.2); CARBON DIOXIDE 27 mmol/L (22-30); CHLORIDE 102 mmol/L (98-107); CREATININE, serum 1.05 (0.66-1.25); GLUCOSE 200 mg/dL (74-106); LIPASE 267 U/L (23-300); POTASSIUM 5.1 mmol/L (3.4-5.0); SODIUM 142 mmol/L (137-145); TOTAL PROTEIN 9.1 gm/dL (6.4-8.2)
[2020-09-13 20:18] LABS: COLLECTION METHOD CLEAN CATCH
[2020-09-13 20:34] LABS: MUCOUS Present /lpf; PH 7 (5-8); SQUAMOUS EPITHELIAL 0-2 /hpf; URINE APPEARANCE Clear; URINE BACTERIA None Seen /hpf; URINE BILIRUBIN Negative (NEGATIVE); URINE BLOOD Negative (NEGATIVE); URINE COLOR Yellow; URINE GLUCOSE 1+ (NEGATIVE); URINE KETONE Negative (NEGATIVE); URINE LEUKOCYTE ESTERASE Negative (NEGATIVE); URINE NITRATE Negative (NEGATIVE); URINE PROTEIN(semi-quant) Negative (NEGATIVE); URINE RBC 0-2 /hpf; URINE UROBILINOGEN Negative (NEGATIVE)
--- NOTE | 2020-09-13 22:00 | NUR ---
Patient up from ED via stretcher. He has complaints of pain to his abdomen. Oriented to room and call light. Admission complete. Call light in reach.
[2020-09-14] VITALS (7 sets, daily range): BP systolic 132–145; BP diastolic 67–87; PULSE 74–110; TEMP 97.9–98.4
--- NOTE | 2020-09-14 00:45 | NUR ---
Patient's blood sugar is 143. No insulin required.
--- NOTE | 2020-09-14 01:00 | NUR ---
Meggan in to see patient. New orders. NS started 125 ml/hr. Unable to give phenobarbital or dilantin due to computers being down. Pharmacy was not able to approve orders. Seizure pads put on bed.
--- NOTE | 2020-09-14 03:30 | NUR ---
PAtient stated he needed to have a bowel movement. Patient up to bedside commode continent of stool. GI panel collected and sent down to lab.
[2020-09-14] MEDS ORDERED: HYCET SOLN PO (05:52)
--- NOTE | 2020-09-14 10:47 | NUR ---
PT IN BED AND CONTINUES TO CALL FOR SUCTIONING. SUCTIONING COMPLETED ON A FREQUENT BASIS. MEDICATIONS REVIEWED AND REPLACED NEEDED WITH JOSE ARMANDO PHARMACIST.
--- NOTE | 2020-09-14 11:58 | NUR ---
ANTOINE contacted the patient's , Basil (ph#[phone]), to discuss discharge plan and re-admit. The patient recently discharged from the hospital, 08/19, and returned back home with his . Home health was ordered and the patient had services from [facility] in the past. ANTOINE followed up with Gunjan at [facility]. Gunjan reports that services were stopped due to them only providing care for his PICC and the patient had his PICC removed. The patient lives in [place] with his . Basil reports that she assists the patient with bathing and that he has a walker. Basil states that she would be interested in some help with bathing. ANTOINE discussed getting a bathaide from home health. Basil was interested in this and would want to use [facility]. The patient's PCP is Dr. Cristiano Urias and he receives his medications from [facility]. The patient's DPOA-HC is in EMR and it designates his and son, Manny (ph#[phone]). Basil reports that the plan is for the patient to return back home with her upon discharge. ANTOINE contacted and faxed a referral to Gunjan at [facility].
--- NOTE | 2020-09-14 15:53 | NUR ---
PT'S HERE AND PROVIDING PERSONAL CARES.
--- NOTE | 2020-09-14 16:05 | NUR ---
Gunjan, at [facility], reports that if the patient and his only want a bathe aide that it would be private pay. ANTOINE staffed with the patient's RN. His RN reports that the patient is going to be getting a PICC placed and will tentatively go home with it. ANTOINE informed Gunjan of this. Gunjan reports that if the patient does go home with the PICC, then they could restart services for him for residential and an aide would then be covered under his Medicare. ANTOINE to continue to follow.
--- NOTE | 2020-09-14 22:00 | NUR ---
Patient up to bedside commode twice. Continent of stool and urine. Requesting to be suctioned frequently. Encouraging patient to try and cough some of it out.
[2020-09-15] VITALS (7 sets, daily range): BP systolic 117–138; BP diastolic 20–74; PULSE 70–105; TEMP 97.4–98.6
--- NOTE | 2020-09-15 02:45 | NUR ---
PAtient has complaints of pain. PRN dilaudid administered.
--- NOTE | 2020-09-15 07:50 | NUR ---
Patient in bed resting. Suction provided at this time. Trach and peg tube noted. IV fluids infusing per orders to left forarm IV. Denies pain at this time. Patient denies further needs at this time.
--- NOTE | 2020-09-15 08:36 | NUR ---
Ruth in to place picc line.
[2020-09-15 09:13] LABS: BASO # 0.1 (0.0-0.2); BASO % 0.8 % (0.0-2.0); EOS # 0.3 (0.0-0.7); EOS % 4.1 % (0-4.0); GRAN # 4.7 (1.4-6.5); GRAN % 77.7 % (42.2-75.2); LYMPH # 0.5 (1.2-3.4); LYMPH % 8.4 % (20.0-51.0); MEAN CELL VOLUME 108 fl (80.0-100.0); MEAN CORPUSCULAR HGB CONC 32 g/dl (33.0-37.0); MEAN PLATELET VOLUME 10.3 fl (7.4-10.4); MONO # 0.5 (0.1-0.6); MONO % 8.5 % (1.7-9.3); RED BLOOD COUNT 2.64 M/mm3 (4.20-5.60); REDCELL DISTRIBUTION WIDTH-CV 15.6 % (11.5-14.5)
[2020-09-15 09:23] LABS: HEMATOCRIT 28.5 % (42.0-52.0); MEAN CORPUSCULAR HEMOGLOBIN 34 pg (27.0-31.0); PLATELET COUNT 262 K/mm3 (130-400)
[2020-09-15 09:25] LABS: CALCIUM 8.5 mg/dL (8.4-10.2); CREATININE, serum 0.91 (0.66-1.25); POTASSIUM 4.3 mmol/L (3.4-5.0)
--- NOTE | 2020-09-15 11:27 | NUR ---
ANTOINE attended clinical rounds. The patient may be able to d/c tomorrow, 09/16. SW staffed with the hospitalist. The patient will keep the PICC when he discharges. ANTOINE updated Gunjan at [facility]. Gunjan reports that they can accept the patient for services and provide PICC care. ANTOINE attempted to contact the patient's , Basil, to update. ANTOINE left her a voicemail.
--- NOTE | 2020-09-15 14:28 | NUR ---
The patient's , Basil, returned ANTOINE's phone call. ANTOINE updated her on [facility] acceptance to continue PICC care. Basil was agreeable to the plan.
--- NOTE | 2020-09-15 16:53 | NUR ---
Contacted Dr. Brumfield, patient states he feels like he usually does before having a seizure. Would like additional dose of dilantin. No new orders at this time.
--- NOTE | 2020-09-15 19:28 | NUR ---
Patient doing well throughout the day, suctioned multiple times throughout the day. Spouse at bedside this afternoon. Denies further needs at this time. Will report off to material handler 2nd shift.
--- NOTE | 2020-09-15 21:20 | NUR ---
Pt feeding rate was increased by 20ml. Pt currently sitting up in bed. Pt tach was suctioned at this time, pt tolerated well. Pt has his call light within reach.
[2020-09-16 03:39] VITALS: BP 130/58; PULSE 90; TEMP 98.3
--- NOTE | 2020-09-16 03:59 | NUR ---
Pt is currently sleeping in bed. Pt has been sleep since his last breathing treatment. Pt did call often to have his trach suctioned. Pt tolerated well. Pt has had no complaints of pain. Pt did have some concerns about his medication. After going over his medication list pt felt better. Pt has been up to the bedside commode twice during the shift. Pt has had one small bowel movment. Pt has his call light within reach.
[2020-09-16 06:01] LABS: BASO % 0.5 % (0.0-2.0); EOS # 0.3 (0.0-0.7); EOS % 5.6 % (0-4.0); GRAN # 4.5 (1.4-6.5); GRAN % 74.7 % (42.2-75.2); LYMPH # 0.6 (1.2-3.4); LYMPH % 9.1 % (20.0-51.0); MEAN CELL VOLUME 107 fl (80.0-100.0); MEAN CORPUSCULAR HGB CONC 32 g/dl (33.0-37.0); MEAN PLATELET VOLUME 10.3 fl (7.4-10.4); MONO # 0.6 (0.1-0.6); MONO % 9.8 % (1.7-9.3); PLATELET COUNT 268 K/mm3 (130-400); RED BLOOD COUNT 2.64 M/mm3 (4.20-5.60); REDCELL DISTRIBUTION WIDTH-CV 15.5 % (11.5-14.5)
[2020-09-16 06:05] LABS: HEMATOCRIT 28.2 % (42.0-52.0); MEAN CORPUSCULAR HEMOGLOBIN 34 pg (27.0-31.0)
--- NOTE | 2020-09-16 06:13 | NUR ---
Pt back in bed pt was just assisted to the restroom. Pt has his call light within reach and his bed is in lowest position.
[2020-09-16 06:14] LABS: CALCIUM 8.7 mg/dL (8.4-10.2); CREATININE, serum 0.95 (0.66-1.25)
--- NOTE | 2020-09-16 07:15 | NUR ---
Patient requesting pain medication at this time. Given per orders. Tube feeding held per orders for dilantin administration at 0900. Patient suctioned at this time, repositioned. Assessment complete. Denies further needs at this time.
[2020-09-16 07:20] VITALS: BP 123/64; PULSE 86; TEMP 98.5
--- NOTE | 2020-09-16 07:39 | NUR ---
Pt is alert and oriented x3. Heart tones are present and normal, no murmur noted. Lung sounds were clear in all lobes upon auscultation. PEG tube was flushed and residual was aspirated. PEG tube is clamped per medication order. Pt's trach was suctioned with small amounts present. Pt tolerated it well.
--- NOTE | 2020-09-16 10:22 | NUR ---
Patient will discharge home today 09/16 with [facility]. SW left message for [facility] to notify of patient discharge. D/C orders have been faxed. [facility] will provide transportation. There are no other needs at this time.
[2020-09-16 11:24] VITALS: BP 131/68; PULSE 78; TEMP 98
--- NOTE | 2020-09-16 12:33 | NUR ---
Contacted [employer] to speak with patient spouse about tube feedings.
--- NOTE | 2020-09-16 14:00 | NUR ---
Discharge education provided to patient and spouse. Educated on when to call provider and setting up follow up appointments. Patient discharging home with home health services. Trach care reviewed with patient spouse and patient. Educated on PICC line remaining in place, HH to assist with picc line care.
--- NOTE | 2020-09-16 14:15 | NUR ---
Pt was taken down to ER exit via wheelchair escorted by surgical staff and and transferred to auto/home. Pt discharged at 1410.
== END 2020-09-16 14:13 | disposition home health service (06) ==
LOC: COL.ER 16:05 → SURG 19:04
PROVIDERS: Family Medicine; Nurse Practitioner Family; ADMIT Hospitalist
DX: R10.9 Unspecified abdominal pain (principal); D72.829 Elevated white blood cell count, unspecified; E87.5 Hyperkalemia; N17.9 Acute kidney failure, unspecified; G40.909 Epilepsy, unspecified, not intractable, without status epilepticus; K21.9 Gastro-esophageal reflux disease without esophagitis; E11.9 Type 2 diabetes mellitus without complications; E03.9 Hypothyroidism, unspecified; Z90.49 Acquired absence of other specified parts of digestive tract; Z87.891 Personal history of nicotine dependence
CPT/HCPCS: 99239; C1751; C9113; G0378; J1170; J1650; J2250; J2405; J2560; J7030; J7120; Q2009; Q9967

== ENCOUNTER 2020-11-15 01:42 | Emergency (ER) | payer MEDICARE, OTHER ==
[~2020-11-15] VITALS: Ht 175.3 cm; Wt 81.8 kg
[~2020-11-15 01:42] MED LIST changes: +HYCET SOLN PO
[2020-11-15 01:44] VITALS: TEMP 97.5
[2020-11-15 04:05] VITALS: BP 150/61; PULSE 80
== END 2020-11-15 04:10 | disposition home or self-care (01) ==
LOC: COL.ER 01:42
DX: J95.09 Other tracheostomy complication (principal); G40.909 Epilepsy, unspecified, not intractable, without status epilepticus; E03.9 Hypothyroidism, unspecified; E11.9 Type 2 diabetes mellitus without complications; Z85.818 Personal history of malignant neoplasm of other sites of lip, oral cavity, and pharynx; Z87.891 Personal history of nicotine dependence; Z79.890 Hormone replacement therapy; Z79.84 Long term (current) use of oral hypoglycemic drugs